=== PATIENT | female | born 1945 | race Caucasian/White ===

== ENCOUNTER 2017-05-18 03:08 | Inpatient (IN) ==
[2017-05-18] MEDS ORDERED: *HR* Morphine 2 MG/ML SYRINGE IVP PRN (09:02)
[2017-05-18] MEDS ORDERED: Naloxone 0.4 MG/ML INJ IVP PRN (09:02)
--- NOTE | 2017-05-18 09:13 | Internal Med History&Physical ---
Date of Encounter: 05/18/17 Time of Encounter: 09:08 Assessment and Plan (1) NSTEMI (non-ST elevated myocardial infarction) Current visit: No Status: Acute 72/female He has multiple comorbid conditions. Was evaluated at [facility] for worsening shortness of breath. Noted that patient denies chest pain at [facility] are now in this hospital. Patient was transferred to this hospital as she has elevated troponin: 0.89. I examined the patient and patient denied any chest pain but was complaining of difficulty breathing. Patient has a tracheostomy in place. The tracheostomy is functioning well. Patient is a previous history of for cardiac catheterization 20 years back and it was not a good experience for her. Patient is of opinion that cardiac catheterization is bad for health. Patient has a previous history of a coronary artery bypass graft. During my examination of the patient I received a message from RN that lab informed critical value of troponin more than 20. We did a stat EKG. EKG did not show any ST elevation. I personally discussed this case with Dr. Escamilla was interventional cardiology. Dr. Escamilla will take over care. (2) Diabetes mellitus Current visit: Yes Status: Acute Patient is known to have diabetes mellitus. Patient is presently on insulin pump. Patient does not remember endocrinology name. We will get our personal development educator and we will help her with the insulin pump management. I have discussed this with the patient's RN and she will arrange for the same. 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 Qualifiers: COPD type: unspecified COPD Qualified Code(s): J44.9 - Chronic obstructive pulmonary disease, unspecified (4) Tracheostomy in place Current visit: Yes Status: Acute Patient has a tracheostomy in place. Patient is unable to tell why she has a tracheostomy in place I do not think at this point patient needs an pulmonology/ ENT for tracheostomy care. I might call respiratory therapy Mariann to evaluate her tracheostomy. (5) DVT prophylaxis Current visit: Yes Status: Acute Internal Medicine - H&P: HPI Chief complaint: Difficulty in breating. Admitted From: Intrahospital Transfer Plans for Post Hospital Care: Home History of present illness: PCP: Dr. Tera Mcintosh. Brief past medical history: Known to have her diabetes on insulin pump, hypertension, hyperlipidemia, coronary artery disease, previous coronary artery bypass graft, COPD, known to have a tracheostomy, mild obesity. History of present medical illness: This patient is a transfer patient from [facility]. He was presented to the [facility] for difficulty in breathing. Patient did not call PCP in spite of that patient [facility] and was presented to the [place] emergency room. Patient claims that her difficulty in breathing got worse when her was suctioning her tracheostomy every and she informed her that she is not feeling good in terms of her shortness of breath and that is the reason they decided to call squad and go to the [facility] for further evaluation. Patient was evaluated in the [facility]. Noted that patient's troponin was 0.89 and that is the reason patient was sent to this hospital for further evaluation. Patient denies chest pain in the [facility] as well as patient denies chest pain during my examination. Reason for admission: Non-ST elevation myocardial infarction for further management. Family history: Noncontributory Past Med Surg Social Fam HX - Past Medical History Medical history: coronary artery disease, dementia, diabetes, hyperlipidemia, hypertension Psychiatric history: anxiety - Past Surgical History Surgical History: angioplasty/stent, cholecystectomy, coronary bypass (CABG), hysterectomy, orthopedic, other, other - Social History Smoking Status: Former smoker Smokeless Tobacco Status: No Alcohol use: rarely Drug use: none - Family History Mother Hx Family Cardiac Disorders: Yes ([place]) Internal Medicine - H&P: Meds Aspirin 81 mg PO DAILY 03/22/16 [History] Atorvastatin [Lipitor] 40 mg PO HS 03/22/16 [History] Clopidogrel [Plavix] 75 mg PO DAILY 03/22/16 [History] Insulin LISPRO [Humalog] 0 unit SQ DAILY 03/22/16 [History] Isosorbide MONOnitrate (24 HR) [Imdur] 60 mg PO BID 03/22/16 [History] Metoprolol [Lopressor] 100 mg PO BID 03/22/16 [History] rOPINIRole [Requip] 2 mg PO HS 03/22/16 [History] HydrOXYzine 10 mg PO Q6H PRN 12/16/16 [History] Gabapentin [Neurontin] 100 mg PO TID 05/18/17 [History] 3 Allergy/AdvReac Type Severity Reaction Status Date / Time cephalexin [From Keflex] Allergy Rash Verified 08/09/16 12:19 latex Allergy Rash Verified 08/09/16 12:19 morphine Allergy Confusion Verified 08/09/16 12:19 ibuprofen AdvReac Confusion Verified 08/09/16 12:19 metal Allergy Rash Uncoded 03/22/16 15:13 All Systems PM: A 10-system review of systems was performed and is negative for pertinent findings except as documented above in the HPI. - Constitutional Constitutional: no chills, no fever(s), no night sweats - EENT Eyes: no change in vision, no discharge, no pain, no photophobia Ears: no ear discharge, no ear pain, no tinnitus Nose, mouth and throat: no dysphagia, no nasal discharge, no neck pain, no sore throat - Cardiovascular Cardiovascular ROS IM: diaphoresis, dyspnea, palpitations, no chest pain, no lightheadedness, no syncope - Respiratory Respiratory: cough, dyspnea, wheezing, no excessive phlegm production - Gastrointestinal Gastrointestinal: no abdominal pain, no diarrhea, no hematemesis, no hematochezia, no melena, no nausea, no vomiting - Genitourinary Genitourinary: no change in urinary stream, no dysuria, no flank pain, no hematuria - Musculoskeletal Musculoskeletal ROS IM: no numbness, no tingling - Integumentary Integumentary IM: no rash, no unusual bruising - Neurological Neurological ROS: no confusion, no convulsions, no focal weakness, no numbness, no tingling, no tremor(s) - Hematologic/Lymphatic Hematologic/Lymphatic: no easy bruising - Constitutional Vitals: Temp Pulse Resp BP Pulse Ox 98.1 F 63 12 168/48 97 05/18/17 07:15 05/18/17 07:15 05/18/17 07:15 05/18/17 07:15 05/18/17 07:15 General appearance: Present: A&O X 3, pleasant, no acute distress, answers questions appropriately - Head Head exam: Present: atraumatic, normocephalic - Eye Eye exam: Present: PERRL, conjuntiva pink, sclera anicteric Pupils: Present: PERRL - Neck Neck exam general surgery: Present: supple, trachea midline. Absent: lymphadenopathy Additional comments: Patient has a well-placed tracheostomy. Tracheostomy is apparently functioning well. - Respiratory Respiratory exam: Present: CTAB. Absent: accessory muscle use, rales, rhonchi, wheezes - Cardiovascular Cardiovascular exam: Present: RRR, +S1, +S2. Absent: diastolic murmur, gallop, rubs, systolic murmur - GI/Abdominal GI/Abdominal exam: Present: normal bowel sounds, soft, no peritoneal signs. Absent: distended, tenderness Additional comments: Patient is a insulin pump. - Extremities Exam Extremities exam: Present: warm, radial pulses palpable and symmetrical. Absent : calf tenderness, cyanotic, pedal edema - Neurological Exam Neurological exam: Present: CN II-XII intact, oriented X3, no focal deficits. Absent: pronater drift, facial droop, speech deficit - Skin Skin exam: Present: dry, intact Internal Med - H&P Results - Labs Labs: Cardiac Enzymes 05/18/17 Range/Units 07:25 Troponin I 20.48 H* (0-0.03) ng/mL
[2017-05-18] MEDS ORDERED: Aspirin 325 MG TABLET PO SCH (09:15)
[2017-05-18 09:27] LABS: Basophils % 0.4 %; Eosinophils # 0.2 K/mcL (0.0-0.6); Hematocrit 36.3 % (35.3-44.9); Hemoglobin 11.9 g/dL (11.5-15.4); Immature Granulocytes % 0.3 % (0-4); Lymphocytes # 2.2 K/mcL (0.6-4.6); Lymphocytes % 21.3 %; Mean Corpuscular HGB Conc 32.8 g/dL (31.6-35.5); Mean Corpuscular Hemoglobin 30.8 pg (28.0-33.3); Mean Platelet Volume 12.3 fL (9.4-12.4); Monocytes # 0.8 K/mcL (0.0-1.3); Monocytes % 7.8 %; Neutrophils # 7.1 K/mcL (1.6-8.9); Platelet Count 157 K/mcL (140-400); Red Blood Count 3.86 M/mcL (3.82-4.97); Segmented Neutrophils % 68.2 %
[2017-05-18 09:28] LABS: Chol/HDL Ratio 2.8 (0-4.9); Cholesterol 123 mg/dL (< 200); HDL Cholesterol 44 mg/dL (40-59); LDL Cholesterol,Calculated 60 mg/dL (0-99); Triglycerides 97 mg/dL (< 150)
[2017-05-18 09:40] LABS: Alanine Aminotransferase 18 Units/L (0-55); Albumin 3.2 g/dL (3.5-5.0); Albumin/Globulin Ratio 0.8 (1.1-2.2); Alkaline Phosphatase 85 Units/L (38-126); Aspartate Amino Transferase 65 Units/L (5-34); BUN/Creatinine Ratio 20 (6-26); Bilirubin,Total 0.9 mg/dL (0.2-1.2); Blood Urea Nitrogen 16 mg/dL (7-20); Carbon Dioxide 30 mEq/L (19-29); Chloride 105 mEq/L (98-109); Globulin 4.1 g/dL (2.4-3.5); Glucose 114 mg/dL (70-99); Osmolality,Calculated 302 (280-300); Potassium 3.6 mEq/L (3.5-4.5); Sodium 145 mEq/L (136-145); Total Protein 7.3 g/dL (6.0-8.3); eGFR For African Americans > 60 (> 60); eGFR For Non-African Americans > 60 (> 60)
--- NOTE | 2017-05-18 10:15 | Cardiology Consult Note ---
Date of Encounter: 05/18/17 Time of Encounter: 10:12 Assessment and Plan (1) NSTEMI (non-ST elevated myocardial infarction) Current Visit: Yes Status: Acute Troponin 0.89, 20.48, 21.74. EKG with ischemic changes. Pt with known CAD hx--[facility] 07/2011: Three-vessel CAD, chronic occlusion of RCA and SVG to RPDA. Progression of disease in the mid RCA and RCA marginal branch 2 small for PCI. Stable LAD disease and proximal circumflex stent. Successful PCI to high-grade OM 3, which supplies collateral to an occluded RCA. Echo 09/02/16: LVEF 60-65%, mild concentric LVH, moderate LVDD. Recommend [facility] today. R/B/A discussed at length. Pt initially declined, but is now considering. She is hesitant due to dissection during [facility] in 1997 that warranted emergent CABG. She is waiting for her to get there, then will make a final decision. Continue heparin gtt, ASA, Statin, Plavix, BB. Echo to evaluate structure and function. Continue to follow. (2) CAD (coronary artery disease) Current Visit: Yes Status: Acute [facility] 07/2011: Three-vessel CAD, chronic occlusion of RCA and SVG to RPDA. Progression of disease in the mid RCA and RCA marginal branch 2 small for PCI. Stable LAD disease and proximal circumflex stent. Successful PCI to high-grade OM 3, which supplies collateral to an occluded RCA. ASA, Plavix, Statin, BB, Imdur. Qualifiers: Coronary Disease-Associated Artery/Lesion type: unspecified vessel or lesion type [place] vs. transplanted heart: [place] heart Associated angina: angina presence unspecified Qualified Code(s): I25.10 - Atherosclerotic heart disease of [place] coronary artery without angina pectoris Discussion w patient/family: The assessment and plan as outlined above was discussed with the patient and/or family members who expressed understanding and agreement. All questions were answered. Thank you for involving us in the care of your patient. Please call with any questions. I will discuss all the above with Dr. Talley and Andi and make changes as necessary. History of Present Illness Consult date: 05/18/17 Requesting physician: Darnell Ojeda Consult reason: NSTEMI Chief complaint: dyspnea History of present illness: Ms. Valero is a 72 year old female with PMH of tracheal stenosis s/p tracheostomy , CAD, prior PCI, prior CABG, DM type II, HLD, essential HTN, and MATT. Most recent [facility] in 2011 resulted in PCI to OM3. Pt presented with symptoms of feeling "unwell" yesterday morning then last night developed worsening dyspnea, cough and thick yellow secretions that prompted ED evaluation. Initial troponin 0.89, transferred to [facility] where troponin increased to 20.48, 21.74. Pt denies chest pain. EKG with ischemic changes. Previous records reviewed ([place]): [facility] 08/2008: EF 50%. Inferobasal hypokinesis. Left main normal. LAD proximal 40% stenosis, diffuse 30% stenosis. D1 90% stenosis (small vessel). Ramus ostial 90 % stenosis (small vessel). Circumflex mid 35% stenosis, proximal 95% stenosis ( stent placed). OM1 90% stenosis. RCA proximal 100% stenosis. Collaterals to RPDA territory. Carotid duplex 05/2011: Tortuous vessels bilaterally. No significant stenosis bilaterally. Pharmacological nuclear stress test 06/2011: Scarring of basal inferior segment , mild leatha-infarct ischemia. Reversible ischemia involving the anterior and posterior lateral and anteroapical segments. [facility] 07/2011: Three-vessel CAD, chronic occlusion of RCA and SVG to RPDA. Progression of disease in the mid RCA and RCA marginal branch 2 small for PCI. Stable LAD disease and proximal circumflex stent. Successful PCI to high-grade OM 3, which supplies collateral to an occluded RCA. Echo 09/02/16: LVEF 60-65%, mild concentric LVH, moderate LVDD. Past Med Surg Social Fam HX - Past Medical History Medical history: coronary artery disease, dementia, diabetes, hyperlipidemia, hypertension Psychiatric history: anxiety - Past Surgical History Surgical History: angioplasty/stent, cholecystectomy, coronary bypass (CABG), hysterectomy, orthopedic, other, other - Social History Smoking Status: Former smoker Smokeless Tobacco Status: No Alcohol use: rarely Drug use: none - Family History Mother Hx Family Cardiac Disorders: Yes ([place]) Medications and Allergies Aspirin 81 mg PO DAILY 03/22/16 [History] Atorvastatin [Lipitor] 40 mg PO HS 03/22/16 [History] Clopidogrel [Plavix] 75 mg PO DAILY 03/22/16 [History] Insulin LISPRO [Humalog] 0 unit SQ DAILY 03/22/16 [History] Isosorbide MONOnitrate (24 HR) [Imdur] 60 mg PO BID 03/22/16 [History] Metoprolol [Lopressor] 100 mg PO BID 03/22/16 [History] rOPINIRole [Requip] 2 mg PO HS 03/22/16 [History] HydrOXYzine 10 mg PO Q6H PRN 12/16/16 [History] Gabapentin [Neurontin] 100 mg PO TID 05/18/17 [History] 3 Allergy/AdvReac Type Severity Reaction Status Date / Time cephalexin [From Keflex] Allergy Rash Verified 08/09/16 12:19 latex Allergy Rash Verified 08/09/16 12:19 morphine Allergy Confusion Verified 08/09/16 12:19 ibuprofen AdvReac Confusion Verified 08/09/16 12:19 metal Allergy Rash Uncoded 03/22/16 15:13 All Systems Review: A 10-system review of systems was performed and is negative for pertinent findings except as documented above in the HPI. - Constitutional Constitutional: fatigue - Cardiovascular Cardiovascular: as per HPI, dyspnea at rest, dyspnea on exertion - Respiratory Respiratory: cough, dyspnea Physical Examination Vital Signs, Last 4 Hours Temp Pulse Resp BP Pulse Ox 05/18/17 07:15 98.1 F 63 12 168/48 97 Vital Signs Temp Pulse Resp BP Pulse Ox 05/18/17 07:15 98.1 F 63 12 168/48 97 05/18/17 05:15 98.2 F 65 16 153/54 97 Intake and Output 05/17/17 05/18/17 05/18/17 23:59 07:59 15:59 Intake Total 0 / 0 Output Total 0 / 0 Balance 0 / 0 Intake: Oral 0 / 0 Output: Urine 0 / 0 Other: Weight 90.6 kg Blood Glucose* 202 Patient Weight 05/18/17 23:59 Weight 90.6 kg General: Conversant, No Apparent Distress HEENT: Atraumatic, Normocephaly, Mucus Membranes Moist Neck: No JVD, Normal carotid pulses Cardiac: Reg Rate and Rhythm, Normal S1 and S2, No Murmur Lungs: Other (trach) Neuro: Alert and responsive, No focal deficits noted Abdomen: Soft, Non-Tender Skin: No rashes noted on visualized skin Musculoskeletal: No Chest Wall Tenderness Extremities: No Clubbing, No Cyanosis, No Edema, Normal Pulses Results 05/18/17 08:40 05/18/17 08:40 Lab Results 05/18/17 05/18/17 05/18/17 07:25 07:25 08:40 WBC Hgb Hct Plt Count APTT 30.4 Sodium 145 Potassium 3.6 Chloride 105 Carbon Dioxide 30 H BUN 16 Creatinine 0.79 Glucose 114 H Calcium 9.0 Total Bilirubin 0.9 AST 65 H ALT 18 Alkaline Phosphatase 85 Troponin I 20.48 H* 05/18/17 05/18/17 08:40 08:40 WBC 10.3 Hgb 11.9 Hct 36.3 Plt Count 157 APTT Sodium Potassium Chloride Carbon Dioxide BUN Creatinine Glucose Calcium Total Bilirubin AST ALT Alkaline Phosphatase Troponin I 21.74 H* Short CBC 05/18/17 Range/Units 08:40 WBC 10.3 (4.3-11.1) K/mcL Hgb 11.9 (11.5-15.4) g/dL Hct 36.3 (35.3-44.9) % Plt Count 157 (140-400) K/mcL Neutrophils # 7.1 (1.6-8.9) K/mcL BMP 05/18/17 Range/Units 08:40 Sodium 145 (136-145) mEq/L Potassium 3.6 (3.5-4.5) mEq/L Chloride 105 (98-109) mEq/L Carbon Dioxide 30 H (19-29) mEq/L BUN 16 (7-20) mg/dL Creatinine 0.79 (0.57-1.11) mg/dL Glucose 114 H (70-99) mg/dL Calcium 9.0 (8.6-10.8) mg/dL Cardiac Enzymes 05/18/17 05/18/17 Range/Units 08:40 07:25 Troponin I 21.74 H* 20.48 H* (0-0.03) ng/mL Liver Function 05/18/17 Range/Units 08:40 Total Bilirubin 0.9 (0.2-1.2) mg/dL AST 65 H (5-34) Units/L ALT 18 (0-55) Units/L Alkaline Phosphatase 85 (38-126) Units/L Albumin 3.2 L (3.5-5.0) g/dL Active Medications Aspirin (Aspirin) 81 mg PO DAILY [facility] Stop: 11/17/17 09:16 Atorvastatin Calcium (Lipitor) 40 mg PO HS [facility] Stop: 11/17/17 09:16 Clopidogrel Bisulfate (Plavix) 75 mg PO DAILY [facility] Stop: 11/18/17 09:01 Gabapentin (Neurontin) 100 mg PO TID [facility] Stop: 11/17/17 15:01 Isosorbide Mononitrate (Imdur) 60 mg PO BID [facility] Stop: 11/17/17 21:01 Metoprolol Tartrate (Lopressor) 100 mg PO BID [facility] Stop: 11/17/17 21:01 Morphine Sulfate (Morphine Sulfate) 2 mg IVP Q4HR PRN PRN Reason: Severe Pain (7-10) Stop: 11/17/17 09:03 Naloxone HCl (Narcan) 0.4 mg IVP Q2MIN PRN PRN Reason: Opioid Reversal Stop: 11/17/17 09:03 Ropinirole HCl (Requip) 2 mg PO HS [facility] Stop: 11/17/17 21:01 - Imaging and Cardiology Echo: report reviewed Cardiac cath: report reviewed - EKG Interpretation EKG results cardiology: personally reviewed (SR, ischemic changes) Consult Discharge Plan - Plan Referrals: Tera Mcintosh MD [Primary Care Provider] - 05/25/17 11:30 am
[2017-05-18] MEDS ORDERED: *HR* Heparin 10,000 UNIT/10 ML VIAL ONE (15:07)
[2017-05-18] MEDS ORDERED: Heparin 1,000 UNITS/500 mL NS 500 ML ONE (15:07)
[2017-05-18] MEDS ORDERED: 0.9 % Sodium Chloride 1,000 ML ONE ×2 (15:07→15:28)
[2017-05-18] MEDS ORDERED: Nitroglycerin 1,000 MCG/10 ML VIAL IV ONE (15:18)
[2017-05-18] MEDS: Gabapentin 100 MG CAPSULE PO SCH ×2 (15:20→21:26)
[2017-05-18] MEDS ORDERED: *HR* Heparin 5,000 UNIT/ML VIAL IVP PRN ×4 (15:28→15:42)
[2017-05-18] MEDS ORDERED: *HR* Heparin 5,000 UNIT/ML VIAL IVP ONE (15:28)
[2017-05-18] MEDS ORDERED: *HR* Midazolam HCl 2 MG/2 ML VIAL ONE (15:30)
[2017-05-18] MEDS ORDERED: Heparin 25,000 UNIT/500 ML D5W 25,000 UNIT/500 ML MLS IVC SCH ×2 (15:30→15:45)
[2017-05-18] MEDS ORDERED: *HR* Dextrose 50 % in Water (Syg) 50 ML SYRINGE ONE (15:42)
--- NOTE | 2017-05-18 17:57 | Invasive Diagnostic Lab Proc ---
Name: Sera Valero Date of Study: 05/18/2017 Date: 1945 Ht: 64.2in Medical Record#: [id number] Age: 72 Wt: 198.42lb Gender: Female BSA: 1.95 Order #: [id number] BMI: 33.87 Physicians Procedure Physician: Matthew Escamilla DO Referring MD: Referring MD: Staff Name Position Time In Mabel Rodriguez RN Franchise Sales Director 04:33 PM Wally Jenkins RN Monitor 04:33 PM Marjorie Palma RT (R) Scrub 04:33 PM Indications Indication Non-Stemi Procedures Performed Procedure L HRT ART/GRFT ANGIO Pre-Procedure Checklist Informed consent is complete signed and on chart. H&P is on chart. ID band is on and ID verified with patient. Patient NPO for procedure The procedure was described for the patient and questions were answered. Blood Pressure: 170/50 ECG is on chart. Rhythm: NSR Plan of Care Patient will tolerate the procedure without complications. Adequate level of comfort will be maintained. Hemodynamics will remain stable Patient will recover from procedure without complications. Respiratory function will be maintained. Cardiac rhythm will remain stable. Patient temperature will be maintained. Patient and/or family have verbalized understanding of the procedure. Patient Education Chief Complaint/Reason for Test: Cardiac Cath Developmental Category: Geriatric (65+ years) Developmentally Appropriate for Age: Yes Learning Barriers: None Education Needs: Procedure Education Method: Verbal Information Taught: Cardiac Cath Educational Evaluation: Able to repeat information Intravenous Access Time IV Size Location DC'd Fluid/Drip Rate Units RN PICC Line Lt Arm 0.9NaCl 25 ml/hr Shyann Carrington RN Allergies latex metal PCN (penicillin) cephalexin morphine ibuprofen Vital Signs Time BP (mmHg) HR (bpm) O2 Sat. RR (bpm) LOC 170 / 50 65 98 % 16 5 = Fully awake and oriented or at pre-proc level 04:34 PM / % 5 = Fully awake and oriented or at pre-proc level 04:34 PM / % 5 = Fully awake and oriented or at pre-proc level 04:42 PM 134 / 107 86 100 % 16 04:47 PM 181 / 62 58 99 % 04:51 PM 181 / 66 58 99 % 36 04:56 PM 188 / 69 59 99 % 05:01 PM 176 / 65 56 99 % 11 05:06 PM 177 / 62 57 98 % 18 05:11 PM 162 / 56 58 98 % 15 05:16 PM 173 / 63 60 98 % 23 05:21 PM 175 / 60 65 97 % 38 05:26 PM 179 / 41 67 100 % 24 05:31 PM 182 / 64 60 100 % 15 05:36 PM 184 / 68 64 99 % 11 05:41 PM 174 / 130 60 100 % 18 Procedural Medications Time Medication Dose Units Method Given By 03:39 PM Versed 1 mg Intravenous Shyann Carrington RN 03:39 PM Oxygen 4 L/min trach mask Shyann Carrington RN 01:00 AM 03:47 PM D50 0.5 amp Intravenous Shyann Carrington RN 04:39 PM Oxygen 6 L/min nasal cannula Mabel Rodriguez RN 04:46 PM Versed 1 mg Intravenous Mabel Rodriguez RN 04:55 PM Lidocaine 2% 10 ml Subcutaneous Matthew Escamilla DO ASA Classification: CLASS II- Mild systemic disease (i.e. well-controlled diabetes, hypertension, asthma, cigarette smoking) Bhargav Score Preprocedure Postprocedure Activity 2- Moves 4 extremities sustained head lift Activity 2- Moves 4 extremities sustained head lift Circulation 2- SBP +/= 20 points of pre-anesthetic level Circulation 2- SBP +/= 20 points of pre-anesthetic level Consciousness 2- Awake and alert oriented x 3 Consciousness 2- Awake and alert oriented x 3 O2 Saturation 2- Able to maintain O2 satruation of 92% on room air O2 Saturation 2- Able to maintain O2 satruation of 92% on room air Respiratory 2- Able to deep breathe and cough well Respiratory 2- Able to deep breathe and cough well Total Score 10 Total Score 10 Contrast Agent: Isovue Diagnostic Contrast: 75 ml Total Contrast: 75 ml Fluoro Dose: 446 mGy Procedure Log Time Note Enter By 03:39 PM Time: 15:39 Versed 1 mg Intravenous Given by Shyann Carrington RN 03:40 PM Time: 15:39 Oxygen on at 4 L/min per trach mask by Shyann Carrington RN 03:40 PM Accu Check 85 [email or web address] 03:47 PM Time: 15:47 D50 0.5 amp Intravenous Given by Shyann Carrington RN [email or web address] 04:19 PM CathStat 04:33 PM Pt arrived to ammunition assembly laborer 2 at 16:32 tsites 04:33 PM Mabel Rdoriguez RN Position: Franchise Sales Director Time in: 16:33 tsites 04:33 PM Wally Jenkins RN Position: Monitor Time in: 16:33 tsites 04:34 PM Marjorie Palma RT (R) Position: Scrub Time in: 16:33 tsites 04:34 PM Patient charges- Angio tray pack, Navilyst 3mm J, Pulse Oximetry and ACIST tubing and transducer tsites 04:34 PM Case Delayed no, inpt tsites 04:34 PM Hair removed from procedure site in procedure lab using clippers. Bilateral groin prepped with Chloraprep by Marjorie Palma RT (R), safety strap applied then patient was draped. Skin intact. tsites 04:34 PM Physican paged/called 16:34. tsites 04:34 PM Physican responded and notified patient is ready 16:34 tsites 04:34 PM Physician arrived 16:34 tsites 04:34 PM Meet and greet completed tsites 04:34 PM Sign in performed according to hospital policy. tsites 04:34 PM Procedure start 16:34 tsites 04:34 PM Time: 16:34 Patient comfortable and pain free: Yes tsites 04:34 PM Time: 16:34LOC: 5 = Fully awake and oriented or at pre-proc level tsites 04:40 PM Time: 16:39 Oxygen on at 6 L/min per nasal cannula by Mabel Rodriguez RN tsites 04:40 PM Nitro paste removed. tsites 04:40 PM Pts own insulin pump removed prior to starting. tsites 04:40 PM Vitals capture started with the following parameters, Patient=Adult, Interval=5 min, Initial Xyfbhcka=772 mmHg, Deflation Rate=5 mmHg, Cuff placed on Left Arm 04:42 PM HR=86 bpm, CSFQ=744/107 mmhg, ApL7=672.0 %, Resp=16 B/min, Comment=nsr 04:46 PM Time: 16:46 Versed 1 mg Intravenous Given by Mabel Rodriguez RN tsites 04:46 PM Clinical Presentation: Non-STEMI tsites 04:47 PM HR=58 bpm, YNKL=022/62 mmhg, SpO2=99.0 %, Comment=sb 04:50 PM Time: 16:34LOC: 5 = Fully awake and oriented or at pre-proc level tsites 04:50 PM Time: 16:34 Patient comfortable and pain free: Yes tsites 04:51 PM HR=58 bpm, XPXE=065/66 mmhg, SpO2=99.0 %, Resp=36 B/min, Comment=sb 04:52 PM Recorded ECG: HR=58 Condition=Condition 1 04:54 PM Time out performed according to hospital policy tsites 04:54 PM Pressure channel 2 zeroed. 04:55 PM Time: 16:55 10 ml Lidocaine 2% to left groin Subcutaneous Given by Matthew Escamilla, tsites 04:56 PM HR=59 bpm, JDGM=109/69 mmhg, SpO2=99.0 %, Comment=sb 05:01 PM HR=56 bpm, QWTE=929/65 mmhg, SpO2=99.0 %, Resp=11 B/min, Comment=sb 05:01 PM Unsuccessful access attempt # 1 into the left Femoral artery. Manual pressure applied to achieve hemostasis.. [facility] 05:04 PM Micro-Introducer Kit utilized for sheath placement [facility] 05:05 PM Access obtained by percutaneous puncture. 6Fr 10cm Terumo Jasper sheath placed in left Femoral artery. [id number] [facility] 05:05 PM 6Fr FR 4 catheter inserted over the wire [facility] 05:05 PM Catheter selectively placed in left ventricle [facility] 05:06 PM Recorded Pressure: LV, HR=59, Condition=Condition 1 (Left Ventricle) LV 170/4/17 05:06 PM Recorded Pressure: LV, Ao, HR=58, Condition=Condition 1 (Left Ventricle) LV 176/5/17, (Aorta) Ao 179/43/86 05:06 PM HR=57 bpm, AZWG=975/62 mmhg, SpO2=98.0 %, Resp=18 B/min, Comment=sb 05:06 PM Hand injected 10 ml into LV [facility] 05:07 PM Repositioned to RCA [facility] 05:07 PM RCA [facility]. [facility] 05[facility] PM Recorded Pressure: Ao, HR=55, Condition=Condition 1 (Aorta) Ao 151/51/82 05:11 PM HR=58 bpm, NRMU=434/56 mmhg, SpO2=98.0 %, Resp=15 B/min, Comment=sb 05:12 PM Catheter removed [email or web address] 05:12 PM 6Fr FL 4 catheter inserted over the wire DNC [email or web address] 05:13 PM Recorded Pressure: Ao, HR=61, Condition=Condition 1 (Aorta) Ao 153/35/73 05:13 PM LCA angiography performed in multiple views. [email or web address] 05:14 PM Recorded Pressure: Ao, HR=60, Condition=Condition 1 (Aorta) Ao 172/38/84 05:15 PM Coronary Dominance: right [email or web address] 05:16 PM HR=60 bpm, NYYE=334/63 mmhg, SpO2=98.0 %, Resp=23 B/min, Comment=sb 05:17 PM Catheter removed [email or web address] 05:17 PM Wire removed [email or web address] 05:18 PM Hand injected 5 ml contrast to Left groin [email or web address] 05:21 PM HR=65 bpm, DPNI=656/60 mmhg, SpO2=97.0 %, Resp=38 B/min, Comment=sb 05:22 PM Procedure completed at 17:20 [email or web address] 05:23 PM Sign out completed: Radiation Dose 446 mGy Fluoro Time: 4.3 Isovue 370 - 200ml contrast 75 ml given by Matthew Escamilla DO. Complications: NoneCardiac Rehab Consult needed: NoConfirmed administered medications: Yes [email or web address] 05:23 PM Isovue 370 - 200ml,1 Bottle(s) used. [email or web address] 05:23 PM Post ECG Sinus Bradycardia [email or web address] 05:23 PM Post Blood Pressure 175/60 [email or web address] 05:24 PM 17:24 Post Pulses Bilateral DP & PT 1+ [email or web address] 05:24 PM Information taught Cardiac Cath [email or web address] 05:24 PM Education needs Procedure, Plan of Care, and Responsibilities of Patient in Care [email or web address] 05:24 PM Learning barriers :None [email or web address] 05:25 PM Education Methods Verbal [email or web address] 05:25 PM Education evaluation Able to repeat information [email or web address] 05:26 PM HR=67 bpm, QJJE=346/41 mmhg, RbY2=132.0 %, Resp=24 B/min, Comment=nsr 05:27 PM Family placed in consult room. [email or web address] 05:27 PM Plavix, Effient or Brilinta given No [email or web address] 05:27 PM Delay to floor No [email or web address] 05:27 PM Complications: None [email or web address] 05:27 PM Fluoro Time: 4.3 [email or web address] 05:27 PM Isovue 370 - 200ml contrast 75 ml given by Matthew Escamilla DO. [email or web address] 05:28 PM Radiation Dose 446 mGy [email or web address] 05:28 PM Lesion found in Mid LAD. Pre Stenosis: 40 Pre MEME Flow: [email or web address] 05:28 PM Lesion found in 3rd Marginal. Pre Stenosis: 90 Pre MEME Flow: [email or web address] 05:28 PM Lesion found in Proximal RCA. Pre Stenosis: 100 Pre MEME Flow: [email or web address] 05:28 PM Mid/Distal Left Anterior Descending Coronary Artery and diagonal branches with 40% stenosis. If graft is supplying this area, 0 % stenosis [email or web address] 05:29 PM Circumflex, Obtuse Marginal, Left Posterior Descending, and Left Posterolateral Coronary Arteries with 90 % stenosis. If graft is supplying this area, 0 % stenosis [email or web address] 05:29 PM Right Coronary, Right Posterior Descending Arteries with Right Posterolateral and Acute Marginal branches with 100 % stenosis. If graft is supplying this area, 0 % stenosis jcallihan 05:31 PM HR=60 bpm, GAKM=083/64 mmhg, NnC8=678.0 %, Resp=15 B/min, Comment=nsr 05:33 PM Arterial sheath pulled using manual compression and V+ Pad for 15 minutes by Marjorie Palma RT (R) [email or web address] 05:35 PM Site status No bleeding/hematoma - Lt Groin as reported by Marjorie Palma RT (R) at 17:35 [email or web address] 05:36 PM Report given to Olga LA Pt taken to E Room # 34. 17:35 [email or web address] 05:36 PM HR=64 bpm, DZQW=281/68 mmhg, SpO2=99.0 %, Resp=11 B/min, Comment=nsr 05:41 PM HR=60 bpm, VWLH=095/130 mmhg, IbY9=839.0 %, Resp=18 B/min, Comment=nsr 05:49 PM ASA Class CLASS II- Mild systemic disease (i.e. well-controlled diabetes, hypertension, asthma, cigarette smoking) [email or web address] 05:50 PM Patient out of room: 17:50 [email or web address] Complications Complication None None Hemodynamics Pressures Site Systolic/A Wave Diastolic/V Wave Mean LV 170 4 17 LV 176 5 17 AO 179 43 86 AO 151 51 82 AO 153 35 73 AO 172 38 84 Post Procedure Information Blood Pressure: 175/60 mmHg Rhythm: Sinus Bradycardia Post procedural instructions were given Closure Device Time Device Success/Fail 05/18/2017 5:31:00 PM Manual Compression Successful Site Checks Time Location Status Staff Sheath In? Note 05:35 PM Lt Groin No bleeding/hematoma Marjorie Palma RT (R) Pulses Time Site Pre-Procedure Post-Procedure Note Bilateral DP & PT 1+ 5:24:00 PM Bilateral DP & PT 1+ Updated by Wally Jenkins RN on 05/18/2017 5:51:18 PM electronically signed on 05/18/2017 5:52:14 PM with status of Final
[2017-05-18] MEDS: 0.9 % Sodium Chloride 1,000 ML IVC SCH (18:28)
[2017-05-18] MEDS: rOPINIRole 1 MG TABLET PO SCH (19:22)
[2017-05-18] MEDS: Metoprolol 100 MG TABLET PO SCH (21:26)
[2017-05-18] MEDS: Isosorbide MONOnitrate (24 HR) 60 MG TAB.ER.24H PO SCH (21:26)
[2017-05-19] MEDS: 0.9 % Sodium Chloride 1,000 ML IVC SCH (02:11)
[2017-05-19 05:31] LABS: Basophils % 0.3 %; Eosinophils # 0.5 K/mcL (0.0-0.6); Eosinophils % 5.9 %; Hematocrit 31.8 % (35.3-44.9); Immature Granulocytes % 0.3 % (0-4); Lymphocytes % 24.8 %; Mean Corpuscular HGB Conc 32.1 g/dL (31.6-35.5); Mean Corpuscular Hemoglobin 30.9 pg (28.0-33.3); Mean Corpuscular Volume 96.4 fL (83.0-100.0); Mean Platelet Volume 12.5 fL (9.4-12.4); Monocytes # 0.8 K/mcL (0.0-1.3); Monocytes % 9.9 %; Neutrophils # 4.7 K/mcL (1.6-8.9); Platelet Count 134 K/mcL (140-400); Red Cell Distribution Width 13.1 % (11.5-14.5); Segmented Neutrophils % 58.8 %
[2017-05-19 05:33] LABS: INR 1.1; Prothrombin Time 12.4 Seconds (9.4-12.1)
[2017-05-19 05:36] LABS: Hemoglobin 10.2 g/dL (11.5-15.4)
[2017-05-19 05:57] LABS: Alanine Aminotransferase 14 Units/L (0-55); Albumin 2.6 g/dL (3.5-5.0); Albumin/Globulin Ratio 0.8 (1.1-2.2); Alkaline Phosphatase 69 Units/L (38-126); Aspartate Amino Transferase 35 Units/L (5-34); BUN/Creatinine Ratio 19 (6-26); Bilirubin,Total 0.7 mg/dL (0.2-1.2); Blood Urea Nitrogen 15 mg/dL (7-20); Calcium 8.3 mg/dL (8.6-10.8); Carbon Dioxide 32 mEq/L (19-29); Chloride 106 mEq/L (98-109); Globulin 3.2 g/dL (2.4-3.5); Glucose 116 mg/dL (70-99); Magnesium 1.7 mg/dL (1.6-2.6); Osmolality,Calculated 300 (280-300); Phosphorous 3.9 mg/dL (2.3-4.7); Potassium 3.7 mEq/L (3.5-4.5); Sodium 144 mEq/L (136-145); eGFR For African Americans > 60 (> 60); eGFR For Non-African Americans > 60 (> 60)
[2017-05-19 06:00] LABS: Total Protein 5.8 g/dL (6.0-8.3)
[2017-05-19] MEDS: Isosorbide MONOnitrate (24 HR) 60 MG TAB.ER.24H PO SCH ×2 (09:25→20:10)
[2017-05-19] MEDS: Metoprolol 100 MG TABLET PO SCH (09:26)
[2017-05-19] MEDS: Gabapentin 100 MG CAPSULE PO SCH ×3 (09:26→20:09)
[2017-05-19] MEDS: Aspirin 81 MG TAB.CHEW PO SCH (10:08)
--- NOTE | 2017-05-19 10:59 | Cardiology Progress Note ---
Date of Encounter: 05/19/17 Time of Encounter: 10:56 Assessment and Plan (1) NSTEMI (non-ST elevated myocardial infarction) Current Visit: Yes Status: Inactive Troponin 0.89, 20.48, 21.74. EKG with ischemic changes. Pt with known CAD hx of CABG and PCI. LHC yesterday revealed severe 3 vessel CAD--medical management, no intervention warranted. 40% mLAD, 90% 3rd marginal very small vessel, 100% pRCA. Echo pending. Continue ASA, Statin, Plavix, BB, Imdur. Right femoral access site healing well. No bleeding, hematoma or ecchymosis noted. Cardiology signing off. Reconsult PRN. Will coordinate outpt follow-up. (2) CAD (coronary artery disease) Current Visit: Yes Status: Acute ASA, Plavix, Statin, BB, Imdur. Qualifiers: Coronary Disease-Associated Artery/Lesion type: unspecified vessel or lesion type [place] vs. transplanted heart: [place] heart Associated angina: angina presence unspecified Qualified Code(s): I25.10 - Atherosclerotic heart disease of [place] coronary artery without angina pectoris Discussion w patient/family: The assessment and plan as outlined above was discussed with the patient and/or family members who expressed understanding and agreement. All questions were answered. Thank you for involving us in the care of your patient. Please call with any questions. I will discuss all the above with Dr. Talley and make changes as necessary. Subjective Principal diagnosis: NSTEMI Interval history: S/P LHC yesterday that revealed severe 3 vessel CAD. Medical management recommended, no intervention. Pt denies chest pain this AM. Reports dyspnea is improved. Echo pending. Objective Vital Signs Temp Pulse Resp BP Pulse Ox 05/19/17 06:54 97.6 F 54 16 168/59 100 05/19/17 04:00 98.3 F 60 18 157/46 100 05/18/17 22:46 97.7 F 65 17 168/32 99 05/18/17 21:00 97 05/18/17 20:00 98.1 F 84 21 193/50 97 05/18/17 19:03 78 16 155/75 99 05/18/17 18:40 66 16 154/50 99 05/18/17 18:25 60 16 120/91 99 05/18/17 18:23 60 16 120/91 98 05/18/17 18:11 52 16 166/52 99 05/18/17 11:39 98.2 F 65 14 170/50 98 Intake and Output 05/18/17 05/19/17 05/19/17 23:59 07:59 15:59 Intake Total 0 / 0 1165.1 / 1165.1 360 / 360 Output Total 0 / 0 0 / 0 Balance 0 / 0 1165.1 / 1165.1 360 / 360 Intake: IV Fluids 1165.1 / 1165.1 0.9 % Sodium Chloride 1,000 ML 800 / 800 @ 100 mls/hr IVC .Q10H [facility] Rx#: [id number] Heparin 25,000 UNIT/500 ML D5W 365.1 / 365.1 25,000 unit In 500 ml @ 11 UNIT /KG/HR 19.932 mls/hr IVC .Q24H YAS Rx#:[id number] Oral 0 / 0 0 / 0 360 / 360 Output: Urine 0 / 0 0 / 0 Other: Meal Breakfast Percent of Meal Consumed 100% Stool Size Moderate Stool Consistency liquid soft Stool Characteristics Normal for Patient Stool Color Brown # Voids 1 Blood Glucose* 209 115 General: Conversant, No Apparent Distress HEENT: Atraumatic, Normocephaly, Mucus Membranes Moist Neck: No JVD, Normal carotid pulses Cardiac: Reg Rate and Rhythm, Normal S1 and S2, No Murmur Lungs: Other (coarse, trach) Neuro: Alert and responsive, No focal deficits noted Abdomen: Soft, Non-Tender Skin: Other (left femoral access site healing well. No bleeding, hematoma, or ecchymosis noted.) Musculoskeletal: No Chest Wall Tenderness Extremities: No Clubbing, No Cyanosis, No Edema, Normal Pulses Results 05/19/17 04:48 05/19/17 04:48 Lab Results 05/18/17 05/19/17 05/19/17 14:20 02:03 04:48 WBC 7.9 Hgb 10.2 L D Hct 31.8 L Plt Count 134 L INR APTT 45.3 H 59.9 H Sodium Potassium Chloride Carbon Dioxide BUN Creatinine Glucose Calcium Magnesium Total Bilirubin AST ALT Alkaline Phosphatase B-Natriuretic Peptide 05/19/17 05/19/17 05/19/17 04:48 04:48 04:48 WBC Hgb Hct Plt Count INR 1.1 APTT Sodium 144 Potassium 3.7 Chloride 106 Carbon Dioxide 32 H BUN 15 Creatinine 0.78 Glucose 116 H Calcium 8.3 L Magnesium 1.7 Total Bilirubin 0.7 AST 35 H ALT 14 Alkaline Phosphatase 69 B-Natriuretic Peptide 1311 H 05/19/17 09:28 WBC Hgb Hct Plt Count INR APTT 58.2 H Sodium Potassium Chloride Carbon Dioxide BUN Creatinine Glucose Calcium Magnesium Total Bilirubin AST ALT Alkaline Phosphatase B-Natriuretic Peptide Short CBC 05/19/17 Range/Units 04:48 WBC 7.9 (4.3-11.1) K/mcL Hgb 10.2 L D (11.5-15.4) g/dL Hct 31.8 L (35.3-44.9) % Plt Count 134 L (140-400) K/mcL Neutrophils # 4.7 (1.6-8.9) K/mcL BMP 05/19/17 Range/Units 04:48 Sodium 144 (136-145) mEq/L Potassium 3.7 (3.5-4.5) mEq/L Chloride 106 (98-109) mEq/L Carbon Dioxide 32 H (19-29) mEq/L BUN 15 (7-20) mg/dL Creatinine 0.78 (0.57-1.11) mg/dL Glucose 116 H (70-99) mg/dL Calcium 8.3 L (8.6-10.8) mg/dL Liver Function 05/19/17 Range/Units 04:48 Total Bilirubin 0.7 (0.2-1.2) mg/dL AST 35 H (5-34) Units/L ALT 14 (0-55) Units/L Alkaline Phosphatase 69 (38-126) Units/L Albumin 2.6 L (3.5-5.0) g/dL Active Medications Aspirin (Aspirin) 81 mg PO DAILY [facility] Stop: 11/17/17 09:16 Last Admin: 05/19/17 10:08 Dose: 81 mg Atorvastatin Calcium (Lipitor) 40 mg PO HS [facility] Stop: 11/17/17 09:16 Last Admin: 05/18/17 21:26 Dose: 40 mg Clopidogrel Bisulfate (Plavix) 75 mg PO DAILY [facility] Stop: 11/18/17 09:01 Last Admin: 05/19/17 09:26 Dose: 75 mg Gabapentin (Neurontin) 100 mg PO TID [facility] Stop: 11/17/17 15:01 Last Admin: 05/19/17 09:26 Dose: 100 mg Heparin Sodium (Porcine) (Heparin) 5,000 unit SQ Q12HCO [facility] Stop: 11/18/17 18:01 Sodium Chloride (0.9 % Sodium Chloride) 1,000 mls @ 100 mls/hr IVC .Q10H [facility] Stop: 11/17/17 16:31 Last Admin: 05/19/17 02:11 Dose: 100 mls/hr Isosorbide Mononitrate (Imdur) 60 mg PO BID [facility] Stop: 11/17/17 21:01 Last Admin: 05/19/17 09:25 Dose: 60 mg Metoprolol Tartrate (Lopressor) 100 mg PO BID [facility] Stop: 11/17/17 21:01 Last Admin: 05/19/17 09:26 Dose: 100 mg Morphine Sulfate (Morphine Sulfate) 2 mg IVP Q4HR PRN PRN Reason: Severe Pain (7-10) Stop: 11/17/17 09:03 Naloxone HCl (Narcan) 0.4 mg IVP Q2MIN PRN PRN Reason: Opioid Reversal Stop: 11/17/17 09:03 Ropinirole HCl (Requip) 2 mg PO HS [facility] Stop: 11/17/17 21:01 Last Admin: 05/18/17 19:22 Dose: 2 mg - Imaging and Cardiology Echo: pending Cardiac cath: report reviewed - EKG Interpretation EKG results cardiology: other (12 hr tele AVG HR 56, SR) Consult Discharge Plan - Plan Additional Instructions: RISK FACTORS: STOP SMOKING: If you smoke, STOP. Smoking or tobacco use significantly increases your risk of heart disease because nicotine causes the arteries to narrow or constrict. It also causes fats to stick to the artery. Your chances of having a heart attack are greatly increased if you continue to smoke. For more information, call the education line for smoking cessation 6-174-KVSZUAY EAT A LOW FAT/CHOLESTEROL/SODIUM DIET: This diet may help reduce your chances of having a heart attack. LIFTING: Avoid lifting anything more than 10 pounds for 5-7 days Prior to straining, laughing, sneezing and/or coughing, apply manual pressure directly over insertion site. ACTIVITY: You may walk or climb stairs as tolerated You can resume sexual activity as tolerated In general, you are encouraged to engage in a minimum of 30 minutes or more of moderate intensity physical activity, such as brisk walking, daily or at least 3 -4 times weekly BATHING Do not submerge the site into water (bath tub, hot tub, swimming pool) for 1 week. This can be a source for infection into the blood stream. You may shower after 24 hours SITE CARE: After 24 hours, you may remove the dressing and leave the site open to air. Keep the site clean and dry. Clean gently and pat dry. You can expect bruising and tenderness that gradually resolve within a week or two. Return to work as instructed per your physician Resume driving as instructed per physician Keep all scheduled follow up appointments Resume medications as instructed IMPORTANT: If prescribed a Platelet Aggregation Inhibitor such as, Plavix, Brilinta or Effient: Duration of therapy is minimum one year These medications are often used in combination with Aspirin in prevention of future heart attacks Never discontinue unless consult with your Respite Provider STROKE (CVA) Risk factors for a stroke are: Age, cigarette smoking, diabetes, excessive alcohol consumption, family history, high blood pressure, overweight, physical inactivity, prior stroke, heart attack, diagnosis of carotid artery stenosis or other artery disease. Warning signs: Sudden numbness or weakness of the face, arm or leg; especially on one side of the body, sudden confusion, trouble speaking or understanding, sudden trouble seeing in one or both eyes, sudden trouble walking, dizziness, loss of balance or coordination, sudden severe headache with no cause. Call 911 or go to the Emergency Room. CONGESTIVE HEART FAILURE: If you have been diagnosed with Congestive Heart Failure (CHF) and your symptoms return, make an appointment with your physician Weigh yourself daily. Notify your physician if you have a weight gain of two or more pounds in one day or five or more pounds in one week. If you experience any difficulty breathing, please call 911 BLEEDING: Although the risk of bleeding is minimal, it can happen. If you have any bleeding from the site, apply firm pressure above the puncture site for 10-15 minutes. If the bleeding does not stop, continue manual pressure and call 911 Contact your physician if: You develop a fever greater than 101 degrees Fahrenheit Your site becomes reddened or has any drainage You have an increase in pain or burning at the site or if a large knot forms at the site. If you experience chest pain, shortness of breath, dizziness, or extreme tiredness, stop the activity and rest. Please notify your physicians office if you experience any of these symptoms and they are not relieved by rest please call 911! Referrals: Tera Mcintosh MD [Primary Care Provider] - 05/25/17 11:30 am
[2017-05-19] MEDS ORDERED: Dextrose Gel 15 GM PO PRN ×2 (11:37)
[2017-05-19] MEDS ORDERED: D5% in Water 1,000 ML IVC PRN (11:37)
[2017-05-19] MEDS ORDERED: *HR* Dextrose 50 % in Water (Syg) 50 ML SYRINGE IVP PRN (11:37)
[2017-05-19] MEDS ORDERED: Furosemide 40 MG/4 ML VIAL IVP ONE (14:42)
--- NOTE | 2017-05-19 15:16 | Discharge Summary ---
<Tenzin Rogers - Last Filed: 05/19/17 15:51> Date of Encounter: 05/19/17 Time of Encounter: 15:13 - Discharge Diagnosis (1) NSTEMI (non-ST elevated myocardial infarction) Priority: Primary Status: Acute (2) Tracheitis Priority: Secondary Status: Acute (3) CAD (coronary artery disease) Priority: Secondary Status: Acute Qualifiers: Coronary Disease-Associated Artery/Lesion type: unspecified vessel or lesion type [place] vs. transplanted heart: [place] heart Associated angina: angina presence unspecified Qualified Code(s): I25.10 - Atherosclerotic heart disease of [place] coronary artery without angina pectoris (4) Diabetes mellitus Priority: Secondary Status: Acute Qualifiers: Diabetes mellitus type: other specified (including NGUYEN) Diabetes mellitus complication status: with unspecified complications Diabetes mellitus chcf insulin use: with chcf use Qualified Code(s): E13.8 - Other specified diabetes mellitus with unspecified complications; Z79.4 - FDC ( current) use of insulin; Z79.4 - engineering test specialist (current) use of insulin; Z79.4 - engineering test specialist (current) use of insulin; Z79.4 - engineering test specialist (current) use of insulin (5) COPD (chronic obstructive pulmonary disease) Priority: Secondary Status: Acute Qualifiers: COPD type: unspecified COPD Qualified Code(s): J44.9 - Chronic obstructive pulmonary disease, unspecified (6) Tracheostomy in place Priority: Secondary Status: Acute (7) DVT prophylaxis Priority: Secondary Status: Acute - Discharge Medications Prescriptions: Doxycycline 100 mg PO BID #20 capsule Furosemide [Lasix] 40 mg PO DAILY #30 tablet Home Medications: Aspirin 81 mg PO DAILY 03/22/16 [History] Atorvastatin [Lipitor] 40 mg PO HS 03/22/16 [History] Clopidogrel [Plavix] 75 mg PO DAILY 03/22/16 [History] Insulin LISPRO [Humalog] 0 unit SQ DAILY 03/22/16 [History] Isosorbide MONOnitrate (24 HR) [Imdur] 60 mg PO BID 03/22/16 [History] Metoprolol [Lopressor] 100 mg PO BID 03/22/16 [History] rOPINIRole [Requip] 2 mg PO HS 03/22/16 [History] HydrOXYzine 10 mg PO Q6H PRN 12/16/16 [History] Gabapentin [Neurontin] 100 mg PO TID 05/18/17 [History] Doxycycline 100 mg PO BID #20 capsule 05/19/17 [Rx] Furosemide [Lasix] 40 mg PO DAILY #30 tablet 05/19/17 [Rx] Allergies/Adverse Reactions: 3 Allergy/AdvReac Type Severity Reaction Status Date / Time cephalexin [From Keflex] Allergy Rash Verified 08/09/16 12:19 latex Allergy Rash Verified 08/09/16 12:19 morphine Allergy Confusion Verified 08/09/16 12:19 ibuprofen AdvReac Confusion Verified 08/09/16 12:19 metal Allergy Rash Uncoded 03/22/16 15:13 Procedures/tests Complete & Pending: Procedures Performed prior 72 hours Category Date Time Status CT chest wo con [CT] Stat Cat Scan 05/19/17 11:36 Draft CL Cardiac Catheterization [CL] Routine Application Support Analyst 05/18/17 12:17 Completed EKG [ECG 12 lead ECG] [ECG] Stat Y 05/18/17 07:07 Completed EV echocardiogram Routine Y 05/18/17 12:18 Completed Date of admission: 05/18/17 10:48 Primary care physician: Tera Mcintosh MD Consults: 05/18/17 09:06 Consult to Cardiology [CONS] Stat Comment: Consulting Provider: Cardiology Dannemora Reason for Consult: NSTEMI: trop >20,spoken to Dr Escamilla in person at cardiology reading room. Call Completed: Yes 05/19/17 08:03 Consult to Cardiac Rehabilitation-Phase1 [CONS] Routine Comment: Reason for Consult: NSTEMI Call Completed: No 05/19/17 14:21 Consult to Pulmonology [CONS] Routine Consulting Provider: Pulm Crit Care & Sleep Katie Reason for Consult: Hypoxia and chronic respiratory failure requiring increasing amount of home O2, and increased mucus production collectin in her tracheostomy tube. Bilateral pleural effusions, atelectasis, and ground-galss opacity on chest CT Call Completed: Yes Discharging clinician: Tenzin Rogers Anticipated date of discharge: 05/19/17 - Patient Status Disposition: Home, Self-Care Condition: Fair Functional capacity at discharge: independent ambulation Overall status at discharge: patient is progressing back to baseline - Discharge Instructions Instructions: Furosemide (By mouth), Doxycycline (By mouth), Myocardial Infarction (DC), Diabetes Mellitus Type 2 in Adults (DC) Follow Up With: Huy Talley MD [Partnered Physician] - (office will call patient at home with appointment date and time) Tera Mcintosh MD [Primary Care Provider] - 05/25/17 11:30 am Becca Hoffmann MD [Partnered Physician] - (office will call patient at home with appointment date and time) Additional Instructions: Take your medications as prescribed Complete Doxycycline twice daily for 10 days Take Lasix 40mg daily Use incentive spirometry at home daily Use ventilator at night Follow-up with your primary care physician Follow-up with Cardiology Follow-up with Pulmonology in 6-8 weeks Return to the hospital if your symptoms return or worsen RISK FACTORS: STOP SMOKING: If you smoke, STOP. Smoking or tobacco use significantly increases your risk of heart disease because nicotine causes the arteries to narrow or constrict. It also causes fats to stick to the artery. Your chances of having a heart attack are greatly increased if you continue to smoke. For more information, call the education line for smoking cessation 2-384-CMVJIIJ EAT A LOW FAT/CHOLESTEROL/SODIUM DIET: This diet may help reduce your chances of having a heart attack. LIFTING: Avoid lifting anything more than 10 pounds for 5-7 days Prior to straining, laughing, sneezing and/or coughing, apply manual pressure directly over insertion site. ACTIVITY: You may walk or climb stairs as tolerated You can resume sexual activity as tolerated In general, you are encouraged to engage in a minimum of 30 minutes or more of moderate intensity physical activity, such as brisk walking, daily or at least 3 -4 times weekly BATHING Do not submerge the site into water (bath tub, hot tub, swimming pool) for 1 week. This can be a source for infection into the blood stream. You may shower after 24 hours SITE CARE: After 24 hours, you may remove the dressing and leave the site open to air. Keep the site clean and dry. Clean gently and pat dry. You can expect bruising and tenderness that gradually resolve within a week or two. Return to work as instructed per your physician Resume driving as instructed per physician Keep all scheduled follow up appointments Resume medications as instructed IMPORTANT: If prescribed a Platelet Aggregation Inhibitor such as, Plavix, Brilinta or Effient: Duration of therapy is minimum one year These medications are often used in combination with Aspirin in prevention of future heart attacks Never discontinue unless consult with your Slide Fasteners Inspector STROKE (CVA) Risk factors for a stroke are: Age, cigarette smoking, diabetes, excessive alcohol consumption, family history, high blood pressure, overweight, physical inactivity, prior stroke, heart attack, diagnosis of carotid artery stenosis or other artery disease. Warning signs: Sudden numbness or weakness of the face, arm or leg; especially on one side of the body, sudden confusion, trouble speaking or understanding, sudden trouble seeing in one or both eyes, sudden trouble walking, dizziness, loss of balance or coordination, sudden severe headache with no cause. Call 911 or go to the Emergency Room. CONGESTIVE HEART FAILURE: If you have been diagnosed with Congestive Heart Failure (CHF) and your symptoms return, make an appointment with your physician Weigh yourself daily. Notify your physician if you have a weight gain of two or more pounds in one day or five or more pounds in one week. If you experience any difficulty breathing, please call 911 BLEEDING: Although the risk of bleeding is minimal, it can happen. If you have any bleeding from the site, apply firm pressure above the puncture site for 10-15 minutes. If the bleeding does not stop, continue manual pressure and call 911 Contact your physician if: You develop a fever greater than 101 degrees Fahrenheit Your site becomes reddened or has any drainage You have an increase in pain or burning at the site or if a large knot forms at the site. If you experience chest pain, shortness of breath, dizziness, or extreme tiredness, stop the activity and rest. Please notify your physicians office if you experience any of these symptoms and they are not relieved by rest please call 911! - Diet and Activity Activity: increase activity as tolerated Diet: diabetic diet, low fat, low cholesterol, low salt diet Interval History: Pt sitting up in bed upon my exam. Reports continued dyspnea. Reports cough and mucus production collecting in her tracheostomy tube for the past couple months. She denies fevers, chills, syncope, chest, pain, orthopnea, N/V/D/C, dysuria, or leg pain. Hospital course: Ms. Valero is a 72 year old female with PMH of CAD with CABG, COPD, HTN, HLD, DM on insulin pump, and tracheostomy (4 years) presented from [facility] with a NSTEMI. Troponin was 0.89. Her primary complaint was dyspnea without chest pain. Cardiology was consulted. Echo shows LVEF 50-55%, normal LV chamber size and function. Mild concentric left ventricular hypertrophy. Mild segmental left ventricular systolic dysfunction. Moderate left ventricular diastolic dysfunction. Normal right ventricular structure and function. Mild pulmonic regurgitation. No evidence of pulmonary hypertension. Cardiac cath shows graphs in place with severe three vessel disease with 40% blockage in LAD, 90% in CIRC , and 100% in RCA recommending medical management. The patient will continue ASA , plavix, statin, BB, Imdur, and add Lasix 40mg daily. She also is complaining of mucus production and collection in her tracheostomy. CT Chest shows small bilateral pleural effusions with mild passive atelectasis within the bilateral lower lobes, mild scattered ground-glass opacity throughout both lungs and new nonspecific 5 mm ground-glass nodule within the right upper lobe with recommended follow-up in the future. Pulmonology was consulted and suggests adding Doxycycline 100mg BID for tracheitis/bronchitis. She is also recommended to use an incentive spirometry at home and continue using nighttime ventilation. She is hemodynamically stable and will discharged home with follow- up with her PCP, Cardiology, and Pulmonology. - Time Spent with Patient Total time spent providing and/or coordinating discharge services: Greater than 30 minutes - Constitutional Vitals: Temp Pulse Resp BP Pulse Ox 98.5 F 72 18 175/65 98 05/19/17 11:00 05/19/17 11:00 05/19/17 11:00 05/19/17 11:00 05/19/17 11:00 General appearance: Present: A&O X 3, pleasant, no acute distress, answers questions appropriately - Head Head exam: Present: atraumatic, normocephalic - Eye Eye exam: Present: conjuntiva pink, sclera anicteric - Neck Neck exam general surgery: Present: supple, trachea midline. Absent: lymphadenopathy - Respiratory Respiratory exam: Present: decreased breath sounds. Absent: accessory muscle use, rales, rhonchi, wheezes - Cardiovascular Cardiovascular exam: Present: RRR, +S1, +S2. Absent: diastolic murmur, systolic murmur - GI/Abdominal GI/Abdominal exam: Present: normal bowel sounds, soft, no peritoneal signs. Absent: distended, tenderness - Extremities Exam Extremities exam: Present: warm, radial pulses palpable and symmetrical. Absent : calf tenderness, cyanotic, pedal edema - Neurological Exam Neurological exam: Present: CN II-XII intact, oriented X3, no focal deficits. Absent: facial droop, speech deficit - Skin Skin exam: Present: dry, intact <Cy Garcia - Last Filed: 05/19/17 16:36> Date of Encounter: 05/19/17 Procedures/tests Complete & Pending: Procedures Performed prior 72 hours Category Date Time Status CT chest wo con [CT] Stat Cat Scan 05/19/17 11:36 Draft CL Cardiac Catheterization [CL] Routine Application Support Analyst 05/18/17 12:17 Completed EKG [ECG 12 lead ECG] [ECG] Stat Y 05/18/17 07:07 Completed EV echocardiogram Routine Y 05/18/17 12:18 Completed Date of admission: 05/18/17 10:48 Primary care physician: Tera Mcintosh MD Consults: 05/18/17 09:06 Consult to Cardiology [CONS] Stat Comment: Consulting Provider: Cardiology Dannemora Reason for Consult: NSTEMI: trop >20,spoken to Dr Escamilla in person at cardiology reading room. Call Completed: Yes 05/19/17 08:03 Consult to Cardiac Rehabilitation-Phase1 [CONS] Routine Comment: Reason for Consult: NSTEMI Call Completed: No 05/19/17 14:21 Consult to Pulmonology [CONS] Routine Consulting Provider: Pulm Crit Care & Sleep Dannemora Reason for Consult: Hypoxia and chronic respiratory failure requiring increasing amount of home O2, and increased mucus production collectin in her tracheostomy tube. Bilateral pleural effusions, atelectasis, and ground-galss opacity on chest CT Call Completed: Yes Hospital course: Ms. Valero is a 72 year old female - Time Spent with Patient Total time spent providing and/or coordinating discharge services: - Constitutional Vitals: Temp Pulse Resp BP Pulse Ox 98.4 F 53 18 168/59 100 05/19/17 15:37 05/19/17 15:37 05/19/17 11:00 05/19/17 15:37 05/19/17 15:37 - Attending Attestation I have seen and examined pt independently, I have discussed with Resident physician Dr Llanes regarding the management plan. Agree with the documentation. Pt feels mild SOB, no chest pain. LHC shows unstentable CAD, cardio recommend aggressive medical management. Pulmonology consult appreciated, will start doxycyclin po. BNP elevated. Echo shows diastolic and systolic CHF, will give lasix 40mg iv once and followed by lasix po 40mg daily. Pt will f/u with PCP in one week to reevaluate fluid status.
--- NOTE | 2017-05-19 15:25 | Pulmonology Consult Note ---
Date of Encounter: 05/19/17 Time of Encounter: 14:00 Assessment and Plan (1) Tracheitis Current Visit: Yes Status: Acute Patient for the past 2-3 weeks is having increased secretions which is thick yellow secretions will treat with 10 days of Doxycycline 100 mg BID will follow at outpatient pulmonary 6-8 weeks. (2) COPD (chronic obstructive pulmonary disease) Current Visit: Yes Status: Acute Symptoms are stable she uses RAVEN prn to continue with current home management she doesnt look like she in exacerbation will not give steroids . Qualifiers: COPD type: unspecified COPD Qualified Code(s): J44.9 - Chronic obstructive pulmonary disease, unspecified (3) Chronic respiratory failure with hypoxia Current Visit: Yes Status: Acute Patient increased O2 requirements is secondary due to acute on chronic diastolic heart failure with imaging showing ground glass opacities recommended home diuretic regimen , patient has bilateral atelectasis will send her home on incentive spirometry. (4) Lung nodule seen on imaging study Current Visit: Yes Status: Acute Patient has RUL 5 mm ground glass nodule will need outpatient imaging 3-6 months. History of Present Illness Consult date: 05/19/17 Requesting physician: Tenzin Rogers Reason for consult: dyspnea, cough, other (increased sputum from tracheostomy ) Chief complaint: Shortness of breadth History of present illness: 72 year old female with past medical history significant for HTN, CAD with NSTEMI during this admission came to the hospital with increased shortness of breadth , patient has chronic tracheostomy most likely due to chronic hypercapnic respiratory failure secondary to COPD patient says she is on a home ventilator patient denies any chest pain , shortness of breadth is at baseline patient is saying for the past week she is having increased secretions which is yellow to green , denies any fever or chills in this admission she was found to have NSTEMI left heart cath was done no stent was put in medical management . ECHO showed HFPEF ,pulmonary was consulted was evaluated for increased secretions from tracheostomy. Past Med Surg Social Fam HX - Past Medical History Medical history: coronary artery disease, dementia, diabetes, hyperlipidemia, hypertension Psychiatric history: anxiety - Past Surgical History Surgical History: angioplasty/stent, cholecystectomy, coronary bypass (CABG), hysterectomy, orthopedic, other, other - Social History Smoking Status: Former smoker Smokeless Tobacco Status: No Alcohol use: rarely Drug use: none - Family History Mother Hx Family Cardiac Disorders: Yes (ND) Medications and Allergies Aspirin 81 mg PO DAILY 03/22/16 [History] Atorvastatin [Lipitor] 40 mg PO HS 03/22/16 [History] Clopidogrel [Plavix] 75 mg PO DAILY 03/22/16 [History] Insulin LISPRO [Humalog] 0 unit SQ DAILY 03/22/16 [History] Isosorbide MONOnitrate (24 HR) [Imdur] 60 mg PO BID 03/22/16 [History] Metoprolol [Lopressor] 100 mg PO BID 03/22/16 [History] rOPINIRole [Requip] 2 mg PO HS 03/22/16 [History] HydrOXYzine 10 mg PO Q6H PRN 12/16/16 [History] Gabapentin [Neurontin] 100 mg PO TID 05/18/17 [History] Doxycycline 100 mg PO BID #20 capsule 05/19/17 [Rx] 3 Allergy/AdvReac Type Severity Reaction Status Date / Time cephalexin [From Keflex] Allergy Rash Verified 08/09/16 12:19 latex Allergy Rash Verified 08/09/16 12:19 morphine Allergy Confusion Verified 08/09/16 12:19 ibuprofen AdvReac Confusion Verified 08/09/16 12:19 metal Allergy Rash Uncoded 03/22/16 15:13 All Systems: A 10-system review of systems was performed and is negative for pertinent findings except as documented above in the HPI. Physical Examination Auscultation: bilateral: wheezes (mild scattered wheezes.) Results - Laboratory Findings CBC and BMP: 05/19/17 04:48 05/19/17 04:48 PT/INR, D-dimer PT 12.4 Seconds (9.4-12.1) H 05/19/17 04:48 Abnormal lab findings: Abnormal lab results RBC 3.30 M/mcL (3.82-4.97) L 05/19/17 04:48 Hgb 10.2 g/dL (11.5-15.4) L D 05/19/17 04:48 Hct 31.8 % (35.3-44.9) L 05/19/17 04:48 Plt Count 134 K/mcL (140-400) L 05/19/17 04:48 MPV 12.5 fL (9.4-12.4) H 05/19/17 04:48 PT 12.4 Seconds (9.4-12.1) H 05/19/17 04:48 APTT 58.2 Seconds (26.0-36.0) H 05/19/17 09:28 Carbon Dioxide 32 mEq/L (19-29) H 05/19/17 04:48 Glucose 116 mg/dL (70-99) H 05/19/17 04:48 Calcium 8.3 mg/dL (8.6-10.8) L 05/19/17 04:48 AST 35 Units/L (5-34) H 05/19/17 04:48 Troponin I 21.74 ng/mL (0-0.03) H* 05/18/17 08:40 B-Natriuretic Peptide 1311 pg/mL (0-100) H 05/19/17 04:48 Serum Total Protein 5.8 g/dL (6.0-8.3) L D 05/19/17 04:48 Albumin 2.6 g/dL (3.5-5.0) L 05/19/17 04:48 Albumin/Globulin Ratio 0.8 (1.1-2.2) L 05/19/17 04:48 - Clinical Findings Intake & Output: Intake & Output 05/18/17 05/19/17 05/19/17 23:59 07:59 15:59 Intake Total 0 / 0 1165.1 / 1165.1 360 / 360 Output Total 0 / 0 0 / 0 Balance 0 / 0 1165.1 / 1165.1 360 / 360 Consult Discharge Plan - Plan Additional Instructions: RISK FACTORS: STOP SMOKING: If you smoke, STOP. Smoking or tobacco use significantly increases your risk of heart disease because nicotine causes the arteries to narrow or constrict. It also causes fats to stick to the artery. Your chances of having a heart attack are greatly increased if you continue to smoke. For more information, call the education line for smoking cessation 7-418-ODNJXRQ EAT A LOW FAT/CHOLESTEROL/SODIUM DIET: This diet may help reduce your chances of having a heart attack. LIFTING: Avoid lifting anything more than 10 pounds for 5-7 days Prior to straining, laughing, sneezing and/or coughing, apply manual pressure directly over insertion site. ACTIVITY: You may walk or climb stairs as tolerated You can resume sexual activity as tolerated In general, you are encouraged to engage in a minimum of 30 minutes or more of moderate intensity physical activity, such as brisk walking, daily or at least 3 -4 times weekly BATHING Do not submerge the site into water (bath tub, hot tub, swimming pool) for 1 week. This can be a source for infection into the blood stream. You may shower after 24 hours SITE CARE: After 24 hours, you may remove the dressing and leave the site open to air. Keep the site clean and dry. Clean gently and pat dry. You can expect bruising and tenderness that gradually resolve within a week or two. Return to work as instructed per your physician Resume driving as instructed per physician Keep all scheduled follow up appointments Resume medications as instructed IMPORTANT: If prescribed a Platelet Aggregation Inhibitor such as, Plavix, Brilinta or Effient: Duration of therapy is minimum one year These medications are often used in combination with Aspirin in prevention of future heart attacks Never discontinue unless consult with your Food Sanitarian STROKE (CVA) Risk factors for a stroke are: Age, cigarette smoking, diabetes, excessive alcohol consumption, family history, high blood pressure, overweight, physical inactivity, prior stroke, heart attack, diagnosis of carotid artery stenosis or other artery disease. Warning signs: Sudden numbness or weakness of the face, arm or leg; especially on one side of the body, sudden confusion, trouble speaking or understanding, sudden trouble seeing in one or both eyes, sudden trouble walking, dizziness, loss of balance or coordination, sudden severe headache with no cause. Call 911 or go to the Emergency Room. CONGESTIVE HEART FAILURE: If you have been diagnosed with Congestive Heart Failure (CHF) and your symptoms return, make an appointment with your physician Weigh yourself daily. Notify your physician if you have a weight gain of two or more pounds in one day or five or more pounds in one week. If you experience any difficulty breathing, please call 911 BLEEDING: Although the risk of bleeding is minimal, it can happen. If you have any bleeding from the site, apply firm pressure above the puncture site for 10-15 minutes. If the bleeding does not stop, continue manual pressure and call 911 Contact your physician if: You develop a fever greater than 101 degrees Fahrenheit Your site becomes reddened or has any drainage You have an increase in pain or burning at the site or if a large knot forms at the site. If you experience chest pain, shortness of breath, dizziness, or extreme tiredness, stop the activity and rest. Please notify your physicians office if you experience any of these symptoms and they are not relieved by rest please call 911! Referrals: Tera Mcintosh MD [Primary Care Provider] - 05/25/17 11:30 am Prescriptions: Doxycycline 100 mg PO BID #20 capsule
[2017-05-19] MEDS ORDERED: FLUARIX QUAD 2017-18 36MOS UP/PF 0.5 ML SYRINGE IM ONE (16:25)
--- NOTE | 2017-05-19 16:27 | Electrocardiograph Report ---
[address] [place] [address] Test Date: 2017-05-18 Pat Name: Sera Valero Department: 111 Room: 2N4 Gender: F External Relations Director: ITA : 1945 Requested By: Stephen Rich Order Number: [id number] Reading MD: Huy Talley MD Measurements Intervals [place] Rate: 67 P: 61 WI: 157 QRS: 28 QRSD: 109 T: 177 QT: 426 QTc: 442 Interpretive Statements SINUS RHYTHM LATERAL ISCHEMIA Poor R wave progression Electronically Signed On 05-19-2017 16:26:28 EST by Huy Talley MD
[2017-05-19] MEDS: rOPINIRole 1 MG TABLET PO SCH (20:09)
[2017-05-19] MEDS: *HR* Heparin 5,000 UNIT/ML VIAL SQ SCH (20:10)
[2017-05-20] MEDS: *HR* Heparin 5,000 UNIT/ML VIAL SQ SCH (05:54)
[2017-05-20] MEDS: Gabapentin 100 MG CAPSULE PO SCH (07:59)
[2017-05-20] MEDS: Aspirin 81 MG TAB.CHEW PO SCH (08:00)
[2017-05-20] MEDS: Isosorbide MONOnitrate (24 HR) 60 MG TAB.ER.24H PO SCH (08:00)
[2017-05-20] MEDS ORDERED: Doxycycline 100 MG CAPSULE PO SCH (09:00)
[2017-05-20] MEDS ORDERED: Furosemide 40 MG TABLET PO SCH (09:00)
[2017-05-20 10:40] VITALS: BP 141/39
--- NOTE | 2017-05-20 13:06 | Event Note ---
Date of Encounter: 05/20/17 Time of Encounter: 13:10 - Cardiology Event Note Asked by primary service to reevaluate due to bradycardia. Lopressor dose has been decreased already to 50 mg by mouth twice a day. Average heart rate past 12 hours 53, currently sinus bradycardia in the 50s. Lowest heart rate 44 during nocturnal hours area and patient asymptomatic. Reports has been on BB for at least 20 years. Catheter report reviewed and patient with severe CAD being medically managed. Recommend continue medical therapy. Patient agreeable to monitor heart rate in outpatient setting follow-up in clinic. No further recommendations. Discharge pending per primary service.
--- NOTE | 2017-05-20 13:48 | Event Note ---
<Tenzin Rogers - Last Filed: 05/20/17 13:46> Date of Encounter: 05/20/17 Time of Encounter: 13:46 Pt was discharged yesterday, but stayed overnight for concerns about low HR and elevated BP. She was asymptomatic with the low HR. Lopressor was decreased to 50mg BID and Lisinopril 10mg daily was added for her BP. Cardiology also saw the patient this morning and reassured the patient that her HR was ok. She will follow-up with Cardiology as an out-patient. She is hemodynamically stable and can be discharged home. <Cy Garcia - Last Filed: 05/20/17 16:11> Date of Encounter: 05/20/17 I have seen and examined the patient independently. I have discussed with resident physician Dr. Rogers regarding the management plan. Agree with the documentation.
== END 2017-05-20 16:09 | disposition home or self-care (01) | DRG 281 ==
LOC: 2NENU
PROVIDERS: ADMIT Internal Medicine; ATTEND Internal Medicine

== ENCOUNTER 2017-08-06 12:53 | Inpatient (IN) ==
[2017-08-06] MEDS: *HR* LORazepam 2 MG/ML VIAL IVP PRN ×2 (16:33→20:28)
[2017-08-06] MEDS ORDERED: Ondansetron 4 MG/2 ML VIAL IVP PRN (16:41)
[2017-08-06] MEDS ORDERED: *HR* Heparin 5,000 UNIT/ML VIAL IVP PRN ×2 (16:41)
[2017-08-06] MEDS ORDERED: Naloxone 0.4 MG/ML INJ IVP PRN (16:41)
[2017-08-06] MEDS ORDERED: *HR* OxyCODONE Immed Rel 5 MG TABLET PO PRN (16:41)
--- NOTE | 2017-08-06 16:49 | Internal Med History&Physical ---
Date of Encounter: 08/06/17 Time of Encounter: 16:45 Assessment and Plan (1) Acute respiratory failure with hypoxia and hypercapnia Current visit: Yes Status: Acute Acute hypoxic hypercapnic respiratory failure secondary to acute diastolic CHF exacerbation with bilateral pleural effusions in combination with acute COPD exacerbation probably due to acute tracheitis *Lasix IV, strict I's and O's and daily weight Ordered a CT angio of the chest, may discontinue heparin drip if negative and if troponins are adynamic Solu-Medrol, Levaquin, sputum culture Omeprazole for GI prophylaxis and heparin drip for DVT prophylaxis. The patient will be admitted as inpatient, expected to stay more than 2 midnights. Full code. 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 transplanted heart: [place] heart Associated angina: angina presence unspecified Qualified Code(s): I25.10 - Atherosclerotic heart disease of [place] coronary artery without angina pectoris (6) Tracheitis Current visit: No Status: Acute (7) Congestive heart failure Current visit: No Status: Acute Qualifiers: Congestive heart failure type: diastolic Congestive heart failure chronicity: acute on chronic Qualified Code(s): I50.33 - Acute on chronic diastolic (congestive) heart failure (8) Respiratory acidosis Current visit: No Status: Acute Internal Medicine - H&P: HPI Chief complaint: Shortness of breath Admitted From: Emergency Dept History of present illness: Ms. Valero is a 72 year old female with a past medical history of chronic respiratory failure and tracheostomy, discharged from this hospital in May where she was treated for non-STEMI and underwent a cardiac catheterization showing three-vessel disease, no stents were placed and medical management was advised with Plavix, also history of diabetes type 2 insulin-dependent, neuropathy, COPD oxygen dependent on 3-6 L continuously, came to [facility] complaining of severe difficulty breathing and bringing up yellowish phlegm in large amounts from her tracheostomy. Initial pH on the ABG was 7.16 PCO2 was 89 PCO2 was 61. Troponin was 0.06 but she is denying any chest pain, BNP is 813 , d-dimer was 1725, no CT angiogram chest has been performed but the patient was started on heparin. Chest x-ray shows acute CHF changes with bilateral pleural effusions and bilateral lower atelectases. Blood cell count is 13.9. The patient desaturated down to the 80s even on 6 L. Heart rate was 117 and blood pressure 190/78. She is a still insists respiratory distress but the ABG has improved with a pH of 7.39 PCO2 of 51 and a PO2 of 72. Complains of a severe headache Past Med Surg Social Fam HX - Past Medical History Medical history: CHF (Diastolic), coronary artery disease (Three-vessel CAD), diabetes (Insulin-dependent), hyperlipidemia, hypertension, other (Chronic respiratory failure using a tracheostomy, COPD using 3-6 L continuously, restless leg syndrome, neuropathy, dementia, tracheitis) Psychiatric history: anxiety - Past Surgical History Surgical History: angioplasty/stent, cholecystectomy, coronary bypass (CABG), hysterectomy, orthopedic, other, other (Echocardiogram from May 2017 shows an ejection fraction of 50-55% with moderate diastolic dysfunction) - Social History Smoking Status: Former smoker Smokeless Tobacco Status: No Alcohol use: rarely Drug use: none - Family History Mother Hx Family Cardiac Disorders: Yes ([place]) - Additional Family History Additional family history: Mother with myocardial infarction Internal Medicine - H&P: Meds Atorvastatin [Lipitor] 40 mg PO HS 03/22/16 [History] Clopidogrel [Plavix] 75 mg PO DAILY 03/22/16 [History] Isosorbide MONOnitrate (24 HR) [Imdur] 60 mg PO BID 03/22/16 [History] Metoprolol [Lopressor] 100 mg PO HS 03/22/16 [History] Guaifenesin [Mucinex] 600 mg PO BID PRN #60 tab.er.[id number] 05/20/17 [Rx] Lisinopril [Zestril] 10 mg PO DAILY #30 tablet 05/20/17 [Rx] Gabapentin [Neurontin] 100 mg PO TID 08/06/17 [History] HydrOXYzine 10 mg PO HS 08/06/17 [History] Metoprolol Tartrate [Lopressor] 50 mg PO DAILY 08/06/17 [History] Subcutaneous Insulin Pump [T:Slim] 1 each MC DAILY 08/06/17 [History] rOPINIRole [Requip] 3 mg PO HS 08/06/17 [History] 3 Allergy/AdvReac Type Severity Reaction Status Date / Time cephalexin [From Keflex] Allergy Rash Verified 08/09/16 12:19 latex Allergy Rash Verified 08/09/16 12:19 morphine Allergy Confusion Verified 08/09/16 12:19 ibuprofen AdvReac Confusion Verified 08/09/16 12:19 metal Allergy Rash Uncoded 03/22/16 15:13 All Systems PM: A 10-system review of systems was performed and is negative for pertinent findings except as documented above in the HPI. Review of systems: No chest pain, no abdominal pain, no dysuria. Other systems out of the 10 reviewed were negative - Constitutional Vitals: Temp Pulse Resp BP Pulse Ox 97.8 F 138 24 204/127 92 08/06/17 16:19 08/06/17 16:19 08/06/17 16:19 08/06/17 16:19 08/06/17 16:19 General appearance: Present: A&O X 3 - Head Head exam: Present: atraumatic, normocephalic - Eye Eye exam: Present: PERRL, conjuntiva pink, sclera anicteric Pupils: Present: PERRL - Neck Neck exam general surgery: Present: supple, trachea midline. Absent: lymphadenopathy Additional comments: Tracheostomy in place - Respiratory Respiratory exam: Present: CTAB, rales, wheezes (Diffuse crackles or wheezing). Absent: accessory muscle use, rhonchi - Cardiovascular Cardiovascular exam: Present: RRR, +S1, +S2. Absent: diastolic murmur, gallop, rubs, systolic murmur - GI/Abdominal GI/Abdominal exam: Present: normal bowel sounds, soft, no peritoneal signs. Absent: distended, tenderness - Extremities Exam Extremities exam: Present: pedal edema (+1 pitting edema in both lower extremities), warm, radial pulses palpable and symmetrical. Absent: calf tenderness, cyanotic - Neurological Exam Neurological exam: Present: CN II-XII intact, oriented X3, no focal deficits. Absent: pronater drift, facial droop, speech deficit - Skin Skin exam: Present: dry, intact
[2017-08-06] MEDS ORDERED: D5% in Water 1,000 ML IVC PRN (16:55)
[2017-08-06] MEDS ORDERED: Dextrose Gel 15 GM/37.5 ML TUBE PO PRN ×2 (16:55)
[2017-08-06] MEDS ORDERED: *HR* Dextrose 50 % in Water (Syg) 50 ML SYRINGE IVP PRN (16:55)
[2017-08-06 17:10] LABS: Hematocrit 37.7 % (35.3-44.9); Hemoglobin 11.8 g/dL (11.5-15.4); Mean Corpuscular HGB Conc 31.3 g/dL (31.6-35.5); Mean Corpuscular Hemoglobin 30.2 pg (28.0-33.3); Mean Corpuscular Volume 96.4 fL (83.0-100.0); Mean Platelet Volume 11.4 fL (9.4-12.4); Platelet Count 199 K/mcL (140-400); Red Blood Count 3.91 M/mcL (3.82-4.97); Red Cell Distribution Width 13.2 % (11.5-14.5)
[2017-08-06] MEDS: Furosemide 20 MG/2 ML VIAL IVP SCH (17:11)
[2017-08-06 17:15] LABS: INR 1.2; Prothrombin Time 13.1 Seconds (9.4-12.1)
[2017-08-06 17:18] LABS: Activated Partial Thrombo Time 95.9 Seconds (26.0-36.0)
[2017-08-06] MEDS: Heparin 25,000 UNIT/500 ML D5W 25,000 UNIT/500 ML BAG IVC SCH (17:21)
[2017-08-06] MEDS: Metoprolol 100 MG TABLET PO SCH (20:28)
[2017-08-06] MEDS: Isosorbide MONOnitrate (24 HR) 60 MG TAB.ER.24H PO SCH (20:28)
[2017-08-06] MEDS: Gabapentin 100 MG CAPSULE PO SCH (20:29)
[2017-08-06] MEDS: Insulin LISPRO 300 UNITS/3 ML VIAL SQ SCH (20:35)
[2017-08-06] MEDS: Ipratropium/Albuterol Neb 3 ML IH SCH ×2 (21:56→22:38)
[2017-08-06] MEDS: Aspirin Enteric Coated 325 MG Tablet PO SCH (22:55)
[2017-08-07] MEDS: Nitroglycerin 1 INCH/GM PACKET TP SCH ×3 (00:03→11:53)
[2017-08-07] MEDS: Ipratropium/Albuterol Neb 3 ML IH SCH ×4 (04:01→22:32)
[2017-08-07 04:39] LABS: Hematocrit 34.6 % (35.3-44.9); Hemoglobin 10.8 g/dL (11.5-15.4); Mean Corpuscular HGB Conc 31.2 g/dL (31.6-35.5); Mean Corpuscular Hemoglobin 29.9 pg (28.0-33.3); Mean Corpuscular Volume 95.8 fL (83.0-100.0); Mean Platelet Volume 11.8 fL (9.4-12.4); Platelet Count 169 K/mcL (140-400); Red Blood Count 3.61 M/mcL (3.82-4.97); Red Cell Distribution Width 12.9 % (11.5-14.5)
--- NOTE | 2017-08-07 07:38 | Internal Med Progress Note ---
Date of Encounter: 08/07/17 Time of Encounter: 07:38 - Subjective Interval history: Ms. Valero is a 72 year old female admitted overnight with acute on chronic respiratory failure secondary to an exacerbation of her known DHF. She has a h/ o chronic respiratory failure and tracheostomy following a CABG approximately 20 yrs ago. She has severe tripple vessel CAD ad had a NSTEMI in May but was not a candidate for intervention due her multiple comorbid conditions. Medical mgt was persued at that time. Overnight her troponins increased from 0.06 to over 21.75 and his having an acute MA. Cardiology has already seen the patient. She takes Plavix and Aspirin and a Hwparin drip was started this am. aher other comorbid conditions incluse diabetes type 2 insulin-dependent, neuropathy, COPD oxygen dependent on 3-6 L continuously. She was having severe difficulty breathing and bringing up yellowish phlegm in large amounts from her tracheostomy . Initial pH on the ABG was 7.16 PCO2 was 89 PCO2 was 61. Her D- dimer is [address] angiogram chest was ordered overnight and still pending. She was started on heparin. Chest x-ray shows acute CHF changes with bilateral pleural effusions and bilateral lower atelectases. Her repeat ABG has improved with a pH of 7.39 PCO2 of 51 and a PO2 of 72. Assessment and Plan Acute on chronic respiratory failure with hypoxia and hypercapnia Current visit: Yes Status: Acute Acute hypoxic hypercapnic respiratory failure secondary to acute diastolic CHF exacerbation associated with acute MA Lasix IV, strict I's and O's CT angio of the chest is pending Solu-Medrol can likely be d/c as this does not represent a COPD exacerbation. Acute MA: Awaiting recommendations from cardiology. Appreciate consult. Likely medical mgt only as this was the plan in May when she had [facility] showing tripple vessel dz and treated with med mgt only. Pleural effusion lasix as noted above Diabetes mellitus Current visit: No Status: Acute insulin sliding scale Tracheitis Continue Levaquin - Constitutional Vitals: Temp Pulse Resp BP Pulse Ox 97.7 F 67 17 135/59 94 08/07/17 03:20 08/07/17 03:20 08/07/17 04:01 08/07/17 04:01 08/07/17 04:01 General appearance: Present: cooperative, mild distress, A&O X 3, answers questions appropriately - Head Head exam: Present: atraumatic, normocephalic - Eye Eye exam: Present: EOMI, PERRL, conjuntiva pink, sclera anicteric Pupils: Present: PERRL - Neck Neck exam general surgery: Present: supple, trachea midline. Absent: lymphadenopathy - Respiratory Respiratory exam: Present: rales, rhonchi. Absent: accessory muscle use, stridor, wheezes - Cardiovascular Cardiovascular exam: Present: RRR, +S1, +S2. Absent: diastolic murmur, gallop, rubs, systolic murmur - GI/Abdominal GI/Abdominal exam: Present: normal bowel sounds, soft, no peritoneal signs. Absent: distended, tenderness - Extremities Exam Extremities exam: Present: pedal edema, warm, radial pulses palpable and symmetrical. Absent: calf tenderness, cyanotic, normal inspection, mottling - Neurological Exam Neurological exam: Present: CN II-XII intact, oriented X3, no focal deficits. Absent: pronater drift, facial droop, speech deficit - Skin Skin exam: Present: diaphoretic, intact, warm Internal Medicine: Result - Labs CBC & Chem 7: 08/07/17 04:18 08/07/17 04:18 Labs: Short CBC 08/06/17 08/07/17 Range/Units 16:57 04:18 WBC 11.0 14.7 H (4.3-11.1) K/mcL Hgb 11.8 10.8 L (11.5-15.4) g/dL Hct 37.7 34.6 L (35.3-44.9) % Plt Count 199 169 (140-400) K/mcL Cardiac Enzymes 08/06/17 08/06/17 08/07/17 Range/Units 16:57 21:54 04:18 Troponin I 4.04 H* 12.45 H* 21.75 H* (< 0.04) ng/mL - ABG Interpretation ABG results: PT/INR, D-dimer PT 13.1 Seconds (9.4-12.1) H 08/06/17 16:57 Consult Discharge Plan - Plan Referrals: Tera Mcintosh MD [Primary Care Provider] -
[2017-08-07] MEDS: Insulin LISPRO 300 UNITS/3 ML VIAL SQ SCH ×5 (07:59→22:25)
[2017-08-07] MEDS: Aspirin Enteric Coated 325 MG Tablet PO SCH (08:14)
[2017-08-07] MEDS: Furosemide 20 MG/2 ML VIAL IVP SCH ×3 (08:14→17:12)
[2017-08-07] MEDS: Isosorbide MONOnitrate (24 HR) 60 MG TAB.ER.24H PO SCH ×2 (08:14→21:35)
[2017-08-07] MEDS: Gabapentin 100 MG CAPSULE PO SCH ×3 (08:14→21:35)
--- NOTE | 2017-08-07 09:18 | Cardiology Consult Note ---
Date of Encounter: 08/07/17 Time of Encounter: 09:15 Assessment and Plan (1) NSTEMI (non-ST elevated myocardial infarction) Current Visit: No Status: Acute Troponins 0.06, 4.04, 12.45, 21.75. EKG reviewed-- more pronounced/deeper T wave inversions in anterolateral leads. Pt is on heparin gtt. Denies chest pain. Of note, pt had NSTEMI with peak troponin of 21.74 05/18/17. She underwent LHC at that time showing severe 3 vessel CAD, no intervention and medical management was recommended. Echo 05/2017 EF was preserved. Recheck echo. Ddimer 1725. Obtain chest CTA to rule out PE. Continue heparin gtt, ASA, Plavix, Statin, BB, ACEi. Await echo and CTA results for further recommendations. Pending results, may need to discuss repeat ischemic eval/LHC. Pt currently unable to lay flat. Will discuss all the above with Dr. Ray as well. (2) CAD (coronary artery disease) Current Visit: No Status: Acute Prior CABG and PCI. As above, LHC 05/2017 severe 3 vessel disease without intervention, medical management was recommended. ASA, Plavix, Statin, BB, ACEi. Qualifiers: Coronary Disease-Associated Artery/Lesion type: unspecified vessel or lesion type [place] vs. transplanted heart: [place] heart Associated angina: angina presence unspecified Qualified Code(s): I25.10 - Atherosclerotic heart disease of [place] coronary artery without angina pectoris Discussion w patient/family: The assessment and plan as outlined above was discussed with the patient and/or family members who expressed understanding and agreement. All questions were answered. Thank you for involving us in the care of your patient. Please call with any questions. I will discuss all the above with Dr. Ray and make changes as necessary. History of Present Illness Consult date: 08/07/17 Requesting physician: Wilmer Freeman Consult reason: NSTEMI Chief complaint: dyspnea History of present illness: Ms. Valero is a 72 year old female with PMH of tracheal stenosis s/p tracheostomy , CAD, prior PCI, prior CABG, DM type II, HLD, essential HTN, and MATT. Of note, Pt had NSTEMI with peak troponin of 21.74 05/18/17. She underwent LHC at that time showing severe 3 vessel CAD, no intervention and medical management was recommended. Pt presented to [facility] complaining of severe difficulty breathing and bringing up yellowish phlegm in large amounts from her tracheostomy. Symptoms started 2 days ago, reports orthopnea and increase in LE edema. She denies chest pain. Initial pH on ABG was 7.16 PCO2 was 89 PCO2 was 61. BNP 813 , d-dimer was 1725. CTA has not been done. CXR shows acute CHF changes with bilateral pleural effusions and bilateral lower atelectases. Troponins this admission 0.06, 4.04, 12.45, 21.75. Cardiology consulted for further recommendations. Prior CV testing: [facility] 08/2008: EF 50%. Inferobasal hypokinesis. Left main normal. LAD proximal 40% stenosis, diffuse 30% stenosis. D1 90% stenosis (small vessel). Ramus ostial 90 % stenosis (small vessel). Circumflex mid 35% stenosis, proximal 95% stenosis ( stent placed). OM1 90% stenosis. RCA proximal 100% stenosis. Collaterals to RPDA territory. Carotid duplex 05/2011: Tortuous vessels bilaterally. No significant stenosis bilaterally. Pharmacological nuclear stress test 06/2011: Scarring of basal inferior segment , mild leatha-infarct ischemia. Reversible ischemia involving the anterior and posterior lateral and anteroapical segments. [facility] 07/2011: Three-vessel CAD, chronic occlusion of RCA and SVG to RPDA. Progression of disease in the mid RCA and RCA marginal branch 2 small for PCI. Stable LAD disease and proximal circumflex stent. Successful PCI to high-grade OM 3, which supplies collateral to an occluded RCA. Echo 09/02/16: LVEF 60-65%, mild concentric LVH, moderate LVDD. Echo 05/19/17: LVEF 50-55%, mild cLVH, moderate diastolic dysfunction, mild DC. C 05/18/17: Severe 3 vessel CAD. No intervention, medical management. 40% mLAD , 90% 3rd marginal (very small vessel), 100% pRCA lesion, SVG-RPDA occluded. Past Med Surg Social Fam HX - Past Medical History Medical history: CHF (Diastolic), coronary artery disease (Three-vessel CAD), diabetes (Insulin-dependent), hyperlipidemia, hypertension, other (Chronic respiratory failure using a tracheostomy, COPD using 3-6 L continuously, restless leg syndrome, neuropathy, dementia, tracheitis) Psychiatric history: anxiety - Past Surgical History Surgical History: angioplasty/stent, cholecystectomy, coronary bypass (CABG), hysterectomy, orthopedic, other, other (Echocardiogram from May 2017 shows an ejection fraction of 50-55% with moderate diastolic dysfunction) - Social History Smoking Status: Former smoker Smokeless Tobacco Status: No Alcohol use: rarely Drug use: none - Family History Mother Hx Family Cardiac Disorders: Yes ([place]) Medications and Allergies Atorvastatin [Lipitor] 40 mg PO HS 03/22/16 [History] Clopidogrel [Plavix] 75 mg PO DAILY 03/22/16 [History] Isosorbide MONOnitrate (24 HR) [Imdur] 60 mg PO BID 03/22/16 [History] Metoprolol [Lopressor] 100 mg PO HS 03/22/16 [History] Guaifenesin [Mucinex] 600 mg PO BID PRN #60 tab.er.12h 05/20/17 [Rx] Lisinopril [Zestril] 10 mg PO DAILY #30 tablet 05/20/17 [Rx] Gabapentin [Neurontin] 100 mg PO TID 08/06/17 [History] HydrOXYzine 10 mg PO HS 08/06/17 [History] Metoprolol Tartrate [Lopressor] 50 mg PO DAILY 08/06/17 [History] Subcutaneous Insulin Pump [T:Slim] 1 each MC DAILY 08/06/17 [History] rOPINIRole [Requip] 3 mg PO HS 08/06/17 [History] 3 Allergy/AdvReac Type Severity Reaction Status Date / Time cephalexin [From Keflex] Allergy Rash Verified 08/09/16 12:19 latex Allergy Rash Verified 08/09/16 12:19 morphine Allergy Confusion Verified 08/09/16 12:19 ibuprofen AdvReac Confusion Verified 08/09/16 12:19 metal Allergy Rash Uncoded 03/22/16 15:13 All Systems Review: A 10-system review of systems was performed and is negative for pertinent findings except as documented above in the HPI. - Cardiovascular Cardiovascular: as per HPI, dyspnea at rest, dyspnea on exertion, leg edema, orthopnea - Respiratory Respiratory: cough, dyspnea, wheezing Physical Examination Vital Signs, Last 4 Hours Temp Pulse Resp BP Pulse Ox 08/07/17 08:14 97.5 F L 73 20 151/60 97 Vital Signs Temp Pulse Resp BP Pulse Ox 08/07/17 08:14 97.5 F L 73 20 151/60 97 08/07/17 04:01 17 135/59 94 08/07/17 03:20 97.7 F 67 20 135/59 94 08/06/17 22:58 97.5 F L 75 22 153/72 93 08/06/17 22:20 142/71 08/06/17 21:56 22 93 08/06/17 20:14 98 F 109 26 197/82 95 08/06/17 16:19 97.8 F 138 24 204/127 92 08/06/17 15:44 94 08/06/17 15:16 93 08/06/17 15:11 97.8 F 93 173/79 97 Intake and Output 08/06/17 08/07/17 08/07/17 23:59 07:59 15:59 Intake Total 125 / 125 243 / 243 Output Total 925 / 925 Balance -800 / -800 243 / 243 Intake: IV Fluids 125 / 125 243 / 243 Heparin 25,000 UNIT/500 ML D5W 125 / 125 243 / 243 25,000 unit In 500 ml @ 14 UNIT /KG/HR 25.368 mls/hr IVC . [id number] [facility] Rx#:[id number] Output: Catheter 925 / 925 Other: Meal Dinner Percent of Meal Consumed 30% Weight 90.2 kg Blood Glucose* 291 196 Patient Weight 08/07/17 23:59 Weight 90.2 kg General: Conversant HEENT: Atraumatic, Normocephaly, Mucus Membranes Moist Neck: Normal carotid pulses Cardiac: Reg Rate and Rhythm, Normal S1 and S2, No Murmur Lungs: Other (rhonchi, wheezes) Neuro: Alert and responsive, No focal deficits noted Abdomen: Soft, Non-Tender Skin: No rashes noted on visualized skin Musculoskeletal: No Chest Wall Tenderness Extremities: No Clubbing, No Cyanosis, No Edema, Normal Pulses Results 08/07/17 04:18 08/07/17 04:18 Lab Results 08/06/17 08/06/17 08/06/17 16:25 16:57 16:57 WBC 11.0 RBC 3.91 Hgb 11.8 Hct 37.7 MCV 96.4 MCH 30.2 MCHC 31.3 L RDW 13.2 Plt Count 199 MPV 11.4 PT INR APTT POC Glucose 266 H Troponin I 4.04 H* 08/06/17 08/06/17 08/06/17 16:57 20:19 21:54 WBC RBC Hgb Hct MCV MCH MCHC RDW Plt Count MPV PT 13.1 H INR 1.2 APTT 95.9 H D POC Glucose 291 H Troponin I 12.45 H* 08/06/17 08/07/17 08/07/17 21:54 04:18 04:18 WBC 14.7 H RBC 3.61 L Hgb 10.8 L Hct 34.6 L MCV 95.8 MCH 29.9 MCHC 31.2 L RDW 12.9 Plt Count 169 MPV 11.8 PT INR APTT 106.4 H POC Glucose Troponin I 21.75 H* 08/07/17 08/07/17 04:18 07:49 WBC RBC Hgb Hct MCV MCH MCHC RDW Plt Count MPV PT INR APTT 56.2 H POC Glucose 196 H Troponin I Short CBC 08/07/17 08/06/17 Range/Units 04:18 16:57 WBC 14.7 H 11.0 (4.3-11.1) K/mcL Hgb 10.8 L 11.8 (11.5-15.4) g/dL Hct 34.6 L 37.7 (35.3-44.9) % Plt Count 169 199 (140-400) K/mcL Cardiac Enzymes 08/07/17 08/06/17 08/06/17 Range/Units 04:18 21:54 16:57 Troponin I 21.75 H* 12.45 H* 4.04 H* (< 0.04) ng/mL Active Medications Albuterol/Ipratropium (Duoneb) 3 ml IH [id number] [facility] PRN Reason: Protocol Stop: 02/05/18 16:46 Last Admin: 08/07/17 04:01 Dose: 3 ml Aspirin (Aspirin Ec) 325 mg PO DAILY [facility] Stop: 02/05/18 20:46 Last Admin: 08/07/17 08:14 Dose: 325 mg Atorvastatin Calcium (Lipitor) 40 mg PO HS [facility] Stop: 02/05/18 21:01 Last Admin: 08/06/17 20:29 Dose: 40 mg Clopidogrel Bisulfate (Plavix) 75 mg PO DAILY [facility] Stop: 02/06/18 09:01 Last Admin: 08/07/17 08:14 Dose: 75 mg Dextrose/Water (Dextrose 50% (Syg)) 25 ml IVP AD PRN PRN Reason: Hypoglycemia Stop: 02/05/18 16:56 Furosemide (Lasix) 20 mg IVP TIDDIURETIC [facility] Stop: 02/05/18 16:46 Last Admin: 08/07/17 08:14 Dose: 20 mg Gabapentin (Neurontin) 100 mg PO TID [facility] Stop: 02/05/18 21:01 Last Admin: 08/07/17 08:14 Dose: 100 mg Glucagon (Glucagen) 1 mg IM ONCE PRN PRN Reason: Hypoglycemia Stop: 02/05/18 16:56 Glucose (Gluctose) 15 gm PO ONCE PRN PRN Reason: Hypoglycemia Stop: 02/05/18 16:56 Glucose (Gluctose) 30 gm PO ONCE PRN PRN Reason: Hypoglycemia Stop: 02/05/18 16:56 Heparin Sodium (Porcine) (Heparin) 6,300 unit 70 unit/kg (6300 unit) IVP Q6HR PRN PRN Reason: SEE COMMENTS Stop: 02/05/18 16:42 Heparin Sodium (Porcine) (Heparin) 3,200 unit 35 unit/kg (3200 unit) IVP Q6H PRN PRN Reason: SEE COMMENTS Stop: 02/05/18 16:42 Last Admin: 08/07/17 05:02 Dose: 3,200 unit Hydroxyzine HCl (Hydroxyzine) 10 mg PO HS [facility] Stop: 02/05/18 21:01 Last Admin: 08/06/17 20:28 Dose: 10 mg Levofloxacin/Dextrose (Levaquin Premix 750mg/150 Ml) 750 mg in 150 mls @ 100 mls/hr IVPB Q48H [facility] PRN Reason: Protocol Stop: 02/07/18 11:01 Heparin Sodium/Dextrose (Heparin 25,000 Unit/500 Ml D5w) 25,000 unit in 500 mls @ 25.368 mls/hr IVC .[id number] [facility]; 14 UNIT/KG/HR PRN Reason: Protocol Stop: 02/05/18 16:46 Last Titration: 08/07/17 04:57 Dose: 14 unit/kg/hr, 25.368 mls/hr Dextrose (Dextrose 5%) 1,000 mls @ 100 mls/hr IVC .Q10H PRN PRN Reason: HYPOGLYCEMIA Stop: 02/05/18 16:56 Insulin Human Lispro (Humalog) 0 units SQ TIDAC [facility] PRN Reason: Protocol Stop: 02/06/18 07:31 Last Admin: 08/07/17 07:59 Dose: Not Given Insulin Human Lispro (Humalog) 0 units SQ HS [facility] PRN Reason: Protocol Stop: 02/05/18 21:01 Last Admin: 08/06/17 20:35 Dose: Not Given Isosorbide Mononitrate (Imdur) 60 mg PO BID [facility] Stop: 02/05/18 21:01 Last Admin: 08/07/17 08:14 Dose: 60 mg Lisinopril (Zestril) 10 mg PO DAILY [facility] PRN Reason: Protocol Stop: 02/05/18 16:46 Last Admin: 08/07/17 08:14 Dose: 10 mg Lorazepam (Ativan) 0.5 mg IVP Q4HR PRN PRN Reason: Anxiety Stop: 02/05/18 20:01 Last Admin: 08/06/17 20:28 Dose: 0.5 mg Methylprednisolone (Solu-Medrol) 40 mg IVP Q8HR [facility] Stop: 02/06/18 16:41 Metoprolol Tartrate (Lopressor) 100 mg PO [facility] Stop: 02/05/18 21:01 Last Admin: 08/06/17 20:28 Dose: 100 mg Metoprolol Tartrate (Lopressor) 50 mg PO DAILY [facility] Stop: 02/06/18 09:01 Last Admin: 08/07/17 08:14 Dose: 50 mg Naloxone HCl (Narcan) 0.4 mg IVP Q2MIN PRN PRN Reason: Opioid Reversal Stop: 02/05/18 16:42 Nitroglycerin (Nitroglycerin) 0.5 inch TP Q6HNTG [facility] Stop: 02/05/18 23:01 Last Admin: 08/07/17 06:28 Dose: 0.5 inch Omeprazole (Prilosec) 40 mg PO DAILY@0630 [facility] PRN Reason: Protocol Stop: 02/06/18 06:31 Last Admin: 08/07/17 06:28 Dose: 40 mg Ondansetron HCl (Zofran) 4 mg IVP Q8HR PRN PRN Reason: Nausea And Vomiting Stop: 02/05/18 16:42 Oxycodone HCl (Roxicodone) 5 mg PO Q6HR PRN PRN Reason: Moderate Pain (4-6) Stop: 02/05/18 16:42 Ropinirole HCl (Requip) 3 mg PO HS [facility] Stop: 02/05/18 21:01 Last Admin: 08/06/17 20:29 Dose: 3 mg - Imaging and Cardiology Echo: report reviewed Cardiac cath: report reviewed - EKG Interpretation EKG results cardiology: personally reviewed (SR, anterolateral and inferior ischemia), other (12 hr tele AVG HR 74, SR.) Consult Discharge Plan - Plan Referrals: Obed Sterling MD [Partnered Physician] - 08/10/17 2:30 pm Roselia Andrews CNP [Advanced Practice Nurse] - 08/14/17 9:00 am Tera Mcintosh MD [Primary Care Provider] -
[2017-08-07 09:37] LABS: BUN/Creatinine Ratio 27 (6-26); Blood Urea Nitrogen 28 mg/dL (8-23); Carbon Dioxide 16 mEq/L (23-29); Chloride 105 mEq/L (98-107); Glucose 211 mg/dL (70-105); Osmolality,Calculated 300 (280-300); Potassium 4.7 mEq/L (3.5-5.1); Sodium 139 mEq/L (136-145); eGFR For African Americans > 60 (> 60); eGFR For Non-African Americans 52 (> 60)
[2017-08-07] MEDS: Heparin 25,000 UNIT/500 ML D5W 25,000 UNIT/500 ML BAG IVC SCH (15:22)
[2017-08-07] MEDS: MethylPREDNISolone 40 MG/ML VIAL IVP SCH (17:12)
[2017-08-07] MEDS: Metoprolol 100 MG TABLET PO SCH (21:35)
[2017-08-07] MEDS: *HR* LORazepam 2 MG/ML VIAL IVP PRN (22:22)
[2017-08-08] MEDS: MethylPREDNISolone 40 MG/ML VIAL IVP SCH ×2 (00:34→08:07)
[2017-08-08 01:16] LABS: Activated Partial Thrombo Time 143.7 Seconds (26.0-36.0)
[2017-08-08 01:24] LABS: Heparin anti-factor XA UFH 0.83 IU/mL (0.30-0.70)
[2017-08-08 04:05] LABS: Basophils % 0.1 %; Hematocrit 31.6 % (35.3-44.9); Hemoglobin 10.1 g/dL (11.5-15.4); Immature Granulocytes % 0.6 % (0-4); Lymphocytes # 0.7 K/mcL (0.6-4.6); Lymphocytes % 4.9 %; Mean Corpuscular Hemoglobin 30.4 pg (28.0-33.3); Mean Corpuscular Volume 95.2 fL (83.0-100.0); Mean Platelet Volume 11.7 fL (9.4-12.4); Monocytes # 0.4 K/mcL (0.0-1.3); Monocytes % 2.5 %; Platelet Count 190 K/mcL (140-400); Red Blood Count 3.32 M/mcL (3.82-4.97); Red Cell Distribution Width 13.2 % (11.5-14.5); Segmented Neutrophils % 91.9 %
[2017-08-08 04:33] LABS: Calcium 8.7 mg/dL (8.6-10.3); Potassium 4.4 mEq/L (3.5-5.1)
[2017-08-08] MEDS: Ipratropium/Albuterol Neb 3 ML IH SCH ×4 (05:14→21:41)
[2017-08-08] MEDS: Nitroglycerin 1 INCH/GM PACKET TP SCH (06:24)
[2017-08-08] MEDS: Isosorbide MONOnitrate (24 HR) 60 MG TAB.ER.24H PO SCH ×2 (08:07→20:59)
[2017-08-08] MEDS: Furosemide 20 MG/2 ML VIAL IVP SCH ×2 (08:07→12:00)
[2017-08-08] MEDS: Gabapentin 100 MG CAPSULE PO SCH ×2 (08:07→20:59)
[2017-08-08] MEDS: Aspirin Enteric Coated 325 MG Tablet PO SCH (08:07)
[2017-08-08] MEDS: Insulin LISPRO 300 UNITS/3 ML VIAL SQ SCH ×4 (08:09→21:25)
[2017-08-08] MEDS ORDERED: Levofloxacin 750 MG/150 ML 750 MG/150 ML BAG IVPB SCH (11:00)
--- NOTE | 2017-08-08 12:25 | Cardiology Progress Note ---
Date of Encounter: 08/08/17 Time of Encounter: 12:18 Assessment and Plan (1) NSTEMI (non-ST elevated myocardial infarction) Current Visit: No Status: Acute Troponins 0.06, 4.04, 12.45, 21.75. EKG reviewed-- continues to worsen with more pronounced/deeper T wave inversions in anterolateral leads. Pt is on heparin gtt. Denies chest pain. Of note, pt had NSTEMI with peak troponin of 21.74 05/18/17. She underwent LHC at that time showing severe 3 vessel CAD, no intervention and medical management was recommended. Echo 05/2017 EF was preserved. Repeat echo during this stay LVEF mildly reduced 45-50%. Low normal to mild global LV systolic dysfunction. There are no new regional variations when compared to prior echo, 05/19/2017. Severe diastolic dysfunction with restrictive physiology. Normal right ventricular structure and function. Mild MR and TR. Mild pulmonary hypertension. Continue heparin gtt, ASA, Plavix, Statin, BB, ACEi. Recommend repeat ischemic evaluation with LHC given her significant troponin elevation and EKG changes. R/B/A discussed. Pt is considering, but only wants Dr. Escamilla as interventionalist. Dr. Escamilla is in [employer] laborer tomorrow. NPO after midnight tonight for possible LHC tomorrow pending renal function and pt's decision. (2) CAD (coronary artery disease) Current Visit: No Status: Acute Prior CABG and PCI. As above, LHC 05/2017 severe 3 vessel disease without intervention, medical management was recommended. ASA, Plavix, Statin, BB, ACEi. Hold ACEi given mild increase in creatinine, currently being diuresed, and potential LHC. Qualifiers: Coronary Disease-Associated Artery/Lesion type: unspecified vessel or lesion type [place] vs. transplanted heart: [place] heart Associated angina: angina presence unspecified Qualified Code(s): I25.10 - Atherosclerotic heart disease of [place] coronary artery without angina pectoris (3) Acute CHF Current Visit: Yes Status: Acute Echo EF 45-50%, mild global systolic dysfunction. Severe diastolic dysfunction with restrictive physiology. Currently on Lasix 20mg IV TID. Cumulative net negative -4612mL during stay. Yesterday negative -2761mL. Respiratory status has improved with diuresis. Creatinine mildly worsened from 1.04 to 1.21 likely due to combination of diuresis and contrast from CTA. Will decrease IV Lasix to 20mg BID. Recommend strict I/Os, Na and fluid restriction, daily weights. Will need maintenance PO Lasix at discharge. Qualifiers: Congestive heart failure type: combined Qualified Code(s): I50.41 - Acute combined systolic (congestive) and diastolic (congestive) heart failure (4) Long QT interval Current Visit: Yes Status: Acute QT/QTc interval continues to increase. EKG 08/06 showed QT/QTc of 456/483ms. EKG today 08/08/17 QT/QTc 620/606ms. Pt is on Levaquin. Discussed with hospitalist, will switch to a different antibiotic that is not QT prolonging. Will stop PRN Zofran. Will also consult with pharmacist to go through her other medications that may be QT prolonging. Continue to monitor. Discussion w patient/family: The assessment and plan as outlined above was discussed with the patient and/or family members who expressed understanding and agreement. All questions were answered. Thank you for involving us in the care of your patient. Please call with any questions. I will discuss all the above with Dr. Ray and make changes as necessary. Subjective Principal diagnosis: NSTEMI Interval history: Pt reports dyspnea has improved. Denies chest pain. Echo resulted. EF previously 50-55%, now LVEF 45-50%. Low normal to mild global LV systolic dysfunction. There are no new regional variations when compared to prior echo, 05/19/2017. Severe diastolic dysfunction with restrictive physiology. Normal right ventricular structure and function. Mild mitral regurgitation. Mild tricuspid regurgitation. Mild pulmonary hypertension. Mild pulmonic regurgitation. EKG repeated with worsening ST changes. Objective Vital Signs, Last 4 Hours Temp Pulse Resp BP Pulse Ox 08/08/17 11:40 97.9 F 59 18 155/65 97 08/08/17 11:08 16 98 Vital Signs Temp Pulse Resp BP Pulse Ox 08/08/17 11:40 97.9 F 59 18 155/65 97 08/08/17 11:08 16 98 08/08/17 07:50 97.1 F L 73 16 157/59 97 08/08/17 05:16 18 100 08/08/17 04:00 97.7 F 63 18 148/72 100 08/08/17 00:36 98.0 F 55 16 151/58 96 08/07/17 19:12 98.3 F 70 19 133/54 98 08/07/17 16:19 98.2 F 79 18 143/65 99 08/07/17 16:14 18 99 Intake and Output 08/07/17 08/08/17 08/08/17 23:59 07:59 15:59 Intake Total 304 / 304 199 / 199 Output Total 900 / 900 550 / 550 700 / 700 Balance -596 / -596 -351 / -351 -700 / -700 Intake: IV Fluids 199 / 199 Heparin 25,000 UNIT/500 ML D5W 64 199 / 199 25,000 unit In 500 ml @ 14 UNIT /KG/HR 25.368 mls/hr IVC . [id number] [facility] Rx#:[id number] Oral 240 / 240 Output: Catheter 900 / 900 550 / 550 700 / 700 Urethral ([place]) 550 / 550 Other: Meal Dinner Percent of Meal Consumed 100% Weight 87.6 kg Blood Glucose* 306 264 234 Patient Weight 08/08/17 23:59 Weight 87.6 kg General: Conversant, No Apparent Distress HEENT: Atraumatic, Normocephaly, Mucus Membranes Moist Neck: Normal carotid pulses Cardiac: Reg Rate and Rhythm, Normal S1 and S2, No Murmur Lungs: Other (diminished) Neuro: Alert and responsive, No focal deficits noted Abdomen: Soft, Non-Tender Skin: No rashes noted on visualized skin Musculoskeletal: No Chest Wall Tenderness Extremities: No Clubbing, No Cyanosis, No Edema, Normal Pulses Results 08/08/17 03:55 08/08/17 03:55 Lab Results 08/07/17 08/08/17 08/08/17 17:15 00:30 03:55 WBC 14.2 H Hgb 10.1 L Hct 31.6 L Plt Count 190 APTT 99.4 H 143.7 H* Sodium Potassium Chloride Carbon Dioxide BUN Creatinine Glucose Calcium 08/08/17 08/08/17 03:55 08:20 WBC Hgb Hct Plt Count APTT 79.2 H Sodium 139 Potassium 4.4 Chloride 102 Carbon Dioxide 32 H BUN 37 H Creatinine 1.21 H Glucose 265 H Calcium 8.7 Impressions Echocardiogram 08/07/17 10:56 Impressions: LVEF 45-50%. Low normal to mild global LV systolic dysfunction. There are no new regional variations when compared to prior echo, 05/19/2017. Severe diastolic dysfunction with restrictive physiology. Normal right ventricular structure and function. Mild mitral regurgitation. Mild tricuspid regurgitation. Mild pulmonary hypertension. Mild pulmonic regurgitation. Left Ventricular Wall Motion: Rest Echo Findings The mid inferior, basal anterior septal and basal inferior lateral mar were hypokinetic. 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 The mid anterior septal and mid inferior lateral mar were not visualized. All other wall segments showed normal motion. Findings: Study Quality * Technically adequate exam. ECG Findings * Normal sinus rhythm. Left Ventricle * Normal LV size. * Asymmetric basal septal hypertrophy. * Probably mild increased LV wall thickness - measurements not well obtained. * Severe diastolic dysfunction with restrictive physiology. * LVEF 45-50%. Right Ventricle * Normal right ventricular structure and function. Left Atrium * Severely dilated left atrium. Right Atrium * Normal right atrial size. Mitral Valve * No mitral stenosis. * Mild mitral annular calcification * Mild mitral regurgitation. * Mildly calcified mitral valve leaflets. Aortic Valve * Trileaflet aortic valve. * Mildly thickened aortic valve leaflets. * No aortic stenosis. * Trace aortic regurgitation. Tricuspid Valve * Tricuspid valve not well visualized. * Mild tricuspid regurgitation. * Estimated RA pressure is 3 mmHg. * Estimated RVSP is 39 mmHg. * Mild pulmonary hypertension. Pulmonic Valve * Pulmonic valve is not well visualized. * No pulmonic stenosis. * Mild pulmonic regurgitation. Pulmonary Artery * Pulmonary artery not well visualized. Aorta * Normally sized aortic root. * Ascending aorta not well visualized. Interatrial Septum * No evidence of PFO by color Doppler. Pericardium * There is no pericardial effusion present. IVC * Normal IVC dimensions and inspiratory collapse. Active Medications Albuterol/Ipratropium (Duoneb) 3 ml IH [id number] [facility] PRN Reason: Protocol Stop: 02/05/18 16:46 Last Admin: 08/08/17 11:06 Dose: 3 ml Aspirin (Aspirin Ec) 325 mg PO DAILY [facility] Stop: 02/05/18 20:46 Last Admin: 08/08/17 08:07 Dose: 325 mg Atorvastatin Calcium (Lipitor) 40 mg PO HS [facility] Stop: 02/05/18 21:01 Last Admin: 08/07/17 21:35 Dose: 40 mg Clopidogrel Bisulfate (Plavix) 75 mg PO DAILY [facility] Stop: 02/06/18 09:01 Last Admin: 08/08/17 08:07 Dose: 75 mg Dextrose/Water (Dextrose 50% (Syg)) 25 ml IVP AD PRN PRN Reason: Hypoglycemia Stop: 02/05/18 16:56 Furosemide (Lasix) 20 mg IVP TIDDIURETIC YAS Stop: 02/05/18 16:46 Last Admin: 08/08/17 12:00 Dose: 20 mg Gabapentin (Neurontin) 100 mg PO TID YAS Stop: 02/05/18 21:01 Last Admin: 08/08/17 08:07 Dose: 100 mg Glucagon (Glucagen) 1 mg IM ONCE PRN PRN Reason: Hypoglycemia Stop: 02/05/18 16:56 Glucose (Gluctose) 15 gm PO ONCE PRN PRN Reason: Hypoglycemia Stop: 02/05/18 16:56 Glucose (Gluctose) 30 gm PO ONCE PRN PRN Reason: Hypoglycemia Stop: 02/05/18 16:56 Heparin Sodium (Porcine) (Heparin) 6,300 unit 70 unit/kg (6300 unit) IVP Q6HR PRN PRN Reason: SEE COMMENTS Stop: 02/05/18 16:42 Heparin Sodium (Porcine) (Heparin) 3,200 unit 35 unit/kg (3200 unit) IVP Q6H PRN PRN Reason: SEE COMMENTS Stop: 02/05/18 16:42 Last Admin: 08/07/17 05:02 Dose: 3,200 unit Hydroxyzine HCl (Hydroxyzine) 10 mg PO HS YAS Stop: 02/05/18 21:01 Last Admin: 08/07/17 21:35 Dose: 10 mg Levofloxacin/Dextrose (Levaquin Premix 750mg/150 Ml) 750 mg in 150 mls @ 100 mls/hr IVPB Q48H YAS PRN Reason: Protocol Stop: 02/07/18 11:01 Last Admin: 08/08/17 11:59 Dose: 100 mls/hr Heparin Sodium/Dextrose (Heparin 25,000 Unit/500 Ml D5w) 25,000 unit in 500 mls @ 25.368 mls/hr IVC .[id number] YAS; 14 UNIT/KG/HR PRN Reason: Protocol Stop: 02/05/18 16:46 Last Titration: 08/08/17 02:40 Dose: 9 unit/kg/hr, 16.308 mls/hr Dextrose (Dextrose 5%) 1,000 mls @ 100 mls/hr IVC .Q10H PRN PRN Reason: HYPOGLYCEMIA Stop: 02/05/18 16:56 Insulin Human Lispro (Humalog) 0 units SQ TIDAC [facility] PRN Reason: Protocol Stop: 02/06/18 07:31 Last Admin: 08/08/17 12:00 Dose: Not Given Insulin Human Lispro (Humalog) 0 units SQ HS [facility] PRN Reason: Protocol Stop: 02/05/18 21:01 Last Admin: 08/07/17 22:25 Dose: Not Given Isosorbide Mononitrate (Imdur) 60 mg PO BID [facility] Stop: 02/05/18 21:01 Last Admin: 08/08/17 08:07 Dose: 60 mg Lisinopril (Zestril) 10 mg PO DAILY [facility] PRN Reason: Protocol Stop: 02/05/18 16:46 Last Admin: 08/08/17 08:06 Dose: 10 mg Lorazepam (Ativan) 0.5 mg IVP Q4HR PRN PRN Reason: Anxiety Stop: 02/05/18 20:01 Last Admin: 08/07/17 22:22 Dose: 0.5 mg Methylprednisolone (Solu-Medrol) 40 mg IVP Q8HR [facility] Stop: 02/06/18 16:41 Last Admin: 08/08/17 08:07 Dose: 40 mg Metoprolol Tartrate (Lopressor) 100 mg PO HS [facility] Stop: 02/05/18 21:01 Last Admin: 08/07/17 21:35 Dose: 100 mg Metoprolol Tartrate (Lopressor) 50 mg PO DAILY [facility] Stop: 02/06/18 09:01 Last Admin: 08/08/17 08:06 Dose: 50 mg Naloxone HCl (Narcan) 0.4 mg IVP Q2MIN PRN PRN Reason: Opioid Reversal Stop: 02/05/18 16:42 Nitroglycerin (Nitroglycerin) 0.5 inch TP Q6HNTG [facility] Stop: 02/05/18 23:01 Last Admin: 08/08/17 06:24 Dose: 0.5 inch Omeprazole (Prilosec) 40 mg PO DAILY@0630 [facility] PRN Reason: Protocol Stop: 02/06/18 06:31 Last Admin: 08/08/17 06:15 Dose: Not Given Ondansetron HCl (Zofran) 4 mg IVP Q8HR PRN PRN Reason: Nausea And Vomiting Stop: 02/05/18 16:42 Oxycodone HCl (Roxicodone) 5 mg PO Q6HR PRN PRN Reason: Moderate Pain (4-6) Stop: 02/05/18 16:42 Ropinirole HCl (Requip) 3 mg PO HS YAS Stop: 02/05/18 21:01 Last Admin: 08/07/17 21:35 Dose: 3 mg - Imaging and Cardiology Echo: report reviewed - EKG Interpretation EKG results cardiology: other (12 hr tele AVG HR 66, SR, no significant pauses or arrhythmias) Consult Discharge Plan - Plan Referrals: Obed Sterling MD [Partnered Physician] - 08/10/17 2:30 pm Roselia Andrews CNP [Advanced Practice Nurse] - 08/14/17 9:00 am
--- NOTE | 2017-08-08 14:34 | Internal Med Progress Note ---
Date of Encounter: 08/08/17 Time of Encounter: 14:33 - Assessment and plan (1) NSTEMI (non-ST elevated myocardial infarction) Current Visit: No Status: Acute Assessment and plan: Management per cardiology. Possible left heart catheter notes. Continue with heparin drip. Continue with cardiac meds per cardiology. I see the patient is on aspirin and Plavix statin as well as a beta bess. She is also on Imdur. 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 Cardiology is following. She is being diuresed. We will decrease Lasix to 20 mg twice a day from 3 times a day given the elevation in kidney function. Monitor I's and O' s. Continue beta bess. Qualifiers: Congestive heart failure type: combined Qualified Code(s): I50.41 - Acute combined systolic (congestive) and diastolic (congestive) heart failure (3) Long QT interval Current Visit: Yes Status: Acute Assessment and plan: We will switch Levaquin to Doxy. Repeat EKG in a day or 2. (4) COPD (chronic obstructive pulmonary disease) Current Visit: No Status: Acute Assessment and plan: I do not believe the patient is in a COPD exacerbation. We will stop IV steroids. Continue with nebulizers and inhalers. Qualifiers: COPD type: unspecified COPD Qualified Code(s): J44.9 - Chronic obstructive pulmonary disease, unspecified (5) Diabetes mellitus Current Visit: No Status: Acute Assessment and plan: 2 insulin pump. We will use 10 units of Levemir as basal insulin. We will continue with insulin sliding scale. Continue with Accu-Cheks. 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 Patient is also on Levaquin which is switched to Doxy (7) Tracheostomy in place Current Visit: No Status: Acute Assessment and plan: Stable. This is chronic. (8) DVT prophylaxis Current Visit: No Status: Acute Assessment and plan: Patient is on a heparin drip - Subjective Interval history: Patient was seen and examined. The patient was admitted with NSTEMI and is being treated for pneumonia as well as COPD exacerbation. Been afebrile. Had elevated D dimers admission CTA ruled out a PE. Patient has a chronic trach. - Constitutional Vitals: Temp Pulse Resp BP Pulse Ox 97.9 F 59 18 155/65 97 08/08/17 11:40 08/08/17 11:40 08/08/17 11:40 08/08/17 11:40 08/08/17 11:40 General appearance: Present: cooperative, mild distress, A&O X 3, answers questions appropriately Exam: GEN: NAD CVS: RRR. S1, S2, No m/r/g RESP: Crackles at the bases. Diminished. ABD: Soft, NT, ND, +BS EXT: No edema. 2+ DP. No rashes NEURO: Nonfocal Internal Medicine: Result - Labs CBC & Chem 7: 08/08/17 03:55 08/08/17 03:55 Labs: Short CBC 08/08/17 Range/Units 03:55 WBC 14.2 H (4.3-11.1) K/mcL Hgb 10.1 L (11.5-15.4) g/dL Hct 31.6 L (35.3-44.9) % Plt Count 190 (140-400) K/mcL Neutrophils # 13.0 H (1.6-8.9) K/mcL BMP 08/08/17 03:55 Sodium 139 Potassium 4.4 Chloride 102 Carbon Dioxide 32 H BUN 37 H Creatinine 1.21 H Glucose 265 H Calcium 8.7 - ABG Interpretation ABG results: PT/INR, D-dimer PT 13.1 Seconds (9.4-12.1) H 08/06/17 16:57 - Impressions Impressions Echocardiogram 08/07/17 10:56 Impressions: LVEF 45-50%. Low normal to mild global LV systolic dysfunction. There are no new regional variations when compared to prior echo, 05/19/2017. Severe diastolic dysfunction with restrictive physiology. Normal right ventricular structure and function. Mild mitral regurgitation. Mild tricuspid regurgitation. Mild pulmonary hypertension. Mild pulmonic regurgitation. Left Ventricular Wall Motion: Rest Echo Findings The mid inferior, basal anterior septal and basal inferior lateral mar were hypokinetic. 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 The mid anterior septal and mid inferior lateral mar were not visualized. All other wall segments showed normal motion. Findings: Study Quality * Technically adequate exam. ECG Findings * Normal sinus rhythm. Left Ventricle * Normal LV size. * Asymmetric basal septal hypertrophy. * Probably mild increased LV wall thickness - measurements not well obtained. * Severe diastolic dysfunction with restrictive physiology. * LVEF 45-50%. Right Ventricle * Normal right ventricular structure and function. Left Atrium * Severely dilated left atrium. Right Atrium * Normal right atrial size. Mitral Valve * No mitral stenosis. * Mild mitral annular calcification * Mild mitral regurgitation. * Mildly calcified mitral valve leaflets. Aortic Valve * Trileaflet aortic valve. * Mildly thickened aortic valve leaflets. * No aortic stenosis. * Trace aortic regurgitation. Tricuspid Valve * Tricuspid valve not well visualized. * Mild tricuspid regurgitation. * Estimated RA pressure is 3 mmHg. * Estimated RVSP is 39 mmHg. * Mild pulmonary hypertension. Pulmonic Valve * Pulmonic valve is not well visualized. * No pulmonic stenosis. * Mild pulmonic regurgitation. Pulmonary Artery * Pulmonary artery not well visualized. Aorta * Normally sized aortic root. * Ascending aorta not well visualized. Interatrial Septum * No evidence of PFO by color Doppler. Pericardium * There is no pericardial effusion present. IVC * Normal IVC dimensions and inspiratory collapse. Consult Discharge Plan - Plan Referrals: Obed Sterling MD [Partnered Physician] - 08/10/17 2:30 pm Roselia Andrews CNP [Advanced Practice Nurse] - 08/14/17 9:00 am
[2017-08-08] MEDS ORDERED: Insulin DETEMIR 100 UNIT/ML X5UNITS SQ ONE (14:39)
[2017-08-08] MEDS: *HR* LORazepam 2 MG/ML VIAL IVP PRN ×2 (16:44→20:59)
--- NOTE | 2017-08-08 19:51 | Electrocardiograph Report ---
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
[2017-08-08] MEDS: Doxycycline 100 MG CAPSULE PO SCH (20:59)
[2017-08-08] MEDS: Metoprolol 100 MG TABLET PO SCH (20:59)
[2017-08-09] MEDS: Ipratropium/Albuterol Neb 3 ML IH SCH ×4 (03:14→21:37)
[2017-08-09 07:12] LABS: Basophils % 0.1 %; Eosinophils % 0.1 %; Hematocrit 35.1 % (35.3-44.9); Hemoglobin 10.8 g/dL (11.5-15.4); Immature Granulocytes % 1.1 % (0-4); Lymphocytes # 1.9 K/mcL (0.6-4.6); Mean Corpuscular HGB Conc 30.8 g/dL (31.6-35.5); Mean Corpuscular Hemoglobin 29.7 pg (28.0-33.3); Mean Corpuscular Volume 96.4 fL (83.0-100.0); Monocytes # 1.4 K/mcL (0.0-1.3); Neutrophils # 13.5 K/mcL (1.6-8.9); Platelet Count 207 K/mcL (140-400); Red Blood Count 3.64 M/mcL (3.82-4.97); Red Cell Distribution Width 13.2 % (11.5-14.5); Segmented Neutrophils % 79.7 %
[2017-08-09 08:17] LABS: Calcium 8.9 mg/dL (8.6-10.3); Potassium 3.6 mEq/L (3.5-5.1)
[2017-08-09] MEDS: Aspirin Enteric Coated 325 MG Tablet PO SCH (08:46)
[2017-08-09] MEDS: Doxycycline 100 MG CAPSULE PO SCH ×2 (08:47→22:19)
[2017-08-09] MEDS: Gabapentin 100 MG CAPSULE PO SCH ×2 (08:47→22:20)
[2017-08-09] MEDS: Isosorbide MONOnitrate (24 HR) 60 MG TAB.ER.24H PO SCH ×2 (08:47→22:19)
[2017-08-09] MEDS: Insulin LISPRO 300 UNITS/3 ML VIAL SQ SCH ×6 (08:48→23:51)
[2017-08-09] MEDS: *HR* LORazepam 2 MG/ML VIAL IVP PRN ×2 (08:48→22:20)
[2017-08-09] MEDS: Furosemide 20 MG/2 ML VIAL IVP SCH ×2 (08:48→17:51)
--- NOTE | 2017-08-09 09:37 | Cardiology Progress Note ---
Date of Encounter: 08/09/17 Time of Encounter: 09:35 Assessment and Plan (1) NSTEMI (non-ST elevated myocardial infarction) Current Visit: No Status: Acute Troponins 0.06, 4.04, 12.45, 21.75. EKG with more pronounced/deeper T wave inversions in anterolateral leads. Pt is on heparin gtt. Denies chest pain. Of note, pt had NSTEMI with peak troponin of 21.74 05/18/17. She underwent LHC at that time showing severe 3 vessel CAD, no intervention and medical management was recommended. Echo 05/2017 EF was preserved. Repeat echo during this stay LVEF mildly reduced 45-50%. Low normal to mild global LV systolic dysfunction. There are no new regional variations when compared to prior echo, 05/19/2017. Severe diastolic dysfunction with restrictive physiology. Normal right ventricular structure and function. Mild MR and TR. Mild pulmonary hypertension. Continue heparin gtt, ASA, Plavix, Statin, BB, ACEi. Recommend repeat ischemic evaluation with LHC given her significant troponin elevation and EKG changes. R/B/A discussed. Pt is considering, but only wants Dr. Escamilla as interventionalist. Plan was for possible LHC today, but pt prefers to discuss with family and will make a final decision later today. Possible LHC tomorrow pending her decision. (2) CAD (coronary artery disease) Current Visit: No Status: Acute Prior CABG and PCI. As above, LHC 05/2017 severe 3 vessel disease without intervention, medical management was recommended. ASA, Plavix, Statin, BB, ACEi. Holding ACEi given diuresis with Lasix and potential LHC. Qualifiers: Coronary Disease-Associated Artery/Lesion type: unspecified vessel or lesion type [place] vs. transplanted heart: ruby heart Associated angina: angina presence unspecified Qualified Code(s): I25.10 - Atherosclerotic heart disease of ruby coronary artery without angina pectoris (3) Acute CHF Current Visit: Yes Status: Acute Echo EF 45-50%, mild global systolic dysfunction. Severe diastolic dysfunction with restrictive physiology. Currently on Lasix 20mg IV BID. Cumulative net negative -4832mL during stay. Respiratory status has improved with diuresis. Creatinine has improved with decrease in Lasix. Recommend strict I/Os, Na and fluid restriction, daily weights. Will need maintenance PO Lasix at discharge. Qualifiers: Congestive heart failure type: combined Qualified Code(s): I50.41 - Acute combined systolic (congestive) and diastolic (congestive) heart failure (4) Long QT interval Current Visit: Yes Status: Acute QT/QTc interval increased. EKG 08/06 showed QT/QTc of 456/483ms. EKG 08/08/17 QT/ QTc 620/606ms. Pt was on Levaquin. Discussed with hospitalist, switched to a different antibiotic that is not QT prolonging. Discussed with pharmacy, stopped PRN Zofran and Hydroxyzine. Continue to monitor. Repeat EKG ordered. Discussion w patient/family: The assessment and plan as outlined above was discussed with the patient and/or family members who expressed understanding and agreement. All questions were answered. Thank you for involving us in the care of your patient. Please call with any questions. I will discuss all the above with Dr. Rya and make changes as necessary. Subjective Principal diagnosis: NSTEMI Interval history: Pt reports dyspnea has improved. Denies chest pain. Renal function has normalized. Discussed LHC today. Pt would like to discuss with family later today, make a final decision and possibly have LHC tomorrow. Objective Vital Signs, Last 4 Hours Temp Pulse Resp BP Pulse Ox 08/09/17 07:18 97.9 F 61 18 161/60 99 Vital Signs Temp Pulse Resp BP Pulse Ox 08/09/17 07:18 97.9 F 61 18 161/60 99 08/09/17 03:35 97.8 F 68 20 161/72 99 08/09/17 03:14 18 144/50 100 08/08/17 23:34 97.9 F 79 18 144/50 99 08/08/17 21:43 18 100 08/08/17 20:31 98.1 F 73 16 164/52 100 08/08/17 17:14 149/48 08/08/17 16:25 16 100 08/08/17 16:20 98.3 F 71 17 145/33 100 08/08/17 11:40 97.9 F 59 18 155/65 97 08/08/17 11:08 16 98 Intake and Output 08/08/17 08/09/17 08/09/17 23:59 07:59 15:59 Intake Total 0 / 0 130 / 130 Output Total 0 / 0 450 / 450 Balance 0 / 0 -320 / -320 Intake: Oral 0 / 0 130 / 130 Output: Urine 0 / 0 450 / 450 Other: Meal Dinner Percent of Meal Consumed 100% Stool Size Large Stool Consistency soft Stool Characteristics Normal for Patient Stool Color Brown # Bowel Movement Diapers 1 Weight 71.9 kg Blood Glucose* 327 219 Patient Weight 08/09/17 23:59 Weight 71.9 kg General: Conversant, No Apparent Distress HEENT: Atraumatic, Normocephaly, Mucus Membranes Moist Neck: Normal carotid pulses Cardiac: Reg Rate and Rhythm, Normal S1 and S2, No Murmur Lungs: Other (diminished) Neuro: Alert and responsive, No focal deficits noted Abdomen: Soft, Non-Tender Skin: No rashes noted on visualized skin Musculoskeletal: No Chest Wall Tenderness Extremities: No Clubbing, No Cyanosis, No Edema, Normal Pulses Results 08/09/17 06:35 08/09/17 06:35 Lab Results 08/08/17 08/09/17 08/09/17 15:35 06:35 06:35 WBC 16.9 H Hgb 10.8 L Hct 35.1 L Plt Count 207 APTT 70.9 H Sodium 141 Potassium 3.6 Chloride 102 Carbon Dioxide 35 H BUN 34 H Creatinine 1.10 Glucose 224 H Calcium 8.9 08/09/17 06:35 WBC Hgb Hct Plt Count APTT 45.1 H Sodium Potassium Chloride Carbon Dioxide BUN Creatinine Glucose Calcium Short CBC 08/09/17 Range/Units 06:35 WBC 16.9 H (4.3-11.1) K/mcL Hgb 10.8 L (11.5-15.4) g/dL Hct 35.1 L (35.3-44.9) % Plt Count 207 (140-400) K/mcL Neutrophils # 13.5 H (1.6-8.9) K/mcL BMP 08/09/17 Range/Units 06:35 Sodium 141 (136-145) mEq/L Potassium 3.6 (3.5-5.1) mEq/L Chloride 102 (98-107) mEq/L Carbon Dioxide 35 H (23-29) mEq/L BUN 34 H (8-23) mg/dL Creatinine 1.10 (0.60-1.20) mg/dL Glucose 224 H (70-105) mg/dL Calcium 8.9 (8.6-10.3) mg/dL Impressions Echocardiogram 08/07/17 10:56 Impressions: LVEF 45-50%. Low normal to mild global LV systolic dysfunction. There are no new regional variations when compared to prior echo, 05/19/2017. Severe diastolic dysfunction with restrictive physiology. Normal right ventricular structure and function. Mild mitral regurgitation. Mild tricuspid regurgitation. Mild pulmonary hypertension. Mild pulmonic regurgitation. Left Ventricular Wall Motion: Rest Echo Findings The mid inferior, basal anterior septal and basal inferior lateral mar were hypokinetic. 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 The mid anterior septal and mid inferior lateral mar were not visualized. All other wall segments showed normal motion. Findings: Study Quality * Technically adequate exam. ECG Findings * Normal sinus rhythm. Left Ventricle * Normal LV size. * Asymmetric basal septal hypertrophy. * Probably mild increased LV wall thickness - measurements not well obtained. * Severe diastolic dysfunction with restrictive physiology. * LVEF 45-50%. Right Ventricle * Normal right ventricular structure and function. Left Atrium * Severely dilated left atrium. Right Atrium * Normal right atrial size. Mitral Valve * No mitral stenosis. * Mild mitral annular calcification * Mild mitral regurgitation. * Mildly calcified mitral valve leaflets. Aortic Valve * Trileaflet aortic valve. * Mildly thickened aortic valve leaflets. * No aortic stenosis. * Trace aortic regurgitation. Tricuspid Valve * Tricuspid valve not well visualized. * Mild tricuspid regurgitation. * Estimated RA pressure is 3 mmHg. * Estimated RVSP is 39 mmHg. * Mild pulmonary hypertension. Pulmonic Valve * Pulmonic valve is not well visualized. * No pulmonic stenosis. * Mild pulmonic regurgitation. Pulmonary Artery * Pulmonary artery not well visualized. Aorta * Normally sized aortic root. * Ascending aorta not well visualized. Interatrial Septum * No evidence of PFO by color Doppler. Pericardium * There is no pericardial effusion present. IVC * Normal IVC dimensions and inspiratory collapse. Active Medications Albuterol/Ipratropium (Duoneb) 3 ml IH [id number] [facility] PRN Reason: Protocol Stop: 02/05/18 16:46 Last Admin: 08/09/17 03:14 Dose: 3 ml Aspirin (Aspirin Ec) 325 mg PO DAILY YAS Stop: 02/05/18 20:46 Last Admin: 08/09/17 08:46 Dose: 325 mg Atorvastatin Calcium (Lipitor) 40 mg PO HS [facility] Stop: 02/05/18 21:01 Last Admin: 08/08/17 20:59 Dose: 40 mg Clopidogrel Bisulfate (Plavix) 75 mg PO DAILY YAS Stop: 02/06/18 09:01 Last Admin: 08/09/17 08:47 Dose: 75 mg Dextrose/Water (Dextrose 50% (Syg)) 25 ml IVP AD PRN PRN Reason: Hypoglycemia Stop: 02/05/18 16:56 Doxycycline Hyclate (Doxycycline) 100 mg PO BID YAS Stop: 02/07/18 21:01 Last Admin: 08/09/17 08:47 Dose: 100 mg Furosemide (Lasix) 20 mg IVP BIDDIURETIC YAS Stop: 02/08/18 09:01 Last Admin: 08/09/17 08:48 Dose: 20 mg Gabapentin (Neurontin) 100 mg PO BID YAS Stop: 02/05/18 21:01 Last Admin: 08/09/17 08:47 Dose: 100 mg Glucagon (Glucagen) 1 mg IM ONCE PRN PRN Reason: Hypoglycemia Stop: 02/05/18 16:56 Glucose (Gluctose) 15 gm PO ONCE PRN PRN Reason: Hypoglycemia Stop: 02/05/18 16:56 Glucose (Gluctose) 30 gm PO ONCE PRN PRN Reason: Hypoglycemia Stop: 02/05/18 16:56 Heparin Sodium (Porcine) (Heparin) 6,300 unit 70 unit/kg (6300 unit) IVP Q6HR PRN PRN Reason: SEE COMMENTS Stop: 02/05/18 16:42 Heparin Sodium (Porcine) (Heparin) 3,200 unit 35 unit/kg (3200 unit) IVP Q6H PRN PRN Reason: SEE COMMENTS Stop: 02/05/18 16:42 Last Admin: 08/07/17 05:02 Dose: 3,200 unit Heparin Sodium/Dextrose (Heparin 25,000 Unit/500 Ml D5w) 25,000 unit in 500 mls @ 25.368 mls/hr IVC .[id number] YAS; 14 UNIT/KG/HR PRN Reason: Protocol Stop: 02/05/18 16:46 Last Titration: 08/08/17 02:40 Dose: 9 unit/kg/hr, 16.308 mls/hr Dextrose (Dextrose 5%) 1,000 mls @ 100 mls/hr IVC .Q10H PRN PRN Reason: HYPOGLYCEMIA Stop: 02/05/18 16:56 Insulin Human Lispro (Humalog) 0 units SQ TIDAC [facility] PRN Reason: Protocol Stop: 02/06/18 07:31 Last Admin: 08/09/17 08:48 Dose: 4 units Insulin Human Lispro (Humalog) 0 units SQ HS [facility] PRN Reason: Protocol Stop: 02/05/18 21:01 Last Admin: 08/08/17 21:25 Dose: 5 units Isosorbide Mononitrate (Imdur) 60 mg PO BID [facility] Stop: 02/05/18 21:01 Last Admin: 08/09/17 08:47 Dose: 60 mg Lorazepam (Ativan) 0.5 mg IVP Q4HR PRN PRN Reason: Anxiety Stop: 02/05/18 20:01 Last Admin: 08/09/17 08:48 Dose: 0.5 mg Metoprolol Tartrate (Lopressor) 100 mg PO HS [facility] Stop: 02/05/18 21:01 Last Admin: 08/08/17 20:59 Dose: 100 mg Metoprolol Tartrate (Lopressor) 50 mg PO DAILY [facility] Stop: 02/06/18 09:01 Last Admin: 08/09/17 08:46 Dose: 50 mg Naloxone HCl (Narcan) 0.4 mg IVP Q2MIN PRN PRN Reason: Opioid Reversal Stop: 02/05/18 16:42 Omeprazole (Prilosec) 40 mg PO DAILY@0630 [facility] PRN Reason: Protocol Stop: 02/06/18 06:31 Last Admin: 08/09/17 08:47 Dose: 40 mg Oxycodone HCl (Roxicodone) 5 mg PO Q6HR PRN PRN Reason: Moderate Pain (4-6) Stop: 02/05/18 16:42 Ropinirole HCl (Requip) 3 mg PO HS [facility] Stop: 02/05/18 21:01 Last Admin: 08/08/17 20:59 Dose: 3 mg - Imaging and Cardiology Echo: report reviewed - EKG Interpretation EKG results cardiology: other (12 hr tele AVG HR 63, SR, no significant pauses or arrhythmias) Consult Discharge Plan - Plan Referrals: Roselia Andrews CNP [Advanced Practice Nurse] - 08/14/17 9:00 am Jerome Gonzales MD [Partnered Physician] - 09/04/17 8:15 am (please show up 15 mins early. Takw with you to your appointment Photo ID, insurance cards, and all medications)
--- NOTE | 2017-08-09 10:42 | Internal Med Progress Note ---
Date of Encounter: 08/09/17 Time of Encounter: 10:41 - Assessment and plan (1) NSTEMI (non-ST elevated myocardial infarction) Current Visit: No Status: Acute Assessment and plan: Management per cardiology. Possible left heart catheterization today or tomorrow. Patient still wants to think about it. Continue with heparin drip. Continue with cardiac meds per cardiology. I see the patient is on aspirin and Plavix statin as well as a beta bess. She is also on Imdur. 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 Cardiology is following. She is being diuresed. Continue with Lasix 20 mg twice a day. Monitor kidney function. Monitor I's and O's. Continue beta bess. Qualifiers: Congestive heart failure type: combined Qualified Code(s): I50.41 - Acute combined systolic (congestive) and diastolic (congestive) heart failure (3) Long QT interval Current Visit: Yes Status: Acute Assessment and plan: Levaquin switch to Doxy on 08/08/2017.. Repeat EKG. (4) COPD (chronic obstructive pulmonary disease) Current Visit: No Status: Acute Assessment and plan: I do not believe the patient is in a COPD exacerbation. Stopped IV steroids . Continue with nebulizers and inhalers. Qualifiers: COPD type: unspecified COPD Qualified Code(s): J44.9 - Chronic obstructive pulmonary disease, unspecified (5) Diabetes mellitus Current Visit: No Status: Acute Assessment and plan: Stopped insulin pump 08/08/2017. Increase Levemir to 20 units daily . She was given 10 units yesterday. We will add 5 units of lispro with meals. We will continue with insulin sliding scale. Continue with Accu-Cheks. 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 Patient is also on Doxy (7) Tracheostomy in place Current Visit: No Status: Acute Assessment and plan: Stable. This is chronic. (8) DVT prophylaxis Current Visit: No Status: Acute Assessment and plan: Patient is on a heparin drip - Subjective Interval history: Patient was seen and examined. She feels better. No chest pain. Has been afebrile. The patient was admitted with NSTEMI and is being treated for pneumonia as well as COPD exacerbation for which I felt the patient did not need steroids since I did not hear wheezes and I stopped her steroids 2017. Had elevated D dimers admission CTA ruled out a PE. Patient has a chronic trach. - Constitutional Vitals: Temp Pulse Resp BP Pulse Ox 97.9 F 71 18 161/60 100 08/09/17 07:18 08/09/17 09:00 08/09/17 07:18 08/09/17 07:18 08/09/17 09:00 General appearance: Present: cooperative, mild distress, A&O X 3, answers questions appropriately Exam: GEN: NAD CVS: RRR. S1, S2, No m/r/g RESP: Crackles at the bases. Diminished. ABD: Soft, NT, ND, +BS EXT: No edema. 2+ DP. No rashes NEURO: Nonfocal Internal Medicine: Result - Labs CBC & Chem 7: 08/09/17 06:35 08/09/17 06:35 Labs: Short CBC 08/09/17 Range/Units 06:35 WBC 16.9 H (4.3-11.1) K/mcL Hgb 10.8 L (11.5-15.4) g/dL Hct 35.1 L (35.3-44.9) % Plt Count 207 (140-400) K/mcL Neutrophils # 13.5 H (1.6-8.9) K/mcL BMP 08/09/17 06:35 Sodium 141 Potassium 3.6 Chloride 102 Carbon Dioxide 35 H BUN 34 H Creatinine 1.10 Glucose 224 H Calcium 8.9 - ABG Interpretation ABG results: PT/INR, D-dimer PT 13.1 Seconds (9.4-12.1) H 08/06/17 16:57 - Impressions Impressions Echocardiogram 08/07/17 10:56 Impressions: LVEF 45-50%. Low normal to mild global LV systolic dysfunction. There are no new regional variations when compared to prior echo, 05/19/2017. Severe diastolic dysfunction with restrictive physiology. Normal right ventricular structure and function. Mild mitral regurgitation. Mild tricuspid regurgitation. Mild pulmonary hypertension. Mild pulmonic regurgitation. Left Ventricular Wall Motion: Rest Echo Findings The mid inferior, basal anterior septal and basal inferior lateral mar were hypokinetic. 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 The mid anterior septal and mid inferior lateral mar were not visualized. All other wall segments showed normal motion. Findings: Study Quality * Technically adequate exam. ECG Findings * Normal sinus rhythm. Left Ventricle * Normal LV size. * Asymmetric basal septal hypertrophy. * Probably mild increased LV wall thickness - measurements not well obtained. * Severe diastolic dysfunction with restrictive physiology. * LVEF 45-50%. Right Ventricle * Normal right ventricular structure and function. Left Atrium * Severely dilated left atrium. Right Atrium * Normal right atrial size. Mitral Valve * No mitral stenosis. * Mild mitral annular calcification * Mild mitral regurgitation. * Mildly calcified mitral valve leaflets. Aortic Valve * Trileaflet aortic valve. * Mildly thickened aortic valve leaflets. * No aortic stenosis. * Trace aortic regurgitation. Tricuspid Valve * Tricuspid valve not well visualized. * Mild tricuspid regurgitation. * Estimated RA pressure is 3 mmHg. * Estimated RVSP is 39 mmHg. * Mild pulmonary hypertension. Pulmonic Valve * Pulmonic valve is not well visualized. * No pulmonic stenosis. * Mild pulmonic regurgitation. Pulmonary Artery * Pulmonary artery not well visualized. Aorta * Normally sized aortic root. * Ascending aorta not well visualized. Interatrial Septum * No evidence of PFO by color Doppler. Pericardium * There is no pericardial effusion present. IVC * Normal IVC dimensions and inspiratory collapse. Consult Discharge Plan - Plan Referrals: Roselia Andrews CNP [Advanced Practice Nurse] - 08/14/17 9:00 am Jerome Gonzales MD [Partnered Physician] - 09/04/17 8:15 am (please show up 15 mins early. Takw with you to your appointment Photo ID, insurance cards, and all medications)
[2017-08-09] MEDS ORDERED: Insulin DETEMIR 100 UNIT/ML X5UNITS SQ ONE (10:44)
--- NOTE | 2017-08-09 13:38 | Event Note ---
Date of Encounter: 08/09/17 Time of Encounter: 13:37 - Cardiology Event Note Rediscussed LHC with pt. She does wish to proceed with [facility] tomorrow. R/B/A discussed. Pt agreeable.
[2017-08-09] MEDS: *HR* Heparin 5,000 UNIT/ML VIAL SQ SCH ×2 (15:18→22:20)
[2017-08-09] MEDS: Metoprolol 100 MG TABLET PO SCH (22:19)
[2017-08-10] MEDS: Ipratropium/Albuterol Neb 3 ML IH SCH ×4 (03:21→22:41)
[2017-08-10 03:37] LABS: Basophils % 0.3 %; Eosinophils # 0.7 K/mcL (0.0-0.6); Hemoglobin 9.7 g/dL (11.5-15.4); Immature Granulocytes % 0.6 % (0-4); Lymphocytes % 28.2 %; Mean Corpuscular HGB Conc 31.3 g/dL (31.6-35.5); Mean Corpuscular Hemoglobin 30.1 pg (28.0-33.3); Mean Corpuscular Volume 96.3 fL (83.0-100.0); Mean Platelet Volume 11.5 fL (9.4-12.4); Monocytes # 0.8 K/mcL (0.0-1.3); Monocytes % 7.4 %; Neutrophils # 5.9 K/mcL (1.6-8.9); Platelet Count 175 K/mcL (140-400); Red Blood Count 3.22 M/mcL (3.82-4.97); Red Cell Distribution Width 13.3 % (11.5-14.5); Segmented Neutrophils % 56.5 %
[2017-08-10 04:15] LABS: Calcium 8.3 mg/dL (8.6-10.3); Potassium 4.1 mEq/L (3.5-5.1)
[2017-08-10] MEDS: *HR* Heparin 5,000 UNIT/ML VIAL SQ SCH ×3 (05:24→20:21)
[2017-08-10] MEDS ORDERED: Heparin 1,000 UNITS/500 mL 500 ML ONE (08:55)
[2017-08-10] MEDS ORDERED: *HR* Heparin 10,000 UNIT/10 ML VIAL ONE (08:55)
[2017-08-10] MEDS ORDERED: 0.9 % Sodium Chloride 1,000 ML ONE ×2 (08:55→09:24)
[2017-08-10] MEDS ORDERED: Nitroglycerin 1,000 MCG/10 ML VIAL IV ONE (08:55)
[2017-08-10] MEDS: Gabapentin 100 MG CAPSULE PO SCH ×2 (09:06→20:20)
[2017-08-10] MEDS: Doxycycline 100 MG CAPSULE PO SCH (09:06)
[2017-08-10] MEDS: Isosorbide MONOnitrate (24 HR) 60 MG TAB.ER.24H PO SCH ×2 (09:06→20:20)
[2017-08-10] MEDS: Aspirin Enteric Coated 325 MG Tablet PO SCH (09:07)
[2017-08-10] MEDS: *HR* LORazepam 2 MG/ML VIAL IVP PRN ×2 (09:07→20:20)
[2017-08-10] MEDS ORDERED: *HR* Midazolam HCl 2 MG/2 ML VIAL ONE (09:24)
--- NOTE | 2017-08-10 09:33 | Pre-Sedation Evaluation ---
Pre-sedation evaluation - Pre-sedation checklist Date of procedure: 08/10/17 Procedure: [facility] Recent Vitals: Last Vital Signs Temp 97.5 F L 08/10/17 07:11 Pulse 53 08/10/17 07:11 Resp 15 08/10/17 07:11 BP 150/60 08/10/17 07:11 Pulse Ox 98 08/10/17 07:11 H&P (including ROS) documented in medical record: Yes Previous reaction to sedatives/anesthetics: No Dietary Status: NPO after Midnight Airway Assessment: Patient can open mouth completely, TMJ function normal Possible difficult airway: No ASA Classification *see protocol: CLASS III-Severe systemic disease Plan of Care: Pt appropriate candidate for procedure/moderate/conscious sedation , Risks/benefits of procedure/sedation discussed w/ patient/family, If not NPO; Risk of intake outweiged by necessity to perform procedure
[2017-08-10] MEDS ORDERED: *HR* Atropine Sulfate 1 MG/10 ML SYRINGE ONE (09:36)
[2017-08-10] MEDS ORDERED: ISOVUE-370 200 ML INFUS..BTL IV ONE ×2 (09:38→09:59)
[2017-08-10] MEDS ORDERED: *HR* Bivalirudin 250 MG VIAL IVC ONE (09:59)
--- NOTE | 2017-08-10 10:39 | Invasive Diagnostic Lab Proc ---
Name: Sera Valero Date of Study: 08/10/2017 Date: 1945 Ht: 61.8in Medical Record#: [id number] Age: 72 Wt: 158.51lb Gender: Female BSA: 1.73 Order #: [id number] BMI: 29.17 Physicians Procedure Physician: Matthew Escamilla DO Referring MD: Referring MD: Staff Name Position Time In Aditya Velazquezisti RT Monitor 09:30 AM Marjorie Palma RT (R) Scrub 09:30 AM Danielle Mike RN Deputy K 9 09:30 AM Indications Indication Non-Stemi Procedures Performed Procedure L HRT ARTERY/VENTRICLE ANGIO PRQ CARD ANASTASIYA STENT W/ANGIO 1 VSL Pre-Procedure Checklist Informed consent is complete signed and on chart. H&P is on chart. ID band is on and ID verified with patient. Patient NPO for procedure The procedure was described for the patient and questions were answered. Blood Pressure: 163/54 ECG is on chart. Rhythm: NSR Plan of Care Patient will tolerate the procedure without complications. Adequate level of comfort will be maintained. Hemodynamics will remain stable Patient will recover from procedure without complications. Respiratory function will be maintained. Cardiac rhythm will remain stable. Patient temperature will be maintained. Patient and/or family have verbalized understanding of the procedure. Patient Education Chief Complaint/Reason for Test: Cardiac Cath Developmental Category: Geriatric (65+ years) Developmentally Appropriate for Age: Yes Learning Barriers: None Education Needs: Procedure Education Method: Verbal Information Taught: Cardiac Cath Educational Evaluation: Able to repeat information Intravenous Access Time IV Size Location DC'd Fluid/Drip Rate Units RN 16g extended peripheral Left upper extremity 0.9NaCl 25 ml/hr Allergies latex metal PCN (penicillin) cephalexin morphine ibuprofen Vital Signs Time BP (mmHg) HR (bpm) O2 Sat. RR (bpm) LOC 08:04 AM 150 / 60 53 15 % 98 5 = Fully awake and oriented or at pre-proc level 09:32 AM / % 5 = Fully awake and oriented or at pre-proc level 09:32 AM / % 4 = Oriented but drowsy 09:47 AM / % 4 = Oriented but drowsy 10:02 AM / % 4 = Oriented but drowsy 09:27 AM 163 / 54 59 100 % 09:32 AM 163 / 64 60 100 % 17 09:37 AM 161 / 60 57 100 % 21 09:42 AM 152 / 64 57 100 % 22 09:48 AM 155 / 60 55 100 % 20 09:52 AM 149 / 56 53 100 % 30 09:57 AM 155 / 56 53 100 % 18 10:02 AM 146 / 53 54 100 % 11 10:08 AM 150 / 54 56 100 % 26 10:12 AM 155 / 54 53 100 % 20 10:17 AM 118 / 51 53 100 % 20 10:17 AM / % 4 = Oriented but drowsy Procedural Medications Time Medication Dose Units Method Given By 09:32 AM Oxygen 15 L/min 100% non rebreather mask Danielle Mike RN 09:32 AM Versed 1 mg Intravenous Danielle Mike RN 09:36 AM Oxygen 10 L/min 100% non rebreather mask Danielle Mike RN 09:45 AM Lidocaine 2% 10 ml Subcutaneous Matthew Escamilla, 10:03 AM Angiomax 0.75mg/kg bolus: 10.5 ml Intravenous Danielle Mike RN 10:03 AM Angiomax 1.75mg/kg/hr: 24.5 ml Intravenous Danielle Mike RN ASA Classification: CLASS III- Severe systemic disease (i.e. prior AMI, diabetes with vascular complications, morbid obesity) Bhargav Score Preprocedure Postprocedure Activity 2- Moves 4 extremities sustained head lift Activity 2- Moves 4 extremities sustained head lift Circulation 2- SBP +/= 20 points of pre-anesthetic level Circulation 2- SBP +/= 20 points of pre-anesthetic level Consciousness 2- Awake and alert oriented x 3 Consciousness 2- Awake and alert oriented x 3 O2 Saturation 2- Able to maintain O2 satruation of 92% on room air O2 Saturation 2- Able to maintain O2 satruation of 92% on room air Respiratory 2- Able to deep breathe and cough well Respiratory 2- Able to deep breathe and cough well Total Score 10 Total Score 10 Contrast Agent: Isovue Diagnostic Contrast: 140 ml Total Contrast: 140 ml Fluoro Dose: 931 mGy Procedure Log Time Note Enter By 09:26 AM CathStat 09:26 AM Vitals capture started with the following parameters, Patient=Adult, Interval=5 min, Initial Annezkhi=406 mmHg, Deflation Rate=5 mmHg, Cuff placed on Right Arm 09:27 AM HR=59 bpm, NOXO=993/54 mmhg, LwZ1=312 % 09:30 AM Pt arrived to labeling machine operator 2 at :30 09:30 AM Theresa Velazquez Position: Monitor Time in: :30 09:30 AM Marjorie Palma RT (R) Position: Scrub Time in: 09:30 09:30 AM Danielle Mike RN Position: Deputy K 9 Time in: :30 09:30 AM Patient charges- Angio tray pack, Navilyst 3mm J, Pulse Oximetry and ACIST tubing and transducer kk:30 AM IV Supplies used: J loop Angio Cath. kk 09:30 AM Case Delayed No :30 AM Hair removed from procedure site in procedure lab using clippers. Bilateral groin prepped with Chloraprep by Marjorie Palma (R), safety strap applied then patient was draped. Skin intact. :30 AM Physician arrived :30 :30 AM ASA Class CLASS III- Severe systemic disease (i.e. prior AMI, diabetes with vascular complications, morbid obesity) kk:30 Meet and greet completed :30 AM Sign in performed according to hospital policy. :30 AM Procedure start ::32 AM Time: :32 Oxygen on at 15 L/min per 100% non rebreather mask by Danielle Mike RN :32 AM HR=60 bpm, RFJL=220/64 mmhg, GvE1=823 %, Resp=17 B/min : AM Time: :32 Versed 1 mg Intravenous Given by Danielle Mike RN AM Time: :32 Patient comfortable and pain free: Yes AM Time: :32LOC: 5 = Fully awake and oriented or at pre-proc level :32 AM Clinical Presentation: Non-STEMI :36 AM Time: 09:36 Oxygen on at 10 L/min per 100% non rebreather mask by Danielle Mike RN 09:37 AM HR=57 bpm, RPOB=746/60 mmhg, CrM5=529 %, Resp=21 B/min 09:42 AM HR=57 bpm, KQUU=386/64 mmhg, WlL1=946.0 %, Resp=22 B/min, Comment=sb 09:43 AM Pressure channel 1 zeroed. 09:44 AM Time out performed according to hospital policy 09:45 AM Time: 09:45 10 ml Lidocaine 2% to right groin Subcutaneous Given by Matthew Escamilla DO [email or web address] 09:47 AM Time: 09:32 Patient comfortable and pain free: Yes 09:47 AM Time: 09:32LOC: 4 = Oriented but drowsy kkall 09:48 AM HR=55 bpm, KQDU=954/60 mmhg, NgG3=675.0 %, Resp=20 B/min 09:50 AM Access obtained by percutaneous puncture. 5Fr 11cm Terumo Mcgregor sheath placed in right Femoral vein. [id number] 09:51 AM Micro-Introducer Kit utilized for sheath placement kkall 09:52 AM Access obtained by percutaneous puncture. 6Fr 10cm Terumo Mcgregor sheath placed in right Femoral artery. [id number] 09:52 AM HR=53 bpm, JTYM=625/56 mmhg, MpK0=698.0 %, Resp=30 B/min 09:52 AM 6Fr FL 4 catheter inserted over the wire DN 09:52 AM wire removed 09:53 AM LCA angiography performed in multiple views. kk 09:54 AM Recorded Pressure: Ao, HR=56, Condition=Condition 1 (Aorta) Ao 147/37/73 09:57 AM HR=53 bpm, IWTE=960/56 mmhg, JwE4=957.0 %, Resp=18 B/min 09:58 AM Catheter removed 09:59 AM 6Fr FR 4 catheter inserted over the wire DN kkner 10:00 AM wire removed kkner 10:00 AM RCA angiography performed in multiple views. [email or web address] 10:01 AM Recorded Pressure: LV, HR=51, Condition=Condition 1 (Left Ventricle) LV 137/1/11 10:01 AM Catheter selectively placed in left ventricle kkallner 10:01 AM Bolus angiogram of left Ventricle complete: [email or web address] 10:01 AM Recorded Pressure: LV, Ao, HR=63, Condition=Condition 1 (Left Ventricle) LV 112/49/16, (Aorta) Ao 128/35/65 10:02 AM Catheter removed kkallner 10:02 AM HR=54 bpm, PCVL=146/53 mmhg, CqY5=558.0 %, Resp=11 B/min 10:02 AM Time: 09:47LOC: 4 = Oriented but drowsy kkall 10:02 AM Time: 09:47 Patient comfortable and pain free: Yes [email or web address] 10:03 AM Time: 10:03 Angiomax 0.75mg/kg bolus: 10.5 ml Intravenous Given by Danielle Mike RN Story pump [email or web address] 10:03 AM Time: 10:03 Angiomax 1.75mg/kg/hr: 24.5 ml Intravenous Given by Danielle Mike RN Story pump [email or web address] 10:05 AM 6Fr JL4 [place] Bright-Tip guide catheter was used to cannulate the PCI vessel successfully. reused? No kk 10:05 AM Catheter removed kk 10:06 AM JR4 inserted to assist with passing iliac kkallner 10:07 AM 0.035 260cm Navilyst 3mmJ wire [id number] kkallner 10:08 AM HR=56 bpm, TLSW=805/54 mmhg, AyU7=667.0 %, Resp=26 B/min 10:08 AM Jwire removed kkner 10:08 AM 0.035 260cm Glidewire wire [id number] kkallner 10:10 AM glide wire removed kk 10:10 AM Long J reinserted kkner 10:11 AM Catheter removed kk 10:11 AM Guide catheter reinserted kkallner 10:11 AM wire removed kkner 10:12 AM HR=53 bpm, GSVV=173/54 mmhg, HdQ5=069.0 %, Resp=20 B/min 10:12 AM .014 ChoICE PT Extra Support 300cm guide wire across target lesion- successful. reused? No kkallner 10:13 AM Recorded Pressure: Ao, HR=52, Condition=Condition 1 (Aorta) Ao 143/35/68 10:13 AM Coronary Dominance: right [email or web address] 10:14 AM 2.5mm x 16mm Synergy drug-eluting stent across target lesion- successful Lot #[id number] kkallner 10:16 AM Lesion found in Proximal LAD. Pre Stenosis: 80 Pre MEME Flow: 3: Complete and Brisk Flow/Perfusion kkallner 10:16 AM Lesion found in 2nd Marginal. Pre Stenosis: 90 Pre MEME Flow: [email or web address] 10:16 AM Lesion found in Proximal RCA. Pre Stenosis: 100 Pre MEME Flow: kkallner 10:16 AM Left Main Coronary Artery with 0% stenosis kkallner 10:16 AM Proximal Left Anterior Descending Coronary Artery with 80% stenosis. If graft is supplying this territory, 0 % stenosis. kkallner 10:16 AM Mid/Distal Left Anterior Descending Coronary Artery and diagonal branches with 0% stenosis. If graft is supplying this area, 0 % stenosis kkallner 10:16 AM Circumflex, Obtuse Marginal, Left Posterior Descending, and Left Posterolateral Coronary Arteries with 90 % stenosis. If graft is supplying this area, 0 % stenosis kkallner 10:17 AM Right Coronary, Right Posterior Descending Arteries with Right Posterolateral and Acute Marginal branches with 100 % stenosis. If graft is supplying this area, 0 % stenosis kkallner 10:17 AM Ramus with 0% stenosis. If graft is supplying this area, 0 % stenosis kkallner 10:17 AM Stent deployed @ 14 adelso for 20 seconds kkallner 10:17 AM Stent delivery system removed intact. [email or web address] 10:17 AM HR=53 bpm, HOYR=244/51 mmhg, JpW1=550.0 %, Resp=39 B/min 10:17 AM Time: 10:02 Patient comfortable and pain free: Yes kkall 10:17 AM Time: 10:02LOC: 4 = Oriented but drowsy kkallner 10:18 AM Guide wire removed intact. [email or web address] 10:19 AM Bolus angiogram of right Femoral complete: hand injected kkallner 10:20 AM Procedure completed at 10:20 kkallner 10:21 AM What is the NYHA Class? Class 2 [email or web address] 10:21 AM Did you address MEME flow and Dominance? Yes kkallner 10:22 AM Sign out completed: Radiation Dose 930.75 mGy Fluoro Time: 9.2 Isovue 370 - 200ml contrast 140 ml given by Matthew Escamilla DO. Complications: NoneCardiac Rehab Consult needed: YesConfirmed administered medications: Yes kkallner 10:22 AM Isovue 370 - 200ml,1 Bottle(s) used. [email or web address] 10:22 AM Sheath left in place to be pulled on floor/holding area kkallner 10:22 AM Estimated Blood Loss: less than 20cc kkallner 10:22 AM Post ECG Sinus Bradycardia kkallner 10:22 AM Post Blood Pressure 118/51 kkallner 10:24 AM Information taught Cardiac Cath and PCI kkallner 10:24 AM Education needs Procedure, Plan of Care, and Responsibilities of Patient in Care kkallner 10:24 AM Learning barriers :None kkallner 10:24 AM Education Methods Verbal kkallner 10:24 AM Education evaluation Able to repeat information kkallner 10:24 AM Site status slight Oozing around arterial sheath - Rt Groin as reported by Marjorie Palma RT (R) at 10:24 kkallner 10:25 AM Opsite applied kkallner 10:25 AM Plavix, Effient or Brilinta given No kkallner 10:25 AM Delay to floor No kkallner 10:25 AM Family placed in consult room. [email or web address] 10:25 AM Complications: None kkallner 10:25 AM Fluoro Time: 9.2 kkallner 10:25 AM Isovue 370 - 200ml contrast 140 ml given by Matthew Escamilla DO. [email or web address] 10:25 AM Radiation Dose 930.75 mGy kkallner 10:26 AM 10:25 Post Pulses Lt DP & PT 2+ kkallner 10:27 AM 10:26 Post Pulses Rt DP & PT 1+ kkallner 10:27 AM Patient out of room: 10:27 kkallner 10:32 AM Report given to Edwin LA Pt taken to Room #4. 10:32 kkallner 10:33 AM Time: 10:17LOC: 4 = Oriented but drowsy kkallner 10:33 AM Time: 10:17 Patient comfortable and pain free: Yes [email or web address] Complications Complication None None Hemodynamics Pressures Site Systolic/A Wave Diastolic/V Wave Mean AO 147 37 73 LV 137 1 11 LV 112 49 16 AO 128 35 65 AO 143 35 68 Post Procedure Information Blood Pressure: 118/51 mmHg Rhythm: Sinus Bradycardia Post procedural instructions were given Site Checks Time Location Status Staff Sheath In? Note 10:24 AM Rt Groin Oozing Marjorie Palma RT (R) Pulses Time Site Pre-Procedure Post-Procedure Note 10:25:00 AM Lt DP & PT 2+ 10:26:00 AM Rt DP & PT 1+ Updated by Theresa Velazquez RT (R) on 08/10/2017 10:34:00 AM electronically signed on 08/10/2017 10:34:38 AM with status of Final
[2017-08-10] MEDS ORDERED: 0.9 % Sodium Chloride 1,000 ML IVC SCH (10:45)
--- NOTE | 2017-08-10 10:51 | Internal Med Progress Note ---
Date of Encounter: 08/10/17 Time of Encounter: 10:49 - Assessment and plan (1) NSTEMI (non-ST elevated myocardial infarction) Current Visit: No Status: Acute Assessment and plan: Management per cardiology. left heart catheterization today. Heparin drip stopped per cardiology.. Continue with cardiac meds per cardiology. I see the patient is on aspirin and Plavix statin as well as a beta bess. She is also on Imdur. 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 Cardiology is following. She is being diuresed. She is net negative about 5 L for the state. An elevation of kidney function and believe it is best to hold Lasix today. Patient receiving 20 mg of IV Lasix twice a day. Monitor kidney function. Monitor I's and O's. Continue beta bess. Qualifiers: Congestive heart failure type: combined Qualified Code(s): I50.41 - Acute combined systolic (congestive) and diastolic (congestive) heart failure (3) Pneumonia Current Visit: Yes Status: Acute Assessment and plan: Cultures positive for strep allergies. Currently on doxycycline. We will talk to pharmacy about best option. Qualifiers: Pneumonia type: due to unspecified organism Laterality: unspecified laterality Lung location: unspecified part of lung Qualified Code(s): J18.9 - Pneumonia, unspecified organism (4) Long QT interval Current Visit: Yes Status: Acute Assessment and plan: Levaquin switch to Doxy on 08/08/2017. (5) COPD (chronic obstructive pulmonary disease) Current Visit: No Status: Acute Assessment and plan: I do not believe the patient is in a COPD exacerbation. Stopped IV steroids . Continue with nebulizers and inhalers. Qualifiers: COPD type: unspecified COPD Qualified Code(s): J44.9 - Chronic obstructive pulmonary disease, unspecified (6) Diabetes mellitus Current Visit: No Status: Acute Assessment and plan: Stopped insulin pump 08/08/2017. We will give 25 units of Levemir today. She did receive 20 units yesterday. Continue with 5 units of lispro with meals. We will continue with insulin sliding scale. Continue with Accu-Cheks. 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 Patient is also on Doxy (8) Tracheostomy in place Current Visit: No Status: Acute Assessment and plan: Stable. This is chronic. (9) DVT prophylaxis Current Visit: No Status: Acute Assessment and plan: heparin SQ - Subjective Interval history: Patient was seen and examined. She feels better. No chest pain. Has been afebrile. Plans for a left heart catheterization today. The patient was admitted with NSTEMI and is being treated for pneumonia as well as COPD exacerbation for which I felt the patient did not need steroids since I did not hear wheezes and I stopped her steroids 08/08/2017. Had elevated D dimers admission CTA ruled out a PE. Patient has a chronic trach. - Constitutional Vitals: Temp Pulse Resp BP Pulse Ox 97.5 F L 53 15 150/60 98 08/10/17 07:11 08/10/17 07:11 08/10/17 07:11 08/10/17 07:11 08/10/17 07:11 General appearance: Present: cooperative, mild distress, A&O X 3, answers questions appropriately Exam: GEN: NAD CVS: RRR. S1, S2, No m/r/g RESP: Diminished with coarse breath sounds almost throughout. ABD: Soft, NT, ND, +BS EXT: No edema. 2+ DP. No rashes NEURO: Quadriplegic Internal Medicine: Result - Labs CBC & Chem 7: 08/10/17 02:56 08/10/17 02:56 Labs: Short CBC 08/10/17 Range/Units 02:56 WBC 10.5 (4.3-11.1) K/mcL Hgb 9.7 L (11.5-15.4) g/dL Hct 31.0 L (35.3-44.9) % Plt Count 175 (140-400) K/mcL Neutrophils # 5.9 (1.6-8.9) K/mcL BMP 08/10/17 02:56 Sodium 142 Potassium 4.1 Chloride 104 Carbon Dioxide 30 H BUN 41 H Creatinine 1.36 H Glucose 210 H Calcium 8.3 L - ABG Interpretation ABG results: PT/INR, D-dimer PT 13.1 Seconds (9.4-12.1) H 08/06/17 16:57 Consult Discharge Plan - Plan Referrals: Roselia Andrews CNP [Advanced Practice Nurse] - 08/14/17 9:00 am Jerome Gonzales MD [Partnered Physician] - 09/04/17 8:15 am (please show up 15 mins early. Takw with you to your appointment Photo ID, insurance cards, and all medications)
[2017-08-10] MEDS: Furosemide 20 MG/2 ML VIAL IVP SCH (11:39)
[2017-08-10] MEDS: Insulin LISPRO 300 UNITS/3 ML VIAL SQ SCH ×7 (11:39→20:21)
[2017-08-10] MEDS: Insulin DETEMIR 100 UNIT/ML X5UNITS SQ SCH (15:10)
--- NOTE | 2017-08-10 17:09 | Electrocardiograph Report ---
[address] [place] [address] Test Date: 2017-08-09 Pat Name: Sera Valero Department: 110 Room: 2N04 Gender: F Stage Set Designer: : 1945 Requested By: Philippe Heck Order Number: [id number] Reading MD: Doug Peterson Measurements Intervals [place] Rate: 56 P: 53 VT: 148 QRS: 22 QRSD: 122 T: 200 QT: 549 QTc: 541 Interpretive Statements SINUS BRADYCARDIA POSSIBLE INFERIOR MYOCARDIAL INFARCTION, OF INDETERMINATE AGE ST DEVIATION AND MARKED T-WAVE ABNORMALITY, CONSIDER ANTEROLATERAL ISCHEMIA Prolonged QT interval Electronically Signed On 08-10-2017 17:07:42 EST by Doug Peterson
[2017-08-10] MEDS: Metoprolol 100 MG TABLET PO SCH (20:20)
[2017-08-11] MEDS: Ipratropium/Albuterol Neb 3 ML IH SCH ×4 (04:27→22:28)
[2017-08-11] MEDS: *HR* Heparin 5,000 UNIT/ML VIAL SQ SCH ×3 (04:37→22:07)
[2017-08-11 04:53] LABS: Basophils % 0.3 %; Eosinophils % 10.3 %; Hematocrit 28.6 % (35.3-44.9); Hemoglobin 9.1 g/dL (11.5-15.4); Immature Granulocytes % 0.5 % (0-4); Lymphocytes # 1.9 K/mcL (0.6-4.6); Lymphocytes % 19.1 %; Mean Corpuscular HGB Conc 31.8 g/dL (31.6-35.5); Mean Corpuscular Volume 94.4 fL (83.0-100.0); Mean Platelet Volume 11.6 fL (9.4-12.4); Monocytes # 0.9 K/mcL (0.0-1.3); Monocytes % 8.8 %; Platelet Count 174 K/mcL (140-400); Red Blood Count 3.03 M/mcL (3.82-4.97); Red Cell Distribution Width 13.4 % (11.5-14.5)
[2017-08-11 05:01] LABS: BUN/Creatinine Ratio 34 (6-26); Blood Urea Nitrogen 32 mg/dL (8-23); Calcium 8.2 mg/dL (8.6-10.3); Carbon Dioxide 32 mEq/L (23-29); Chloride 108 mEq/L (98-107); Glucose 110 mg/dL (70-105); Magnesium 1.7 mg/dL (1.6-2.6); Osmolality,Calculated 304 (280-300); Sodium 143 mEq/L (136-145); eGFR For African Americans > 60 (> 60); eGFR For Non-African Americans 58 (> 60)
[2017-08-11] MEDS: Insulin LISPRO 300 UNITS/3 ML VIAL SQ SCH ×6 (08:08→22:23)
[2017-08-11] MEDS: Insulin DETEMIR 100 UNIT/ML X5UNITS SQ SCH (08:09)
[2017-08-11] MEDS: Gabapentin 100 MG CAPSULE PO SCH ×2 (08:09→22:06)
[2017-08-11] MEDS: Isosorbide MONOnitrate (24 HR) 60 MG TAB.ER.24H PO SCH ×2 (08:10→22:05)
[2017-08-11] MEDS: Aspirin Enteric Coated 81 MG Tablet PO SCH (08:10)
[2017-08-11] MEDS ORDERED: Ondansetron ODT 4 MG TAB.RAPDIS SL PRN (08:33)
--- NOTE | 2017-08-11 09:42 | Cardiology Progress Note ---
Date of Encounter: 08/11/17 Time of Encounter: 08:50 Assessment and Plan (1) NSTEMI (non-ST elevated myocardial infarction) Current Visit: No Status: Acute Troponins 0.06, 4.04, 12.45, 21.75. EKG with more pronounced/deeper T wave inversions in anterolateral leads. Of note, pt had NSTEMI with peak troponin of 21.74 05/18/17. She underwent [facility] at that time showing severe 3 vessel CAD, no intervention and medical management was recommended. Echo 05/2017 EF was preserved. Repeat echo during this stay LVEF mildly reduced 45-50%. Low normal to mild global LV systolic dysfunction. There are no new regional variations when compared to prior echo, 05/19/2017. Severe diastolic dysfunction with restrictive physiology. Normal right ventricular structure and function. Mild MR and TR. Mild pulmonary hypertension. [facility] 08/09/17: s/p successful PTCA/ANASTASIYA to pLAD (with thrombus), known severe small 3vCAD. EF 45% Continue DAPT uninterrupted for at least 1 year (asa, plavix); continue statin, BB, nitrates. Cardiac rehab. Follow-up with [facility] in 1-2 weeks. (2) CAD (coronary artery disease) Current Visit: No Status: Acute Prior CABG and PCI. As above, [facility] 05/2017 severe 3 vessel disease without intervention, medical management was recommended. [facility] 08/10/17 s/p PCI to pLAD (with thrombus). ASA, Plavix, Statin, BB. Restart ACEi by d/c if able. Qualifiers: Coronary Disease-Associated Artery/Lesion type: unspecified vessel or lesion type [place] vs. transplanted heart: [place] heart Associated angina: angina presence unspecified Qualified Code(s): I25.10 - Atherosclerotic heart disease of [place] coronary artery without angina pectoris (3) Acute CHF Current Visit: Yes Status: Acute Echo EF 45-50%, mild global systolic dysfunction. Severe diastolic dysfunction with restrictive physiology. Currently on Lasix 20mg IV BID. Cumulative net negative -4554mL during stay. Respiratory status has improved with diuresis. Creatinine has improved with decrease in Lasix. Recommend strict I/Os, Na and fluid restriction, daily weights. Will need maintenance PO Lasix at discharge. Qualifiers: Congestive heart failure type: combined Qualified Code(s): I50.41 - Acute combined systolic (congestive) and diastolic (congestive) heart failure (4) Long QT interval Current Visit: Yes Status: Acute QT/QTc interval increased. EKG 08/06 showed QT/QTc of 456/483ms. EKG 08/08/17 QT/ QTc 620/606ms. Pt was on Levaquin. Discussed with hospitalist, switched to a different antibiotic that is not QT prolonging, now on Augmentin. Repeat ECG today. Discussion w patient/family: The assessment and plan as outlined above was discussed with the patient and/or family members who expressed understanding and agreement. All questions were answered. Thank you for involving us in the care of your patient. Please call with any questions. The patient will be discussed and reviewed with Dr. Doug Peterson; changes to be made accordingly. Subjective Principal diagnosis: NSTEMI Interval history: Seen and examined. Patient reports chest discomfort this AM, different than any other CP, non- radiating and has been constant overnight. Of note, bedside RN reports patient has not c/o pain. No issues with cath site. Shortness of breath at baseline. Objective Vital Signs, Last 4 Hours Temp Pulse Resp BP Pulse Ox 08/11/17 07:09 98.1 F 75 15 153/53 97 General: Conversant HEENT: Atraumatic, Normocephaly, Other (trach collar) Cardiac: Reg Rate and Rhythm, Normal S1 and S2 Lungs: Other (Decreased) Neuro: Alert and responsive Abdomen: Soft Skin: No rashes noted on visualized skin Musculoskeletal: No Chest Wall Tenderness Extremities: Other (generalized edema ) Results 08/11/17 04:30 08/11/17 04:30 Lab Results 08/11/17 08/11/17 04:30 04:30 WBC 9.9 Hgb 9.1 L Hct 28.6 L Plt Count 174 Sodium 143 Potassium 4.0 Chloride 108 H Carbon Dioxide 32 H BUN 32 H Creatinine 0.95 Glucose 110 H Calcium 8.2 L Magnesium 1.7 Active Medications Albuterol/Ipratropium (Duoneb) 3 ml IH [id number] [facility] PRN Reason: Protocol Stop: 02/05/18 16:46 Last Admin: 08/11/17 04:27 Dose: 3 ml Amoxicillin/Clavulanate Potassium (Augmentin) 875 mg PO BID [facility] Stop: 08/15/17 09:01 Last Admin: 08/11/17 08:10 Dose: 875 mg Aspirin (Aspirin Ec) 81 mg PO DAILY [facility] Stop: 02/10/18 09:01 Last Admin: 08/11/17 08:10 Dose: 81 mg Atorvastatin Calcium (Lipitor) 40 mg PO HS [facility] Stop: 02/05/18 21:01 Last Admin: 08/10/17 20:20 Dose: 40 mg Clopidogrel Bisulfate (Plavix) 75 mg PO DAILY [facility] Stop: 02/06/18 09:01 Last Admin: 08/11/17 08:10 Dose: 75 mg Dextrose/Water (Dextrose 50% (Syg)) 25 ml IVP AD PRN PRN Reason: Hypoglycemia Stop: 02/05/18 16:56 Furosemide (Lasix) 20 mg IVP BIDDIURETIC [facility] Stop: 02/08/18 09:01 Last Admin: 08/10/17 11:39 Dose: Not Given Gabapentin (Neurontin) 100 mg PO BID [facility] Stop: 02/05/18 21:01 Last Admin: 08/11/17 08:09 Dose: 100 mg Glucagon (Glucagen) 1 mg IM ONCE PRN PRN Reason: Hypoglycemia Stop: 02/05/18 16:56 Glucose (Gluctose) 15 gm PO ONCE PRN PRN Reason: Hypoglycemia Stop: 02/05/18 16:56 Glucose (Gluctose) 30 gm PO ONCE PRN PRN Reason: Hypoglycemia Stop: 02/05/18 16:56 Heparin Sodium (Porcine) (Heparin) 5,000 unit SQ Q8HCO [facility] Stop: 02/08/18 14:01 Last Admin: 08/11/17 04:37 Dose: 5,000 unit Dextrose (Dextrose 5%) 1,000 mls @ 100 mls/hr IVC .Q10H PRN PRN Reason: HYPOGLYCEMIA Stop: 02/05/18 16:56 Sodium Chloride (0.9 % Sodium Chloride) 1,000 mls @ 100 mls/hr IVC .Q10H [facility] Stop: 02/09/18 10:46 Last Infusion: 08/11/17 04:54 Dose: Infused Insulin Detemir (Levemir) 25 unit SQ DAILY [facility] Stop: 02/09/18 11:01 Last Admin: 08/11/17 08:09 Dose: 25 unit Insulin Human Lispro (Humalog) 0 units SQ TIDAC [facility] PRN Reason: Protocol Stop: 02/06/18 07:31 Last Admin: 08/11/17 08:09 Dose: Not Given Insulin Human Lispro (Humalog) 0 units SQ HS [facility] PRN Reason: Protocol Stop: 02/05/18 21:01 Last Admin: 08/10/17 20:21 Dose: Not Given Insulin Human Lispro (Humalog) 5 units SQ TIDWM [facility] Stop: 02/08/18 12:01 Last Admin: 08/11/17 08:08 Dose: 5 units Isosorbide Mononitrate (Imdur) 60 mg PO BID [facility] Stop: 02/05/18 21:01 Last Admin: 08/11/17 08:10 Dose: 60 mg Lorazepam (Ativan) 0.5 mg IVP Q4HR PRN PRN Reason: Anxiety Stop: 02/05/18 20:01 Last Admin: 08/10/17 20:20 Dose: 0.5 mg Metoprolol Tartrate (Lopressor) 100 mg PO [facility] Stop: 02/05/18 21:01 Last Admin: 08/10/17 20:20 Dose: 100 mg Metoprolol Tartrate (Lopressor) 50 mg PO DAILY [facility] Stop: 02/06/18 09:01 Last Admin: 08/11/17 08:10 Dose: 50 mg Naloxone HCl (Narcan) 0.4 mg IVP Q2MIN PRN PRN Reason: Opioid Reversal Stop: 02/05/18 16:42 Ondansetron HCl (Zofran Odt) 4 mg SL Q4HR PRN PRN Reason: Nausea And Vomiting Stop: 02/10/18 08:34 Oxycodone HCl (Roxicodone) 5 mg PO Q6HR PRN PRN Reason: Moderate Pain (4-6) Stop: 02/05/18 16:42 Last Admin: 08/11/17 03:03 Dose: 5 mg Ropinirole HCl (Requip) 3 mg PO [facility] Stop: 02/05/18 21:01 Last Admin: 08/10/17 20:20 Dose: 3 mg - Imaging and Cardiology Echo: report reviewed Cardiac cath: report reviewed Other Results: 12 hour tele: avg HR=62. - EKG Interpretation EKG results cardiology: personally reviewed Consult Discharge Plan - Plan Referrals: Roselia Andrews, VASCULAR PHYSICIAN [Advanced Practice Nurse] - 08/14/17 9:00 am Jerome Gonzales MD [Partnered Physician] - 09/04/17 8:15 am (please show up 15 mins early. Takw with you to your appointment Photo ID, insurance cards, and all medications)
--- NOTE | 2017-08-11 11:10 | Internal Med Progress Note ---
Date of Encounter: 08/11/17 Time of Encounter: 11:10 - Assessment and plan (1) NSTEMI (non-ST elevated myocardial infarction) Current Visit: No Status: Acute Assessment and plan: Management per cardiology. Has post drug-eluting stent to the proximal LAD. Continue with cardiac meds per cardiology. I see the patient is on aspirin and Plavix statin as well as a beta bess. She is also on Imdur. 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 Cardiology is following. Diuresis while this hospitalization. She is net negative about 4.4 L for the stay. Continued on Lasix. Kidney function is improving.. Patient was receiving 20 mg of IV Lasix twice a day. Monitor kidney function. Monitor I's and O's. Continue beta bess. Qualifiers: Qualified Code(s): I50.41 - Acute combined systolic (congestive) and diastolic (congestive) heart failure (3) Pneumonia Current Visit: Yes Status: Acute Assessment and plan: Cultures positive for group A strep. Doxy switched to Augmentin. Qualifiers: Qualified Code(s): J18.9 - Pneumonia, unspecified organism (4) Long QT interval Current Visit: Yes Status: Acute Assessment and plan: Levaquin switch to Doxy on 08/08/2017. (5) COPD (chronic obstructive pulmonary disease) Current Visit: No Status: Acute Assessment and plan: I do not believe the patient is in a COPD exacerbation. Stopped IV steroids . Continue with nebulizers and inhalers. Qualifiers: Qualified Code(s): J44.9 - Chronic obstructive pulmonary disease, unspecified (6) Diabetes mellitus Current Visit: No Status: Acute Assessment and plan: Stopped insulin pump 08/08/2017. Continue with 25 units of Levemir today. Continue with 5 units of lispro with meals. We will continue with insulin sliding scale. Continue with Accu-Cheks. Qualifiers: Qualified Code(s): E13.8 - Other specified diabetes mellitus with unspecified complications; Z79.4 - electro winning operator (current) use of insulin; Z79.4 - electro winning operator (current) use of insulin; Z79.4 - penitentiary (current) use of insulin; Z79.4 - electro winning operator (current) use of insulin (7) Tracheitis Current Visit: No Status: Acute Assessment and plan: Supportive care. Patient is also on Augmentin (8) Tracheostomy in place Current Visit: No Status: Acute Assessment and plan: Stable. This is chronic. (9) DVT prophylaxis Current Visit: No Status: Acute Assessment and plan: heparin SQ - Subjective Interval history: Patient was seen and examined. She had a drug-eluting stent placed to the proximal LAD yesterday. She had some chest pain this morning however EKGs looked unremarkable. She feels lethargic and is somewhat nauseated however she had no vomiting. She feels more comfortable if she stayed another night in the hospital. Has been afebrile. The patient was admitted with NSTEMI and is being treated for pneumonia as well as COPD exacerbation for which I felt the patient did not need steroids since I did not hear wheezes and I stopped her steroids 08/08/2017. Had elevated D dimers admission CTA ruled out a PE. Patient has a chronic trach. - Constitutional Vitals: Temp Pulse Resp BP Pulse Ox 98.1 F 75 15 153/53 97 08/11/17 07:09 08/11/17 07:09 08/11/17 07:09 08/11/17 07:09 08/11/17 07:09 General appearance: Present: cooperative, mild distress, A&O X 3, answers questions appropriately Exam: GEN: NAD CVS: RRR. S1, S2, No m/r/g RESP: Diminished with coarse breath sounds almost throughout. ABD: Soft, NT, ND, +BS EXT: No edema. 2+ DP. No rashes NEURO: Quadriplegic Internal Medicine: Result - Labs CBC & Chem 7: 08/11/17 04:30 08/11/17 04:30 Labs: Short CBC 08/11/17 Range/Units 04:30 WBC 9.9 (4.3-11.1) K/mcL Hgb 9.1 L (11.5-15.4) g/dL Hct 28.6 L (35.3-44.9) % Plt Count 174 (140-400) K/mcL Neutrophils # 6.0 (1.6-8.9) K/mcL BMP 08/11/17 04:30 Sodium 143 Potassium 4.0 Chloride 108 H Carbon Dioxide 32 H BUN 32 H Creatinine 0.95 Glucose 110 H Calcium 8.2 L - ABG Interpretation ABG results: PT/INR, D-dimer PT 13.1 Seconds (9.4-12.1) H 08/06/17 16:57 Consult Discharge Plan - Plan Referrals: Roselia Andrews CNP [Advanced Practice Nurse] - 08/14/17 9:00 am Jerome Gonzales MD [Partnered Physician] - 09/04/17 8:15 am (please show up 15 mins early. Takw with you to your appointment Photo ID, insurance cards, and all medications)
--- NOTE | 2017-08-11 18:11 | Electrocardiograph Report ---
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
[2017-08-11] MEDS: Metoprolol 100 MG TABLET PO SCH (22:05)
[2017-08-11] MEDS: *HR* LORazepam 2 MG/ML VIAL IVP PRN ×2 (22:31→22:38)
[2017-08-12] MEDS: Ipratropium/Albuterol Neb 3 ML IH SCH ×2 (04:30→10:07)
[2017-08-12] MEDS: *HR* Heparin 5,000 UNIT/ML VIAL SQ SCH (05:25)
[2017-08-12 05:44] LABS: Basophils % 0.3 %; Eosinophils % 9.2 %; Hematocrit 27.2 % (35.3-44.9); Hemoglobin 8.8 g/dL (11.5-15.4); Immature Granulocytes % 0.9 % (0-4); Lymphocytes # 1.8 K/mcL (0.6-4.6); Lymphocytes % 17.2 %; Mean Corpuscular HGB Conc 32.4 g/dL (31.6-35.5); Mean Corpuscular Hemoglobin 30.4 pg (28.0-33.3); Mean Corpuscular Volume 94.1 fL (83.0-100.0); Mean Platelet Volume 11.5 fL (9.4-12.4); Monocytes # 0.9 K/mcL (0.0-1.3); Monocytes % 8.4 %; Neutrophils # 6.8 K/mcL (1.6-8.9); Platelet Count 151 K/mcL (140-400); Red Blood Count 2.89 M/mcL (3.82-4.97); Red Cell Distribution Width 13.5 % (11.5-14.5)
[2017-08-12 06:06] LABS: BUN/Creatinine Ratio 32 (6-26); Blood Urea Nitrogen 26 mg/dL (8-23); Calcium 8.4 mg/dL (8.6-10.3); Carbon Dioxide 31 mEq/L (23-29); Chloride 108 mEq/L (98-107); Glucose 155 mg/dL (70-105); Osmolality,Calculated 300 (280-300); Sodium 141 mEq/L (136-145); eGFR For African Americans > 60 (> 60); eGFR For Non-African Americans > 60 (> 60)
[2017-08-12 07:35] VITALS: BP 155/51
--- NOTE | 2017-08-12 09:02 | Discharge Summary ---
Date of Encounter: 08/12/17 Time of Encounter: 09:00 - Discharge Diagnosis (1) NSTEMI (non-ST elevated myocardial infarction) Priority: Primary Status: Acute (2) Acute CHF Priority: Primary Status: Acute Qualifiers: Congestive heart failure type: combined Qualified Code(s): I50.41 - Acute combined systolic (congestive) and diastolic (congestive) heart failure (3) Pneumonia Priority: Primary Status: Acute Qualifiers: Pneumonia type: due to unspecified organism Laterality: unspecified laterality Lung location: unspecified part of lung Qualified Code(s): J18.9 - Pneumonia, unspecified organism (4) Long QT interval Priority: Primary Status: Acute (5) COPD (chronic obstructive pulmonary disease) Priority: Secondary Status: Acute Qualifiers: COPD type: unspecified COPD Qualified Code(s): J44.9 - Chronic obstructive pulmonary disease, unspecified (6) Diabetes mellitus Priority: Secondary Status: Acute Qualifiers: Diabetes mellitus type: other specified (including NGUYEN) Diabetes mellitus complication status: with unspecified complications Diabetes mellitus halfway insulin use: with intermediate card tender use Qualified Code(s): E13.8 - Other specified diabetes mellitus with unspecified complications; Z79.4 - correction ( current) use of insulin; Z79.4 - correction (current) use of insulin; Z79.4 - correction (current) use of insulin; Z79.4 - moth exterminator (current) use of insulin (7) Tracheitis Priority: Primary Status: Acute (8) Tracheostomy in place Priority: Secondary Status: Acute - Discharge Medications Prescriptions: Amoxicillin/Clavulanate [Augmentin] 875 mg PO BID #10 tablet Aspirin Enteric Coated [Aspirin EC] 81 mg PO DAILY #30 tablet.dr Furosemide [Lasix] 20 mg PO DAILY PRN #30 tablet PRN Reason: Edema Home Medications: Atorvastatin [Lipitor] 40 mg PO HS 03/22/16 [History] Clopidogrel [Plavix] 75 mg PO DAILY 03/22/16 [History] Isosorbide MONOnitrate (24 HR) [Imdur] 60 mg PO BID 03/22/16 [History] Metoprolol [Lopressor] 100 mg PO HS 03/22/16 [History] Guaifenesin [Mucinex] 600 mg PO BID PRN #60 tab.er.12h 05/20/17 [Rx] Lisinopril [Zestril] 10 mg PO DAILY #30 tablet 05/20/17 [Rx] Gabapentin [Neurontin] 100 mg PO TID 08/06/17 [History] HydrOXYzine 10 mg PO HS 08/06/17 [History] Metoprolol Tartrate [Lopressor] 50 mg PO DAILY 08/06/17 [History] Subcutaneous Insulin Pump [T:Slim] 1 each MC DAILY 08/06/17 [History] rOPINIRole [Requip] 3 mg PO HS 08/06/17 [History] Amoxicillin/Clavulanate [Augmentin] 875 mg PO BID #10 tablet 08/12/17 [Rx] Aspirin Enteric Coated [Aspirin EC] 81 mg PO DAILY #30 tablet. 08/12/17 [Rx] Furosemide [Lasix] 20 mg PO DAILY PRN #30 tablet 08/12/17 [Rx] Allergies/Adverse Reactions: 3 Allergy/AdvReac Type Severity Reaction Status Date / Time cephalexin [From Keflex] Allergy Rash Verified 08/09/16 12:19 latex Allergy Rash Verified 08/09/16 12:19 morphine Allergy Confusion Verified 08/09/16 12:19 ibuprofen AdvReac Confusion Verified 08/09/16 12:19 metal Allergy Rash Uncoded 03/22/16 15:13 Procedures/tests Complete & Pending: Procedures Performed prior 72 hours Category Date Time Status CL Cardiac Catheterization [CL] Routine Armhole Baster Hand 08/09/17 13:38 Completed ECG 12 lead ECG [ECG] Routine Y 08/11/17 09:31 Completed Date of admission: 08/06/17 14:53 Primary care physician: Tera Mcintosh MD Consults: 08/06/17 20:42 Consult to Cardiology [CONS] Routine Comment: Consulting Provider: Cardiology Katie Reason for Consult: Non-STEMI Call Completed: No 08/08/17 21:34 Consult to Pastoral Services [CONS] Stat Comment: Needs spiritual guidance 08/09/17 10:40 Consult to Occupational Therapy [CONS] Routine Comment: Evaluate, develop and implement POC Reason for Consult: therapy/placement needs Consult to Physical Therapy [CONS] Routine Comment: Evaluate, develop and implement POC Reason for Consult: PT eval 08/10/17 10:33 Consult to Cardiac Rehabilitation-Phase1 [CONS] Routine Comment: Reason for Consult: NSTEMI, PCI Call Completed: No - Patient Status Disposition: Home, Self-Care Condition: Fair Overall status at discharge: patient is progressing back to baseline - Discharge Instructions Instructions: Amoxicillin/Clavulanate Potassium (By mouth), Myocardial Infarction (DC), Heart Failure (DC) Follow Up With: Roselia Andrews CNP [Advanced Practice Nurse] - 08/14/17 9:00 am Jerome Gonzales MD [Partnered Physician] - 09/04/17 8:15 am (please show up 15 mins early. Takw with you to your appointment Photo ID, insurance cards, and all medications) Jeremie Ray DO [Partnered Physician] - (Make a follow up appointment for within 2 weeks.) Additional Instructions: take lasix only when you weigh more than 194 Ibs in the morning - Diet and Activity Activity: increase activity as tolerated, wear oxygen at all times Diet: diabetic diet, low salt diet Hospital course: Ms. Valero is a 72 year old female with a past medical history of chronic respiratory failure and tracheostomy, discharged from this hospital in May where she was treated for non-STEMI and underwent a cardiac catheterization showing three-vessel disease, no stents were placed and medical management was advised with Plavix, also history of diabetes type 2 insulin-dependent, neuropathy, COPD oxygen dependent on 3-6 L continuously, came to [facility] ER complaining of severe difficulty breathing and bringing up yellowish phlegm in large amounts from her tracheostomy. Initial pH on the ABG was 7.16 PCO2 was 89 PCO2 was 61. Troponin was 0.06 but she is denying any chest pain, BNP is 813 , d-dimer was 1725, no CT angiogram chest has been performed but the patient was started on heparin. Later interested in CTA was done and was negative for PE. She was transferred to [facility] and was admitted under the hospitalist service with consult to cardiology given her elevated troponins. She had findings of CHF and was diuresed. She eventually was taken for left heart catheterization and underwent drug-eluting stenting to the proximal LAD. She was also started on IV antibiotics initially for suspected pneumonia and switched to Augmentin given the fact that she grew group A strep. She was maximized cardiac meds and was discharged on 08/12/2017. She will follow up with audiology and her PCP. - Time Spent with Patient Total time spent providing and/or coordinating discharge services: Greater than 30 minutes - Constitutional Vitals: Temp Pulse Resp BP Pulse Ox 98.0 F 64 18 155/51 99 08/12/17 07:27 08/12/17 07:27 08/12/17 07:27 08/12/17 07:27 08/12/17 07:27 General appearance: Present: cooperative, mild distress, A&O X 3, answers questions appropriately Exam: GEN: NAD CVS: RRR. S1, S2, No m/r/g RESP: CTAB ABD: Soft, NT, ND, +BS EXT: No edema. 2+ DP. No rashes NEURO: Quadriplegic
[2017-08-12] MEDS: Insulin LISPRO 300 UNITS/3 ML VIAL SQ SCH ×3 (09:20→09:22)
[2017-08-12] MEDS: Aspirin Enteric Coated 81 MG Tablet PO SCH (09:21)
[2017-08-12] MEDS: Isosorbide MONOnitrate (24 HR) 60 MG TAB.ER.24H PO SCH (09:21)
[2017-08-12] MEDS: Gabapentin 100 MG CAPSULE PO SCH (09:21)
[2017-08-12] MEDS: Insulin DETEMIR 100 UNIT/ML X5UNITS SQ SCH (09:23)
--- NOTE | 2017-08-12 10:44 | Physician Discharge Referral ---
- Diagnosis (1) NSTEMI (non-ST elevated myocardial infarction) Priority: Primary Status: Acute (2) Acute CHF Priority: Primary Status: Acute (3) Pneumonia Priority: Primary Status: Acute (4) Long QT interval Priority: Primary Status: Acute (5) COPD (chronic obstructive pulmonary disease) Priority: Secondary Status: Acute (6) Diabetes mellitus Priority: Secondary Status: Acute (7) Tracheitis Priority: Primary Status: Acute (8) Tracheostomy in place Priority: Secondary Status: Acute - Respiratory Orders Smoking Cessation: Smoking cessation has been advised. For more information, call the [place] Tobacco Quit Line at 6-721-EQZJ-NOW. - Services Needed Following services are medically necessary services: Home Health Aide - Transfer Medications Prescriptions: Amoxicillin/Clavulanate [Augmentin] 875 mg PO BID #10 tablet Aspirin Enteric Coated [Aspirin EC] 81 mg PO DAILY #30 tablet. Furosemide [Lasix] 20 mg PO DAILY PRN #30 tablet PRN Reason: Edema Home Medications: Atorvastatin [Lipitor] 40 mg PO HS 03/22/16 [History] Clopidogrel [Plavix] 75 mg PO DAILY 03/22/16 [History] Isosorbide MONOnitrate (24 HR) [Imdur] 60 mg PO BID 03/22/16 [History] Metoprolol [Lopressor] 100 mg PO HS 03/22/16 [History] Guaifenesin [Mucinex] 600 mg PO BID PRN #60 tab.er.12h 05/20/17 [Rx] Lisinopril [Zestril] 10 mg PO DAILY #30 tablet 05/20/17 [Rx] Gabapentin [Neurontin] 100 mg PO TID 08/06/17 [History] HydrOXYzine 10 mg PO HS 08/06/17 [History] Metoprolol Tartrate [Lopressor] 50 mg PO DAILY 08/06/17 [History] Subcutaneous Insulin Pump [T:Slim] 1 each MC DAILY 08/06/17 [History] rOPINIRole [Requip] 3 mg PO HS 08/06/17 [History] Amoxicillin/Clavulanate [Augmentin] 875 mg PO BID #10 tablet 08/12/17 [Rx] Aspirin Enteric Coated [Aspirin EC] 81 mg PO DAILY #30 tablet. 08/12/17 [Rx] Furosemide [Lasix] 20 mg PO DAILY PRN #30 tablet 08/12/17 [Rx] Allergies/Adverse Reactions: 3 Allergy/AdvReac Type Severity Reaction Status Date / Time cephalexin [From Keflex] Allergy Rash Verified 08/09/16 12:19 latex Allergy Rash Verified 08/09/16 12:19 morphine Allergy Confusion Verified 08/09/16 12:19 ibuprofen AdvReac Confusion Verified 08/09/16 12:19 metal Allergy Rash Uncoded 03/22/16 15:13 Certification: Further, I certify that my clinical findings support that this patient is homebound (i.e. absences from home require considerable and taxing effort and are for medical reasons or mandaeism services or infrequently or short duration when for other reasons) because: Homebound Reason: Patient requires assistance of a person or device to safely leave home Attestation: My signature below is to certify that this patient is under my care and that I, or nurse practitioner, or a physician's medical practice assistant working with me, has a face-to -face encounter with this patient.
== END 2017-08-12 13:06 | disposition home or self-care (01) | DRG 246 ==
LOC: 2NNU 14:53
PROVIDERS: ADMIT Internal Medicine; ATTEND Internal Medicine

== ENCOUNTER 2017-08-19 01:23 | Inpatient (IN) ==
[2017-08-19] MEDS ORDERED: *HR* Metoprolol 5 MG/5 ML VIAL IVP ONE ×2 (03:33→03:35)
[2017-08-19] MEDS ORDERED: Naloxone 0.4 MG/ML INJ IVP PRN (03:45)
--- NOTE | 2017-08-19 03:58 | Internal Med History&Physical ---
Date of Encounter: 08/19/17 Time of Encounter: 03:52 Assessment and Plan (1) Acute respiratory failure with hypoxia and hypercapnia Current visit: No Status: Acute could be 2/2 acute on chronic systolic CHF. Trial of lasix IV, I&Os will also check NC-CT chest to r/o infiltrates check RVP tele, pulse ox close monitoring check RVP (2) Acute CHF Current visit: No Status: Acute trial of IV lasix wean oxygen as able investigate alternate etiology Qualifiers: Heart failure type: combined systolic and diastolic Qualified Code(s): I50.9 - Heart failure, unspecified (3) Elevated troponin I measurement Current visit: No Status: Acute EKG suspicious for demand ischemia. Will add beta bess to bring tachycardia rate down continue cardiac med trend cardiology to follow (4) CAD (coronary artery disease) Current visit: No Status: Acute multi-vessel disease medical management Qualifiers: Coronary Disease-Associated Artery/Lesion type: unspecified vessel or lesion type [place] vs. transplanted heart: [place] heart Associated angina: angina presence unspecified Qualified Code(s): I25.10 - Atherosclerotic heart disease of [place] coronary artery without angina pectoris (5) Diabetes mellitus Current visit: No Status: Acute continue insulin pump check AC/HS glucose for insulin monitoring Qualifiers: Diabetes mellitus type: other specified (including NGUYEN) Diabetes mellitus complication status: with unspecified complications Diabetes mellitus technical support director insulin use: with technical support director use Qualified Code(s): E13.8 - Other specified diabetes mellitus with unspecified complications; Z79.4 - assisted ( current) use of insulin; Z79.4 - radio disc jockey (current) use of insulin; Z79.4 - radio disc jockey (current) use of insulin; Z79.4 - radio disc jockey (current) use of insulin Internal Medicine - H&P: HPI Chief complaint: SOB, left side of lung pain History of present illness: Ms. Valero is a 72 year old female PMH chronic respiratory failure 2/2 tracheal stenosis with prior prolonged ETT and is s/p tracheostomy baseline 5 L NC, CAD s /p CABG 1997, NSTEMI 05/2017, and most recently [facility] with multi-vessel disease s /p ANASTASIYA to proximal LAD approx 1 week ago who was discharged for an admission for CHF and had also received empiric augmentin therapy for PNA. She represents for acute on chronic worsening of SOB associated with left flank discomfort. She has been on home approx 6 days and is on prn lasix 20mg QD when her weight is > 189 lb. She has taken appprox 3 days of lasix since returning home. She has been feeling lousy in the last few days and had received empiric macrobid from her PCP for empiric UTI therapy ??. She has also completed 5 days worth of augmentin on discharge. This evening, she developed SOB that has been worse and had to increase her oxygen to 7 L (from 5 L baseline). Her HR was noted to be in in 130s which prompted ED visit. EKG personally reviewed with rate 142, T wave depression along lateral leads XR/XR chest 1V portable IMPRESSION: Cardiomegaly with diffuse pulmonary edema and small to moderate layering bilateral pleural effusions in keeping with congestive heart failure. Overall, findings are not appreciably changed since 07/29/2017. Past Med Surg Social Fam HX - Past Medical History Medical history: CHF, coronary artery disease, diabetes, hyperlipidemia, hypertension, other Psychiatric history: anxiety - Past Surgical History Surgical History: angioplasty/stent, cholecystectomy, coronary bypass (CABG), hysterectomy, orthopedic, other, other - Social History Smoking Status: Former smoker Smokeless Tobacco Status: No Alcohol use: rarely Drug use: none - Family History Mother Family Member Ethnicity: Non- Living Status: Age at : 72 Hx Family Cardiac Disorders: Yes Hx Family Endocrine Disorder: Yes Internal Medicine - H&P: Meds Atorvastatin [Lipitor] 40 mg PO HS 03/22/16 [History] Clopidogrel [Plavix] 75 mg PO DAILY 03/22/16 [History] Isosorbide MONOnitrate (24 HR) [Imdur] 60 mg PO BID 03/22/16 [History] Metoprolol [Lopressor] 100 mg PO HS 03/22/16 [History] Guaifenesin [Mucinex] 600 mg PO BID PRN #60 tab.er.12h 05/20/17 [Rx] Lisinopril [Zestril] 10 mg PO DAILY #30 tablet 05/20/17 [Rx] Gabapentin [Neurontin] 100 mg PO TID 08/06/17 [History] HydrOXYzine 10 mg PO HS 08/06/17 [History] Metoprolol Tartrate [Lopressor] 50 mg PO DAILY 08/06/17 [History] Subcutaneous Insulin Pump [T:Slim] 1 each MC DAILY 08/06/17 [History] rOPINIRole [Requip] 3 mg PO HS 08/06/17 [History] Amoxicillin/Clavulanate [Augmentin] 875 mg PO BID #10 tablet 08/12/17 [Rx] Aspirin Enteric Coated [Aspirin EC] 81 mg PO DAILY #30 tablet. 08/12/17 [Rx] Furosemide [Lasix] 20 mg PO DAILY PRN #30 tablet 08/12/17 [Rx] 3 Allergy/AdvReac Type Severity Reaction Status Date / Time cephalexin [From Keflex] Allergy Rash Verified 08/09/16 12:19 latex Allergy Rash Verified 08/09/16 12:19 morphine Allergy Confusion Verified 08/09/16 12:19 ibuprofen AdvReac Confusion Verified 08/09/16 12:19 metal Allergy Rash Uncoded 03/22/16 15:13 All Systems PM: A 10-system review of systems was performed and is negative for pertinent findings except as documented above in the HPI. Review of systems: ROS 14 point review of systems reviewed as best as possible given presentation. Pertinent positive or negative as per HPI or otherwise reviewed as negative - Constitutional Vitals: Temp Pulse Resp BP Pulse Ox 98.8 F 104 30 153/54 100 08/19/17 03:00 08/19/17 03:00 08/19/17 03:00 08/19/17 03:00 08/19/17 03:00 Exam: General - AAO x 3 Psych - Appropriate affect/speech. No agitation Eyes - HELENA. Eye lids intact. No scleral icterus Neuro - No gross peripheral or central neuro deficits on inspection Heart - Sinus. RRR. S1 and S2 present. No added HS/murmurs appreciated. No elevated JVD appreciated. Lung - Trach with CHAITANYA. Adequate air entry b/l, Diffuse crackles bibasally. No wheezes appreciated GI - Soft, non-tender. No hepatosplenomegaly/ascites. BS+ - No CVA/suprapubic tenderness or palpable bladder distension Skin - Intact. No rash/petechiae/ecchymosis. Warm extremities. Trace b/l LE edema
[2017-08-19] MEDS: Furosemide 40 MG/4 ML VIAL IVP SCH ×2 (04:51→17:09)
[2017-08-19] MEDS ORDERED: *HR* Enoxaparin 30 MG/0.3 ML SYRINGE SQ SCH (06:00)
[2017-08-19 07:49] LABS: Basophils % 0.2 %; Eosinophils % 0.2 %; Hematocrit 32.8 % (35.3-44.9); Hemoglobin 10.6 g/dL (11.5-15.4); Immature Granulocytes % 0.6 % (0-4); Lymphocytes % 4.4 %; Mean Corpuscular HGB Conc 32.3 g/dL (31.6-35.5); Mean Corpuscular Hemoglobin 30.5 pg (28.0-33.3); Mean Corpuscular Volume 94.5 fL (83.0-100.0); Mean Platelet Volume 12.6 fL (9.4-12.4); Monocytes % 4.6 %; Neutrophils # 19.8 K/mcL (1.6-8.9); Red Blood Count 3.47 M/mcL (3.82-4.97); Red Cell Distribution Width 14.1 % (11.5-14.5)
[2017-08-19] MEDS ORDERED: Nitrofurantoin (BID) 100 MG CAPSULE PO SCH (08:00)
[2017-08-19 08:09] LABS: BUN/Creatinine Ratio 29 (6-26); Blood Urea Nitrogen 30 mg/dL (8-23); Calcium 9.3 mg/dL (8.6-10.3); Carbon Dioxide 25 mEq/L (23-29); Chloride 108 mEq/L (98-107); Glucose 148 mg/dL (70-105); Magnesium 1.8 mg/dL (1.6-2.6); Osmolality,Calculated 307 (280-300); Potassium 4.9 mEq/L (3.5-5.1); Sodium 144 mEq/L (136-145); eGFR For African Americans > 60 (> 60); eGFR For Non-African Americans 53 (> 60)
[2017-08-19 08:39] LABS: Platelet Count 152 K/mcL (140-400)
[2017-08-19] MEDS ORDERED: (Subcutaneous Insulin Pump [T:Slim] 1 EACH) MC SCH (09:00)
[2017-08-19] MEDS ORDERED: Furosemide 40 MG/4 ML VIAL IVP SCH (09:00)
[2017-08-19] MEDS: Gabapentin 100 MG CAPSULE PO SCH ×3 (09:05→21:33)
[2017-08-19] MEDS: Isosorbide MONOnitrate (24 HR) 60 MG TAB.ER.24H PO SCH ×2 (09:05→21:34)
[2017-08-19] MEDS: Aspirin Enteric Coated 81 MG Tablet PO SCH (09:05)
[2017-08-19] MEDS: Levalbuterol Neb 0.63 MG/3 ML IH SCH ×2 (11:06→21:03)
[2017-08-19 12:01] LABS: Adenovirus Not Detected (Not Detect); Bordetella Pertussis Not Detected (Not Detect); Chlamydophila pneumoniae Not Detected (Not Detect); Coronavirus 229E Not Detected (Not Detect); Coronavirus HKU1 Not Detected (Not Detect); Coronavirus NL63 Not Detected (Not Detect); Coronavirus OC43 Not Detected (Not Detect); Human Metapneumovirus Not Detected (Not Detect); Human Rhinovirus/Enterovirus Not Detected (Not Detect); Influenza A Subtype 2009 H1 Not Detected (Not Detect); Influenza A Untypeable Not Detected (Not Detect); Influenza B Not Detected (Not Detect); Mycoplasma pneumoniae Not Detected (Not Detect); Parainfluenza Virus 1 Not Detected (Not Detect); Parainfluenza Virus 2 Not Detected (Not Detect); Parainfluenza Virus 3 Not Detected (Not Detect); Parainfluenza Virus 4 Not Detected (Not Detect); Respiratory Syncytial Virus Not Detected (Not Detect)
[2017-08-19] MEDS ORDERED: Ondansetron 4 MG/2 ML VIAL IVP PRN (12:56)
[2017-08-19] MEDS: Vancomycin 1,500 MG in D5% in Water 250 ML IVPB SCH (14:12)
[2017-08-19] MEDS: Subcutaneous Insulin Pump [T:Slim] 1 EACH MC SCH (15:49)
--- NOTE | 2017-08-19 16:55 | Event Note ---
Date of Encounter: 08/19/17 Time of Encounter: 08:50 72-year-old female with history of chronic respiratory failure status post tracheostomy due to tracheal stenosis, COPD, CAD status post CABG, recent stents , chronic kidney disease, admitted with worsening shortness of breath. Patient was recently discharged from our hospital after being treated for pneumonia and non-ST elevation AL and receiving drug-eluting stent. Seen and examined at bedside. Reports improving shortness of breath, continues to have intermittent cough and increased tracheal secretions. Chest-S1, S2 heard, regular rate and rhythm. Lungs with bilateral coarse breath sounds and bibasal crackles. Trach collar in place Noted to have low-grade fever of 100.3 Labs reviewed-worsening leukocytosis at 22, serum troponin 0.8, elevated BNP, serum creatinine 1.02 Acute on chronic hypoxic respiratory failure-reviewed chest x-ray independently , looks almost similar to her recent chest x-ray with bilateral fluffy pulmonary opacities, suggestive of pulmonary edema. Continue IV Lasix, fluid restriction, supplemental oxygen. Follow-up noncontrast CT chest to rule out other etiology. D-dimer noted to be elevated, however patient is being treated for a recent infection and received recent coronary stent placement. Suspected acute exacerbation of congestive heart failure- echocardiogram from about 2 weeks ago showed 45-50% ejection fraction, mild global left ventricular systolic dysfunction, severe diastolic dysfunction with restrictive physiology. Continue IV Lasix, fluid restriction, urine output monitoring, telemetry. Cycle cardiac enzymes. We will consult cardiology if no improvement. Suspected bilateral pneumonia-initial clinical suspicion was low, however patient is noted to have low-grade fever with worsening leukocytosis with neutrophil predominance. We will send stat blood cultures, tracheal aspirate culture. Start broad-spectrum antibiotics with IV vancomycin and Zosyn. Patient almost completed a course of Augmentin that she was sent home with. Respiratory infection panel negative.
[2017-08-19] MEDS: Metoprolol 100 MG TABLET PO SCH (21:33)
[2017-08-20 05:19] LABS: Basophils % 0.3 %; Eosinophils # 0.5 K/mcL (0.0-0.6); Eosinophils % 4.8 %; Immature Granulocytes % 0.4 % (0-4); Lymphocytes # 1.4 K/mcL (0.6-4.6); Lymphocytes % 15.3 %; Mean Corpuscular Hemoglobin 30.7 pg (28.0-33.3); Mean Corpuscular Volume 95.8 fL (83.0-100.0); Mean Platelet Volume 11.9 fL (9.4-12.4); Monocytes # 0.6 K/mcL (0.0-1.3); Monocytes % 6.4 %; Neutrophils # 6.8 K/mcL (1.6-8.9); Platelet Count 164 K/mcL (140-400); Red Blood Count 2.61 M/mcL (3.82-4.97); Red Cell Distribution Width 14.1 % (11.5-14.5); Segmented Neutrophils % 72.8 %
[2017-08-20 05:46] LABS: Calcium 8.1 mg/dL (8.6-10.3); Magnesium 1.8 mg/dL (1.6-2.6)
[2017-08-20] MEDS ORDERED: *HR* Enoxaparin 40 MG/0.4 ML SYRINGE SQ SCH (06:00)
[2017-08-20] MEDS: Aspirin Enteric Coated 81 MG Tablet PO SCH (09:54)
[2017-08-20] MEDS: Gabapentin 100 MG CAPSULE PO SCH ×3 (09:54→21:50)
[2017-08-20] MEDS: Furosemide 40 MG/4 ML VIAL IVP SCH (09:55)
[2017-08-20] MEDS: Subcutaneous Insulin Pump [T:Slim] 1 EACH MC SCH (09:55)
[2017-08-20] MEDS: Isosorbide MONOnitrate (24 HR) 60 MG TAB.ER.24H PO SCH ×2 (09:55→21:50)
[2017-08-20] MEDS: Levalbuterol Neb 0.63 MG/3 ML IH SCH ×2 (10:50→21:26)
[2017-08-20 12:16] LABS: Protein/Creatinine Ratio,Urine 0.23 mg/mg (0.00-0.20)
[2017-08-20] MEDS: Vancomycin 1,500 MG in D5% in Water 250 ML IVPB SCH (13:42)
--- NOTE | 2017-08-20 15:11 | Internal Med Progress Note ---
Date of Encounter: 08/20/17 Time of Encounter: 09:45 - Assessment and plan (1) Acute kidney injury Current Visit: Yes Status: Acute Assessment and plan: Likely due to use of IV Lasix. Hold diuretics, FLORENCIO inhibitor for now, continue to monitor serum creatinine and urine output closely. Puentes catheterization for appropriate urine output monitoring. Nephrology consulted, will follow-up recommendations. Check urine protein creatinine ratio, uric acid levels. Avoid nephrotoxic agents. (2) Acute on chronic respiratory failure Current Visit: Yes Status: Acute Assessment and plan: Patient is on home oxygen due to underlying COPD. Oxygen requirements at 10 L/ m via tracheostomy collar. Being treated for acute CHF and possible pneumonia. Qualifiers: Respiratory failure complication: hypoxia and hypercapnia Qualified Code(s) : J96.21 - Acute and chronic respiratory failure with hypoxia; J96.22 - Acute and chronic respiratory failure with hypercapnia; J96.22 - Acute and chronic respiratory failure with hypercapnia; J96.22 - Acute and chronic respiratory failure with hypercapnia (3) Elevated troponin Current Visit: Yes Status: Acute Assessment and plan: Noted to have slight troponin leak 0.2-->0.8; could be related to demand ischemia from acute CHF and hypoxemia. Continue to trend troponins, telemetry monitoring. Cardiology consulted. patient recently had non-ST elevation [place], around 10 days ago and received drug- eluting stent with troponins as high as 21. (4) Acute CHF Current Visit: Yes Status: Acute Assessment and plan: Echocardiogram from 10 days ago shows mildly reduced ejection fraction 45-50%, mild global left ventricular systolic dysfunction, severe diastolic dysfunction with restrictive physiology. Patient has been on IV Lasix since yesterday, noted to have around 800 mL urine output. We will continue to monitor without diuretics at this time due to worsening renal failure, as she is not in respiratory distress, oxygen requirements have not changed. We will consider changing to Bumex. Continue beta bess, telemetry, supplemental oxygen. We will follow up cardiology recommendations. Qualifiers: Heart failure type: combined systolic and diastolic Qualified Code(s): I50.9 - Heart failure, unspecified (5) Chronic kidney disease Current Visit: Yes Status: Chronic Assessment and plan: Patient unaware of chronic kidney disease but previous labs showed GFR in low 50s. Outpatient nephrology follow-up. Qualifiers: Chronic kidney disease stage: stage 3 (moderate) Qualified Code(s): N18.3 - Chronic kidney disease, stage 3 (moderate) (6) CAD (coronary artery disease) Current Visit: Yes Status: Chronic Assessment and plan: Continue aspirin, Plavix, statin, beta bess, Imdur. FLORENCIO inhibitor on hold due to renal dysfunction. Qualifiers: Coronary Disease-Associated Artery/Lesion type: [place] artery [place] vs. transplanted heart: [place] heart Associated angina: without angina Qualified Code(s): I25.10 - Atherosclerotic heart disease of [place] coronary artery without angina pectoris (7) COPD (chronic obstructive pulmonary disease) Current Visit: Yes Status: Chronic Assessment and plan: Not in acute exacerbation. Continue when necessary bronchodilators and supplemental oxygen. Qualifiers: COPD type: unspecified COPD Qualified Code(s): J44.9 - Chronic obstructive pulmonary disease, unspecified (8) Diabetes mellitus Current Visit: Yes Status: Chronic Assessment and plan: Blood sugars noted to be well controlled. Continue Accu-Chek blood glucose monitoring with sliding scale insulin as needed. Diabetic diet. Qualifiers: Diabetes mellitus type: type 2 Diabetes mellitus complication status: with unspecified complications Diabetes mellitus [facility] insulin use: with [facility] use Qualified Code(s): E11.8 - Type 2 diabetes mellitus with unspecified complications; Z79.4 - nursing home (current) use of insulin; Z79.4 - nursing home ( current) use of insulin; Z79.4 - extermination inspector (current) use of insulin; Z79.4 - extermination inspector (current) use of insulin (9) Pneumonia Current Visit: Yes Status: Suspected Assessment and plan: CT chest reviewed-showed moderate bilateral pleural effusions with significant opacities and interstitial edema, underlying by basilar pneumonia cannot be excluded. Patient had low-grade fever yesterday but no further fever spikes since. Improving leukocytosis today. Follow-up blood and tracheal aspirate cultures. Continue broad-spectrum IV antibiotics-vancomycin and Zosyn. Supportive care and supplemental oxygen. Qualifiers: Pneumonia type: due to unspecified organism Laterality: unspecified laterality Lung location: unspecified part of lung Qualified Code(s): J18.9 - Pneumonia, unspecified organism (10) Tracheostomy in place Current Visit: Yes Status: Chronic - Subjective Interval history: Appears slightly weak but reports feeling well. No shortness of breath, cough, chest pain. No nausea, vomiting, diarrhea. Noted to have less than usual urine output since yesterday, despite IV Lasix. - Constitutional Vitals: Temp Pulse Resp BP Pulse Ox 98.2 F 68 18 122/59 100 08/20/17 11:54 08/20/17 11:54 08/20/17 11:54 08/20/17 11:54 08/20/17 11:54 General appearance: Present: A&O X 3, obese, answers questions appropriately - Respiratory Respiratory exam: Present: CTAB (Coarse breath sounds bilaterally, faint bibasal crackles). Absent: accessory muscle use, rales, rhonchi, wheezes - Cardiovascular Cardiovascular exam: Present: RRR, +S1, +S2. Absent: diastolic murmur, gallop, rubs, systolic murmur - GI/Abdominal GI/Abdominal exam: Present: normal bowel sounds, soft (Obese), no peritoneal signs. Absent: distended, tenderness - Extremities Exam Extremities exam: Present: full ROM, warm, radial pulses palpable and symmetrical. Absent: calf tenderness, cyanotic, pedal edema - Neurological Exam Neurological exam: Present: CN II-XII intact, oriented X3, no focal deficits. Absent: pronater drift, facial droop, speech deficit Internal Medicine: Result - Labs CBC & Chem 7: 08/20/17 04:36 08/20/17 04:36 Labs: Short CBC 08/20/17 Range/Units 04:36 WBC 9.4 D (4.3-11.1) K/mcL Hgb 8.0 L D (11.5-15.4) g/dL Hct 25.0 L (35.3-44.9) % Plt Count 164 (140-400) K/mcL Neutrophils # 6.8 (1.6-8.9) K/mcL BMP 08/20/17 04:36 Sodium 141 Potassium 4.0 Chloride 105 Carbon Dioxide 31 H BUN 41 H Creatinine 1.74 H Glucose 164 H Calcium 8.1 L - Impressions Impressions Chest CT 08/19/17 09:00 IMPRESSION: 1. No significant change in appearance of moderate sized bilateral pleural effusions and bilateral lower lobe airspace consolidation, felt to represent passive atelectasis. However, underlying pneumonia or aspiration are also diagnostic considerations. 2. Slight interval improvement in appearance of bilateral upper lobe ground-glass airspace opacity, likely representing resolving pulmonary edema and/or atelectasis. D/ / 08/19/2017 18:18:51 Edwin Beauchamp MD / clara Interpreting Provider: Edwin Beauchamp MD Consult Discharge Plan - Plan Referrals: Tera Mcintosh MD [Primary Care Provider] -
[2017-08-20] MEDS ORDERED: *HR* Heparin 5,000 UNIT/ML VIAL IVP ONE (16:32)
[2017-08-20] MEDS ORDERED: *HR* Heparin 5,000 UNIT/ML VIAL IVP PRN ×2 (16:32)
[2017-08-20] MEDS ORDERED: Heparin 25,000 UNIT/500 ML D5W 25,000 UNIT/500 ML BAG IVC SCH (16:45)
[2017-08-20 17:27] LABS: Hemoglobin 8.4 g/dL (11.5-15.4); Mean Corpuscular HGB Conc 31.1 g/dL (31.6-35.5); Mean Corpuscular Volume 96.4 fL (83.0-100.0); Mean Platelet Volume 11.3 fL (9.4-12.4); Platelet Count 164 K/mcL (140-400); Red Cell Distribution Width 13.8 % (11.5-14.5)
[2017-08-20 17:34] LABS: INR 1.2; Prothrombin Time 12.9 Seconds (9.4-12.1)
[2017-08-20 17:37] LABS: Activated Partial Thrombo Time 28.4 Seconds (26.0-36.0)
[2017-08-20] MEDS: Metoprolol 100 MG TABLET PO SCH (21:50)
[2017-08-21 01:15] LABS: Basophils % 0.4 %; Eosinophils # 0.7 K/mcL (0.0-0.6); Eosinophils % 9.1 %; Hematocrit 24.2 % (35.3-44.9); Hemoglobin 7.6 g/dL (11.5-15.4); Immature Granulocytes % 0.3 % (0-4); Lymphocytes # 1.5 K/mcL (0.6-4.6); Lymphocytes % 20.2 %; Mean Corpuscular HGB Conc 31.4 g/dL (31.6-35.5); Mean Corpuscular Hemoglobin 30.4 pg (28.0-33.3); Mean Corpuscular Volume 96.8 fL (83.0-100.0); Mean Platelet Volume 12.2 fL (9.4-12.4); Monocytes # 0.6 K/mcL (0.0-1.3); Monocytes % 8.2 %; Neutrophils # 4.6 K/mcL (1.6-8.9); Platelet Count 169 K/mcL (140-400); Red Cell Distribution Width 13.8 % (11.5-14.5); Segmented Neutrophils % 61.8 %
[2017-08-21 01:29] LABS: Calcium 8.2 mg/dL (8.6-10.3); Magnesium 1.8 mg/dL (1.6-2.6); Potassium 3.9 mEq/L (3.5-5.1)
[2017-08-21] MEDS ORDERED: Aminoglycoside Consult 1 EACH MC ONE (08:09)
[2017-08-21] MEDS: Levalbuterol Neb 0.63 MG/3 ML IH SCH ×2 (08:35→22:16)
[2017-08-21] MEDS: Aspirin Enteric Coated 81 MG Tablet PO SCH (09:33)
[2017-08-21] MEDS: Subcutaneous Insulin Pump [T:Slim] 1 EACH MC SCH (09:33)
[2017-08-21] MEDS: Isosorbide MONOnitrate (24 HR) 60 MG TAB.ER.24H PO SCH (09:33)
[2017-08-21] MEDS: Gabapentin 100 MG CAPSULE PO SCH ×3 (09:33→21:26)
--- NOTE | 2017-08-21 11:10 | Nephrology Consult Note ---
Date of Encounter: 08/21/17 Time of Encounter: 10:30 Assessment and Plan (1) Acute kidney injury Current Visit: Yes Status: Acute SILVIO most likely in setting of acute on chronic respiratory failure, decreased oral intake along with GI losses and continued diuretic use. Creat peaked 1.74, today 1.26. Documented urine output 2500 cc. Would stop Vanco for less nephrotoxic Atb coverage. If doing LHC tomorrow, will need to be started on IV hydration and Mucomyst. Will continue to monitor, I&O's. History of Present Illness - Reason for Consult Consult date: 08/21/17 Acute Kidney Injury - History of Present Illness Ms. Valero is a 72 year old female who presented to [facility] on Aug 19 .Admitted for acute on chronic respiratory failure, CHF and possible pneumonia. S/P LHC on Aug 09 in setting of NSTEMI with stent placement an dpneumonia. Creat following LHC 1.36. Normal renal fct prior to and afterward until this current hospital stay. Has chronic trach>O2 collar. Other PMH-COPD, DM II, HTN. Ms. Valero states not feeling well on Monday with increasing SOB, decreased oral intake with episode of vomiting and diarrhea on Monday. States she continued taking her Furosemide. Lasix and Lisinopril on hold. CT chest reviewed-showed moderate bilateral pleural effusions with significant opacities and interstitial edema, underlying by basilar pneumonia cannot be excluded. Started on Vanco and Zosyn. WBC 22, trop 4.44, creat peaked at 1.74 from 1.02. Renal fct improving today, creat 1.26. Echo shows mildly reduced ejection fraction 45- 50%, mild global left ventricular systolic dysfunction, severe diastolic dysfunction with restrictive physiology. This morning Ms. Valero is sitting up in chair, staes feeling much better and no longer having CLAU. She admits diabetes and hypertension for 20 years, under good control. Denies proteinuria, hematuria renal stones. Admits UTI about twice a year. Denies recent or past NSAID use. Past Med Surg Social Fam HX - Past Medical History Medical history: CHF, coronary artery disease, diabetes, hyperlipidemia, hypertension, other Psychiatric history: anxiety - Past Surgical History Surgical History: angioplasty/stent, cholecystectomy, coronary bypass (CABG), hysterectomy, orthopedic, other, other - Social History Smoking Status: Former smoker Smokeless Tobacco Status: No Alcohol use: rarely Drug use: none - Family History Mother Family Member Ethnicity: Non- Living Status: Age at : 72 Hx Family Cardiac Disorders: Yes Hx Family Endocrine Disorder: Yes Medications and Allergies Atorvastatin [Lipitor] 40 mg PO HS 03/22/16 [History] Clopidogrel [Plavix] 75 mg PO DAILY 03/22/16 [History] Isosorbide MONOnitrate (24 HR) [Imdur] 60 mg PO BID 03/22/16 [History] Gabapentin [Neurontin] 100 mg PO TID 08/06/17 [History] HydrOXYzine 10 mg PO HS 08/06/17 [History] Metoprolol Tartrate [Lopressor] 50 mg PO BID 08/06/17 [History] Subcutaneous Insulin Pump [T:Slim] 1 each MC DAILY 08/06/17 [History] rOPINIRole [Requip] 3 mg PO HS 08/06/17 [History] Aspirin Enteric Coated [Aspirin EC] 81 mg PO DAILY #30 tablet. 08/12/17 [Rx] Furosemide [Lasix] 20 mg PO DAILY PRN #30 tablet 08/12/17 [Rx] Lisinopril [Zestril] 20 mg PO DAILY 08/19/17 [History] 3 Allergy/AdvReac Type Severity Reaction Status Date / Time cephalexin [From Keflex] Allergy Rash Verified 08/09/16 12:19 latex Allergy Rash Verified 08/09/16 12:19 morphine Allergy Confusion Verified 08/09/16 12:19 ibuprofen AdvReac Confusion Verified 08/09/16 12:19 metal Allergy Rash Uncoded 03/22/16 15:13 Review of Systems All Systems: reviewed and no additional remarkable complaints except as stated Exam - Vital Signs Vital signs: Initial Vital Signs Temp Pulse Resp BP Pulse Ox 98.8 F 104 30 153/54 100 08/19/17 03:00 08/19/17 03:00 08/19/17 03:00 08/19/17 03:00 08/19/17 03:00 Vital Signs - Last 8 Hours Temp Pulse Resp BP Pulse Ox 08/21/17 09:44 94 08/21/17 08:37 16 94 08/21/17 06:34 98.1 F 71 16 141/47 100 08/21/17 03:39 97.6 F 62 16 111/42 98 Intake and Output 08/20/17 08/21/17 08/21/17 23:59 07:59 15:59 Intake Total 250 / 250 264 / 264 531 / 531 Output Total 1100 / 1100 300 / 300 500 / 500 Balance -850 / -850 -36 / -36 Intake: IV Fluids 100 / 100 264 / 264 171 / 171 Heparin 25,000 UNIT/500 ML D5W 164 / 164 171 / 171 25,000 unit In 500 ml @ 20 mls/ hr IVC .Q24H YAS Rx#:[id number] Zosyn 3.375 GM In 0.9 % Sodium 100 / 100 100 / 100 Chloride 100 ML @ 25 mls/hr IVPB Q8H YAS Rx#:[id number] Oral 150 / 150 360 / 360 Output: Urine 1100 / 1100 300 / 300 500 / 500 Other: Meal APPLE Breakfast Percent of Meal Consumed 75% Stool Size Large Stool Consistency soft Stool Color Brown # Voids 1 Weight 86.9 kg Blood Glucose* 211 88 Patient Weight 08/21/17 23:59 Weight 86.9 kg - General Appearance General appearance: well-developed, well-nourished, appears started age EENT: mucous membranes moist Neck: no JVD Respiratory: clear Cardiology: no edema, regular rate, regular rhythm Gastrointestinal: normoactive bowel sounds, no tenderness Integumentary: warm and dry Neurologic: alert and oriented x3 Results - Lab Results 08/21/17 00:47 08/21/17 00:47 Most recent lab results Calcium 8.2 mg/dL (8.6-10.3) L 08/21/17 00:47 Magnesium 1.8 mg/dL (1.6-2.6) 08/21/17 00:47 Urine Creatinine 146 mg/dL 08/20/17 11:45 Urine Total Protein 34 mg/dL 08/20/17 11:45 Consult Discharge Plan - Plan Referrals: Tera Mcintosh MD [Primary Care Provider] -
--- NOTE | 2017-08-21 11:29 | Cardiology Consult Note ---
<Ludin Brown - Last Filed: 08/21/17 11:29> Date of Encounter: 08/21/17 Time of Encounter: 09:45 Assessment and Plan (1) Pneumonia Current Visit: Yes Status: Suspected Per Cardiology: Recently treated for pneumonia. Currently on antibiotics. Management per primary service. Qualifiers: Pneumonia type: due to unspecified organism Laterality: unspecified laterality Lung location: unspecified part of lung Qualified Code(s): J18.9 - Pneumonia, unspecified organism (2) Acute on chronic respiratory failure Current Visit: Yes Status: Acute Per Cardiology: History of tracheal stenosis with tracheostomy just and 13 in setting of gallbladder surgery. Has trach. Management per primary service. Qualifiers: Respiratory failure complication: hypoxia and hypercapnia Qualified Code(s) : J96.21 - Acute and chronic respiratory failure with hypoxia; J96.22 - Acute and chronic respiratory failure with hypercapnia; J96.22 - Acute and chronic respiratory failure with hypercapnia; J96.22 - Acute and chronic respiratory failure with hypercapnia (3) Acute blood loss anemia Current Visit: Yes Status: Acute Per Cardiology: H&H downward trending with acute stool positive. On aspirin, Plavix, and heparin drip. Continue aspirin and Plavix since patient had recent drug-eluting stent to proximal LAD 80% lesion July 2017. Will discuss with Dr. Beltran discontinuation of heparin drip. (4) Acute kidney injury Current Visit: Yes Status: Acute Per Cardiology: Presented with SILVIO. Will DC ACEI. IV Lasix on hold. Net I&O - 1395ml. (5) Diastolic dysfunction Current Visit: Yes Status: Chronic Per Cardiology: Again last echo showed EF 45-50 with severe diastolic dysfunction with restrictive physiology, normal RV structure and function, mild MR, mild TR, mild NH, mild pulmonary hypertension. IV Lasix on hold. Clinically improved and appears euvolemic on exam. (6) Elevated troponin Current Visit: Yes Status: Acute Per Cardiology: Recent hospital stay with peak troponin 21.75. Troponin downward trended to 0.20 and now peak at 4.4 and now trended down to 3.10. Early chest pain-free. Catheterization from July 2017 showed drug-eluting stent to proximal LAD 80% lesion. Had remaining OM 2 90% lesion and 100% proximal RCA lesion with chronic occlusion and collaterals left to right. Patient presented with acute kidney injury and acute blood loss anemia with occult stool positive. Patient will need to continue aspirin and Plavix due to recent stenting. We'll discontinue IV heparin drip for now. Most recent echo showed EF 45-50% with severe diastolic dysfunction and restrictive physiology. We'll check a limited echo. Titrate long-acting nitrates. Will discuss with Dr. Beltran potential repeat ischemic eval, however with acute bleeding and acute kidney injury may proceed with medical management. Had cardiac rehab consult previously completed recently. (7) CAD (coronary artery disease) Current Visit: Yes Status: Chronic Per Cardiology: Known history of CAD with CABG 3 in 1997 at [facility]. Recent catheterization as above. On aspirin, Plavix, statin, beta bess, long-acting nitrate. We'll hold FLORENCIO inhibitor for now due to SILVIO. Qualifiers: Coronary Disease-Associated Artery/Lesion type: [place] artery [place] vs. transplanted heart: [place] heart Associated angina: without angina Qualified Code(s): I25.10 - Atherosclerotic heart disease of [place] coronary artery without angina pectoris Discussion w patient/family: The assessment and plan as outlined above was discussed with the patient and/or family members who expressed understanding and agreement. All questions were answered. Thank you for involving us in the care of your patient. Please call with any questions. History of Present Illness Consult date: 08/21/17 Requesting physician: Mireya Celestin Consult reason: Elevated trop, hx CAD Chief complaint: Fatigue, Nausea History of present illness: Ms. Valero is a 72 year old female with relevant past medical history of CAD with CABG, hypertension, DM 2, MATT on CPAP, tracheal stenosis with history of tracheostomy in 2012, [place] with recent stenting. I saw patient last week for the the first time for hospital follow-up and recommended patient go to ER or generalized "not feeling well". Cardiology consult today for elevated troponins. Patient reports after office visit she did go home, however went to [facility] ER the following day due to worsening overall fatigue, nausea, vomiting, diarrhea. She denied any chest pain. Has not used any nitroglycerin pills. She currently reports overall symptoms have improved over the weekend during hospital stay after receiving antibiotics. She denies any palpitations, dizziness. Denies any active bleeding or blood loss. Denies any concerns for right groin site from her recent catheterization. Past Med Surg Social Fam HX - Past Medical History Source: patient, old records reviewed Medical history: CHF, coronary artery disease, diabetes, hyperlipidemia, hypertension, other Psychiatric history: anxiety - Past Surgical History Surgical History: angioplasty/stent, cholecystectomy, coronary bypass (CABG), hysterectomy, orthopedic, other, other - Social History Smoking Status: Former smoker Smokeless Tobacco Status: No Alcohol use: rarely Drug use: none - Family History Mother Family Member Ethnicity: Non- Living Status: Age at : 72 Hx Family Cardiac Disorders: Yes Hx Family Endocrine Disorder: Yes Medications and Allergies Atorvastatin [Lipitor] 40 mg PO HS 03/22/16 [History] Clopidogrel [Plavix] 75 mg PO DAILY 03/22/16 [History] Isosorbide MONOnitrate (24 HR) [Imdur] 60 mg PO BID 03/22/16 [History] Gabapentin [Neurontin] 100 mg PO TID 08/06/17 [History] HydrOXYzine 10 mg PO HS 08/06/17 [History] Metoprolol Tartrate [Lopressor] 50 mg PO BID 08/06/17 [History] Subcutaneous Insulin Pump [T:Slim] 1 each MC DAILY 08/06/17 [History] rOPINIRole [Requip] 3 mg PO HS 08/06/17 [History] Aspirin Enteric Coated [Aspirin EC] 81 mg PO DAILY #30 tablet. 08/12/17 [Rx] Furosemide [Lasix] 20 mg PO DAILY PRN #30 tablet 08/12/17 [Rx] Lisinopril [Zestril] 20 mg PO DAILY 08/19/17 [History] 3 Allergy/AdvReac Type Severity Reaction Status Date / Time cephalexin [From Keflex] Allergy Rash Verified 08/09/16 12:19 latex Allergy Rash Verified 08/09/16 12:19 morphine Allergy Confusion Verified 08/09/16 12:19 ibuprofen AdvReac Confusion Verified 08/09/16 12:19 metal Allergy Rash Uncoded 03/22/16 15:13 All Systems Review: A 10-system review of systems was performed and is negative for pertinent findings except as documented above in the HPI. - Constitutional Constitutional: chills, fatigue, weakness - Cardiovascular Cardiovascular: as per HPI, dyspnea at rest, dyspnea on exertion - Respiratory Respiratory: cough, other (Brownish colored sputum) - Gastrointestinal Gastrointestinal: nausea Physical Examination Vital Signs, Last 4 Hours Temp Pulse Resp BP Pulse Ox 08/21/17 11:21 98.3 F 60 16 121/66 100 08/21/17 09:44 94 08/21/17 08:37 16 94 General: Conversant, No Apparent Distress HEENT: Atraumatic, Normocephaly, Mucus Membranes Moist Neck: No JVD, Normal carotid pulses Cardiac: Reg Rate and Rhythm, Normal S1 and S2, No Murmur Lungs: Normal Breath Sounds, No Wheeze, Rales, Rhonchi Neuro: Alert and responsive, No focal deficits noted Abdomen: Soft, Non-Tender Skin: No rashes noted on visualized skin Musculoskeletal: No Chest Wall Tenderness Extremities: No Clubbing, No Cyanosis, No Edema, Normal Pulses Results 08/21/17 00:47 08/21/17 00:47 Lab Results 08/20/17 08/20/17 08/20/17 15:44 17:21 17:21 WBC 7.6 Hgb 8.4 L Hct 27.0 L Plt Count 164 INR 1.2 APTT 28.4 Sodium Potassium Chloride Carbon Dioxide BUN Creatinine Glucose Calcium Magnesium Troponin I 4.44 H* Laboratory Tests 08/07/17 08/18/17 08/18/17 04:18 09:50 23:20 Hgb Hct INR Creatinine Est GFR (Non-Af Amer) Troponin I 21.75 H* 0.20 H* 0.80 H* Stool Occult Blood 08/19/17 08/19/17 08/20/17 06:51 06:51 04:36 Hgb 10.6 L Hct 32.8 L INR Creatinine 1.02 1.74 H Est GFR (Non-Af Amer) 53 L 29 L Troponin I Stool Occult Blood 08/20/17 08/20/17 08/21/17 15:44 17:21 00:47 Hgb 7.6 L Hct 24.2 L INR 1.2 Creatinine Est GFR (Non-Af Amer) Troponin I 4.44 H* Stool Occult Blood 08/21/17 08/21/17 08/21/17 00:47 00:47 04:54 Hgb Hct INR Creatinine 1.26 H Est GFR (Non-Af Amer) 42 L Troponin I 3.89 H* 3.10 H* Stool Occult Blood 08/21/17 10:25 Hgb Hct INR Creatinine Est GFR (Non-Af Amer) Troponin I Stool Occult Blood Positive A ITS Impressions Chest CT 08/19/17 09:00 IMPRESSION: 1. No significant change in appearance of moderate sized bilateral pleural effusions and bilateral lower lobe airspace consolidation, felt to represent passive atelectasis. However, underlying pneumonia or aspiration are also diagnostic considerations. 2. Slight interval improvement in appearance of bilateral upper lobe ground-glass airspace opacity, likely representing resolving pulmonary edema and/or atelectasis. D/ / 08/19/2017 18:18:51 Edwin Beauchamp MD / [facility] Interpreting Provider: Edwin Beauchamp MD Intake & Output 08/18/17 08/19/17 08/20/17 08/21/17 23:59 23:59 23:59 23:59 Intake Total 710 / 710 700 / 700 795 / 795 Output Total 300 / 300 2500 / 2500 800 / 800 Balance 410 / 410 -1800 / -1800 -5 / -5 Weight 88.4 kg 86.908 kg 86.9 kg Active Medications Aspirin (Aspirin Ec) 81 mg PO DAILY YAS Stop: 02/18/18 09:01 Last Admin: 08/21/17 09:33 Dose: 81 mg Atorvastatin Calcium (Lipitor) 40 mg PO HS YAS Stop: 02/18/18 21:01 Last Admin: 08/20/17 21:50 Dose: 40 mg Clopidogrel Bisulfate (Plavix) 75 mg PO DAILY YAS Stop: 02/18/18 09:01 Last Admin: 08/21/17 09:33 Dose: 75 mg Furosemide (Lasix) 40 mg IVP BIDDIURETIC YAS Stop: 02/18/18 04:32 Last Admin: 08/20/17 09:55 Dose: Not Given Gabapentin (Neurontin) 100 mg PO TID YAS Stop: 02/18/18 09:01 Last Admin: 08/21/17 09:33 Dose: 100 mg Guaifenesin (Mucinex) 600 mg PO BID PRN PRN Reason: Congestion Stop: 02/18/18 03:44 Heparin Sodium (Porcine) (Heparin) 4,000 unit IVP Q6HR PRN PRN Reason: SEE COMMENTS Stop: 02/19/18 16:33 Heparin Sodium (Porcine) (Heparin) 2,000 unit IVP Q6H PRN PRN Reason: SEE COMMENTS Stop: 02/19/18 16:33 Last Admin: 08/21/17 01:53 Dose: 2,000 unit Hydroxyzine HCl (Hydroxyzine) 10 mg PO HS [facility] Stop: 02/18/18 21:01 Last Admin: 08/20/17 21:50 Dose: 10 mg Piperacillin Sod/Tazobactam (Sod 3.375 gm/ Sodium Chloride) 100 mls @ 25 mls/ hr IVPB Q8H YAS Stop: 02/18/18 13:01 Last Admin: 08/21/17 05:03 Dose: 25 mls/hr Vancomycin HCl 1,500 mg/ (Dextrose) 250 mls @ 167 mls/hr IVPB Q24H YAS PRN Reason: Protocol Stop: 02/18/18 13:01 Last Admin: 08/20/17 13:42 Dose: 167 mls/hr Heparin Sodium/Dextrose (Heparin 25,000 Unit/500 Ml D5w) 25,000 unit in 500 mls @ 20 mls/hr IVC .Q24H YAS PRN Reason: Protocol Stop: 02/19/18 16:46 Last Titration: 08/21/17 09:36 Dose: 23 mls/hr, 23 mls/hr Isosorbide Mononitrate (Imdur) 60 mg PO BID [facility] Stop: 02/18/18 09:01 Last Admin: 08/21/17 09:33 Dose: 60 mg Levalbuterol HCl (Xopenex) 0.63 mg IH [id number] [facility] Stop: 02/18/18 10:01 Last Admin: 08/21/17 08:35 Dose: 0.63 mg Lisinopril (Zestril) 10 mg PO DAILY YAS PRN Reason: Protocol Stop: 02/18/18 09:01 Last Admin: 08/20/17 09:55 Dose: 10 mg Metoprolol Tartrate (Lopressor) 100 mg PO HS [facility] Stop: 02/18/18 21:01 Last Admin: 08/20/17 21:50 Dose: 100 mg Metoprolol Tartrate (Lopressor) 50 mg PO DAILY [facility] Stop: 02/18/18 09:01 Last Admin: 08/21/17 09:33 Dose: 50 mg Naloxone HCl (Narcan) 0.4 mg IVP Q2MIN PRN PRN Reason: SEE COMMENTS Stop: 02/18/18 03:46 Ondansetron HCl (Zofran) 4 mg IVP Q6HR PRN; Protocol PRN Reason: Nausea And Vomiting Stop: 02/18/18 12:57 Pharmacy Profile Note (Patient Taking Own Medication) 1 each MC DAILY YAS Stop: 02/18/18 09:01 Last Admin: 08/21/17 09:33 Dose: Not Given Ropinirole HCl (Requip) 3 mg PO HS YAS Stop: 02/18/18 21:01 Last Admin: 08/20/17 21:50 Dose: 3 mg - Imaging and Cardiology Chest Xray: report reviewed Echo: report reviewed Cardiac cath: report reviewed - EKG Interpretation EKG results cardiology: personally reviewed, other (Telemetry review with average heart rate 64 the past 12 hours, currently sinus rhythm to sinus bradycardia in the 50s to 60s) Consult Discharge Plan - Plan Referrals: Tera Mcintosh MD [Primary Care Provider] - <Cindi Beltran - Last Filed: 08/21/17 17:47> Date of Encounter: 08/21/17 - Attending Attestation I examined this patient and my medical decision-making was reviewed with the EXTENSION SERVICE SPECIALIST IN CHARGE. I agree with the documented findings, disposition and treatment plan as described. Ms. Valero originally presented to the hospital for not feeling well. Discovered to have PNA - on treatment with Abx. Incidentally discovered are elevated troponins rising to 4.4. No acute ECG findings. Also discovered to have drop in Hgb and stool occult positive for blood. Given presence of acute blood loss anemia, recommend conservative management. Ideally recommend continuing asa/plavix given recent PCI. Would only stop if absolutely warranted. Agree with stopping heparin at this time. Patient is chest pain free. Awaiting echo. Assessment and Plan Discussion w patient/family: The assessment and plan as outlined above was discussed with the patient and/or family members who expressed understanding and agreement. All questions were answered. Thank you for involving us in the care of your patient. Please call with any questions. History of Present Illness History of present illness: Ms. Valero is a 72 year old female All Systems Review: A 10-system review of systems was performed and is negative for pertinent findings except as documented above in the HPI. Physical Examination Vital Signs, Last 4 Hours Temp Pulse Resp BP Pulse Ox 08/21/17 16:38 98.3 F 66 16 137/62 100 Results 08/21/17 00:47 08/21/17 00:47 Lab Results 08/21/17 08/21/17 08/21/17 00:47 00:47 00:47 WBC 7.4 Hgb 7.6 L Hct 24.2 L Plt Count 169 APTT 51.4 H D Sodium 140 Potassium 3.9 Chloride 105 Carbon Dioxide 32 H BUN 34 H Creatinine 1.26 H Glucose 118 H Calcium 8.2 L Magnesium 1.8 Troponin I 08/21/17 08/21/17 08/21/17 00:47 04:54 08:17 WBC Hgb Hct Plt Count APTT 68.3 H Sodium Potassium Chloride Carbon Dioxide BUN Creatinine Glucose Calcium Magnesium Troponin I 3.89 H* 3.10 H* 08/21/17 11:19 WBC Hgb Hct Plt Count APTT Sodium Potassium Chloride Carbon Dioxide BUN Creatinine Glucose Calcium Magnesium Troponin I 2.82 H*
[2017-08-21] MEDS: Vancomycin 1,500 MG in D5% in Water 250 ML IVPB SCH (16:56)
--- NOTE | 2017-08-21 17:35 | Internal Med Progress Note ---
Date of Encounter: 08/21/17 Time of Encounter: 09:20 - Assessment and plan (1) Acute kidney injury Current Visit: Yes Status: Acute Assessment and plan: Likely due to use of IV Lasix. Continue to hold diuretics, FLORENCIO inhibitor. Nephrology consult appreciated. continue to monitor serum creatinine and urine output closely. Noted to have appropriate urine output up to 2.5 L in 24 hours. Minimally elevated urine protein creatinine ratio, at 0.23. Avoid nephrotoxic agents. (2) Acute on chronic respiratory failure Current Visit: Yes Status: Acute Assessment and plan: Patient is on home oxygen due to underlying COPD. Oxygen requirements at 6 L/m via tracheostomy collar. Being treated for acute CHF and possible pneumonia. Qualifiers: Respiratory failure complication: hypoxia and hypercapnia Qualified Code(s) : J96.21 - Acute and chronic respiratory failure with hypoxia; J96.22 - Acute and chronic respiratory failure with hypercapnia; J96.22 - Acute and chronic respiratory failure with hypercapnia; J96.22 - Acute and chronic respiratory failure with hypercapnia (3) Elevated troponin Current Visit: Yes Status: Acute Assessment and plan: Possible non-ST elevation OR. Patient's Troponin went up to 4.44, from 0.8; started on medical management with IV Heparin drip, continued on ASA, Plavix, statin, beta bess; Serial troponins currently trending down. Continue telemetry monitoring. Cardiology consult appreciated-discontinued IV heparin drip due to anemia, occult blood positive stool. Continue to follow. patient recently had non-ST elevation OR, around 10 days ago and received drug- eluting stent with troponins as high as 21. (4) Acute CHF Current Visit: Yes Status: Acute Assessment and plan: Echocardiogram from 10 days ago shows mildly reduced ejection fraction 45-50%, mild global left ventricular systolic dysfunction, severe diastolic dysfunction with restrictive physiology. Limited echo To be repeated per cardiology. IV diuresis has been on hold due to acute kidney injury. Noted to have appropriate urine output. Improving oxygen requirements. Continue beta bess , telemetry, supplemental oxygen. Qualifiers: Heart failure type: combined systolic and diastolic Qualified Code(s): I50.9 - Heart failure, unspecified (5) Chronic kidney disease Current Visit: Yes Status: Chronic Qualifiers: Chronic kidney disease stage: stage 3 (moderate) Qualified Code(s): N18.3 - Chronic kidney disease, stage 3 (moderate) (6) CAD (coronary artery disease) Current Visit: Yes Status: Chronic Assessment and plan: Continue aspirin, Plavix, statin, beta bess, Imdur. FLORENCIO inhibitor on hold due to renal dysfunction. Qualifiers: Coronary Disease-Associated Artery/Lesion type: bypass graft [place] vs. transplanted heart: [place] heart Associated angina: without angina Qualified Code(s): I25.810 - Atherosclerosis of coronary artery bypass graft(s) without angina pectoris (7) COPD (chronic obstructive pulmonary disease) Current Visit: Yes Status: Chronic Assessment and plan: Not in acute exacerbation. Continue when necessary bronchodilators and supplemental oxygen. Qualifiers: COPD type: unspecified COPD Qualified Code(s): J44.9 - Chronic obstructive pulmonary disease, unspecified (8) Diabetes mellitus Current Visit: Yes Status: Chronic Assessment and plan: Blood sugars noted to be well controlled. Continue Accu-Chek blood glucose monitoring with sliding scale insulin as needed. Diabetic diet. Qualifiers: Diabetes mellitus type: type 2 Diabetes mellitus complication status: with unspecified complications Diabetes mellitus oysterman insulin use: with correction use Qualified Code(s): E11.8 - Type 2 diabetes mellitus with unspecified complications; Z79.4 - jail (current) use of insulin; Z79.4 - jail ( current) use of insulin; Z79.4 - terminal worker (current) use of insulin; Z79.4 - terminal worker (current) use of insulin (9) Pneumonia Current Visit: Yes Status: Suspected Assessment and plan: CT chest reviewed-showed moderate bilateral pleural effusions with significant opacities and interstitial edema, underlying by basilar pneumonia cannot be excluded. Patient had low-grade fever yesterday but no further fever spikes since. Improved leukocytosis. 2 sets of peripheral blood cultures are negative. Tracheal secretions culture grows normal upper respiratory dwight. Discontinue vancomycin and continue IV Zosyn to complete a 7 day course. Supportive care and supplemental oxygen. Qualifiers: Pneumonia type: due to unspecified organism Laterality: unspecified laterality Lung location: unspecified part of lung Qualified Code(s): J18.9 - Pneumonia, unspecified organism (10) Tracheostomy in place Current Visit: Yes Status: Chronic - Subjective Interval history: Patient reports feeling better today. No chest pain, shortness of breath, improving cough. No bowel movements yet, cannot report melena or hematochezia. No nausea, vomiting, hematemesis. - Constitutional Vitals: Temp Pulse Resp BP Pulse Ox 98.3 F 66 16 137/62 100 08/21/17 16:38 08/21/17 16:38 08/21/17 16:38 08/21/17 16:38 08/21/17 16:38 General appearance: Present: A&O X 3, obese, answers questions appropriately - Respiratory Respiratory exam: Present: CTAB (Coarse breath sounds bilaterally, scattered rhonchi). Absent: accessory muscle use, rales, rhonchi, wheezes - Cardiovascular Cardiovascular exam: Present: RRR, +S1, +S2. Absent: diastolic murmur, gallop, rubs, systolic murmur - GI/Abdominal GI/Abdominal exam: Present: normal bowel sounds, soft (Obese), no peritoneal signs. Absent: distended, tenderness - Extremities Exam Extremities exam: Present: pedal edema (Trace dependent), warm, radial pulses palpable and symmetrical. Absent: calf tenderness, cyanotic - Neurological Exam Neurological exam: Present: CN II-XII intact, oriented X3, no focal deficits. Absent: pronater drift, facial droop, speech deficit Internal Medicine: Result - Labs CBC & Chem 7: 08/21/17 00:47 08/21/17 00:47 Labs: Short CBC 08/20/17 08/21/17 Range/Units 17:21 00:47 WBC 7.6 7.4 (4.3-11.1) K/mcL Hgb 8.4 L 7.6 L (11.5-15.4) g/dL Hct 27.0 L 24.2 L (35.3-44.9) % Plt Count 164 169 (140-400) K/mcL Neutrophils # 4.6 (1.6-8.9) K/mcL BMP 08/21/17 00:47 Sodium 140 Potassium 3.9 Chloride 105 Carbon Dioxide 32 H BUN 34 H Creatinine 1.26 H Glucose 118 H Calcium 8.2 L Cardiac Enzymes 08/21/17 08/21/17 08/21/17 Range/Units 00:47 04:54 11:19 Troponin I 3.89 H* 3.10 H* 2.82 H* (< 0.04) ng/mL - ABG Interpretation ABG results: PT/INR, D-dimer PT 12.9 Seconds (9.4-12.1) H 08/20/17 17:21 Consult Discharge Plan - Plan Referrals: Tera Mcintosh MD [Primary Care Provider] -
[2017-08-21] MEDS: Metoprolol 100 MG TABLET PO SCH (21:26)
[2017-08-22 05:37] LABS: Basophils % 0.6 %; Eosinophils # 0.7 K/mcL (0.0-0.6); Eosinophils % 9.4 %; Hematocrit 26.1 % (35.3-44.9); Hemoglobin 8.1 g/dL (11.5-15.4); Immature Granulocytes % 0.1 % (0-4); Lymphocytes # 1.5 K/mcL (0.6-4.6); Lymphocytes % 22.2 %; Mean Corpuscular Volume 96.7 fL (83.0-100.0); Mean Platelet Volume 11.4 fL (9.4-12.4); Monocytes # 0.7 K/mcL (0.0-1.3); Monocytes % 9.4 %; Platelet Count 183 K/mcL (140-400); Red Cell Distribution Width 13.7 % (11.5-14.5); Segmented Neutrophils % 58.3 %
[2017-08-22 06:09] LABS: BUN/Creatinine Ratio 24 (6-26); Blood Urea Nitrogen 22 mg/dL (8-23); Calcium 8.5 mg/dL (8.6-10.3); Carbon Dioxide 30 mEq/L (23-29); Chloride 108 mEq/L (98-107); Glucose 60 mg/dL (70-105); Magnesium 1.9 mg/dL (1.6-2.6); Osmolality,Calculated 297 (280-300); Potassium 3.9 mEq/L (3.5-5.1); Sodium 143 mEq/L (136-145); eGFR For African Americans > 60 (> 60); eGFR For Non-African Americans 59 (> 60)
--- NOTE | 2017-08-22 08:03 | Cardiology Progress Note ---
Date of Encounter: 08/22/17 Time of Encounter: 08:00 Assessment and Plan (1) Pneumonia Current Visit: Yes Status: Suspected Per Cardiology: Recently treated for pneumonia. Currently on antibiotics. Management per primary service. Qualifiers: Pneumonia type: due to unspecified organism Laterality: unspecified laterality Lung location: unspecified part of lung Qualified Code(s): J18.9 - Pneumonia, unspecified organism (2) Acute on chronic respiratory failure Current Visit: Yes Status: Acute Per Cardiology: History of tracheal stenosis with tracheostomy 2012 in setting of gallbladder surgery. Has trach. Management per primary service. Qualifiers: Respiratory failure complication: hypoxia and hypercapnia Qualified Code(s) : J96.21 - Acute and chronic respiratory failure with hypoxia; J96.22 - Acute and chronic respiratory failure with hypercapnia; J96.22 - Acute and chronic respiratory failure with hypercapnia; J96.22 - Acute and chronic respiratory failure with hypercapnia (3) Acute blood loss anemia Current Visit: Yes Status: Acute Per Cardiology: Occult stool positive. H&H slightly improved today. Off heparin drip. Continue aspirin and Plavix since patient had recent drug-eluting stent to proximal LAD 80% lesion July 2017. (4) Acute kidney injury Current Visit: Yes Status: Acute Per Cardiology: Presented with SILVIO. Off FLORENCIO inhibitor. Kidney function improved. Nephrology following. (5) Diastolic dysfunction Current Visit: Yes Status: Chronic Per Cardiology: Echo 07/2017 EF 45-50 with severe diastolic dysfunction with restrictive physiology, normal RV structure and function, mild MR, mild TR, mild [place], mild pulmonary hypertension. IV Lasix on hold. Net I&O -1765ml. Clinically improved and appears euvolemic on exam. (6) Elevated troponin Current Visit: Yes Status: Acute Per Cardiology: Recent hospital stay with peak troponin 21.75. Troponin downward trended to 0.20 and now peaked at 4.4. Chest pain-free. Catheterization from July 2017 showed drug-eluting stent to proximal LAD 80% lesion. Had remaining OM 2 90% lesion and 100% proximal RCA lesion with chronic occlusion and collaterals left to right. Current EF remains unchanged at 45-50%. Patient and agreeable to continue with medical management. No further testing warranted. Cardiology will sign off, reconsult as needed, will follow-up in outpatient setting. All questions answered. Stressed with Dr. Beltran. (7) CAD (coronary artery disease) Current Visit: Yes Status: Chronic Per Cardiology: Known history of CAD with CABG 3 in 1997 at [facility]. Recent catheterization as above. On aspirin, Plavix, statin, beta bess, long-acting nitrate. Off FLORENCIO inhibitor for now due to SILVIO. Qualifiers: Coronary Disease-Associated Artery/Lesion type: bypass graft [place] vs. transplanted heart: [place] heart Associated angina: without angina Qualified Code(s): I25.810 - Atherosclerosis of coronary artery bypass graft(s) without angina pectoris Discussion w patient/family: The assessment and plan as outlined above was discussed with the patient and/or family members who expressed understanding and agreement. All questions were answered. Thank you for involving us in the care of your patient. Please call with any questions. Subjective Principal diagnosis: NSTEMI Interval history: Patient denies any chest pain. Denies any active bleeding or blood loss. Reports had one episode of nausea yesterday evening. Objective Vital Signs, Last 4 Hours Temp Pulse Resp BP Pulse Ox 08/22/17 07:40 100 08/22/17 06:49 98.0 F 60 17 145/71 100 08/22/17 04:39 97.9 F 66 17 128/66 98 General: Conversant, No Apparent Distress Cardiac: Reg Rate and Rhythm, Normal S1 and S2, No Murmur Lungs: Normal Breath Sounds, No Wheeze, Rales, Rhonchi Neuro: Alert and responsive, No focal deficits noted Musculoskeletal: Other (Up OOB to chair) Results 08/22/17 05:20 08/22/17 05:20 Lab Results Laboratory Tests 08/18/17 08/18/17 08/20/17 09:50 23:20 15:44 Hgb Hct Creatinine Est GFR (Non-Af Amer) Troponin I 0.20 H* 0.80 H* 4.44 H* Stool Occult Blood 08/21/17 08/21/17 08/21/17 00:47 04:54 10:25 Hgb Hct Creatinine Est GFR (Non-Af Amer) Troponin I 3.89 H* 3.10 H* Stool Occult Blood Positive A 08/21/17 08/22/17 08/22/17 11:19 05:20 05:20 Hgb 8.1 L Hct 26.1 L Creatinine 0.93 Est GFR (Non-Af Amer) 59 L Troponin I 2.82 H* Stool Occult Blood Active Medications Aspirin (Aspirin Ec) 81 mg PO DAILY YAS Stop: 02/18/18 09:01 Last Admin: 08/21/17 09:33 Dose: 81 mg Atorvastatin Calcium (Lipitor) 40 mg PO HS YAS Stop: 02/18/18 21:01 Last Admin: 08/21/17 21:26 Dose: 40 mg Clopidogrel Bisulfate (Plavix) 75 mg PO DAILY YAS Stop: 02/18/18 09:01 Last Admin: 08/21/17 09:33 Dose: 75 mg Furosemide (Lasix) 40 mg IVP BIDDIURETIC YAS Stop: 02/18/18 04:32 Last Admin: 08/20/17 09:55 Dose: Not Given Gabapentin (Neurontin) 100 mg PO TID YAS Stop: 02/18/18 09:01 Last Admin: 08/21/17 21:26 Dose: 100 mg Guaifenesin (Mucinex) 600 mg PO BID PRN PRN Reason: Congestion Stop: 02/18/18 03:44 Hydroxyzine HCl (Hydroxyzine) 10 mg PO HS YAS Stop: 02/18/18 21:01 Last Admin: 08/21/17 21:26 Dose: 10 mg Piperacillin Sod/Tazobactam (Sod 3.375 gm/ Sodium Chloride) 100 mls @ 25 mls/ hr IVPB Q8H YAS Stop: 02/18/18 13:01 Last Admin: 08/22/17 05:00 Dose: 25 mls/hr Isosorbide Mononitrate (Imdur) 180 mg PO DAILY [facility] Stop: 02/21/18 09:01 Levalbuterol HCl (Xopenex) 0.63 mg IH [id number] YAS Stop: 02/18/18 10:01 Last Admin: 08/21/17 22:16 Dose: 0.63 mg Metoprolol Tartrate (Lopressor) 100 mg PO HS [facility] Stop: 02/18/18 21:01 Last Admin: 08/21/17 21:26 Dose: 100 mg Metoprolol Tartrate (Lopressor) 50 mg PO DAILY YAS Stop: 02/18/18 09:01 Last Admin: 08/21/17 09:33 Dose: 50 mg Naloxone HCl (Narcan) 0.4 mg IVP Q2MIN PRN PRN Reason: SEE COMMENTS Stop: 02/18/18 03:46 Ondansetron HCl (Zofran) 4 mg IVP Q6HR PRN; Protocol PRN Reason: Nausea And Vomiting Stop: 02/18/18 12:57 Last Admin: 08/21/17 18:54 Dose: 4 mg Pharmacy Profile Note (Patient Taking Own Medication) 1 each [facility] DAILY YAS Stop: 02/18/18 09:01 Last Admin: 08/21/17 09:33 Dose: Not Given Ropinirole HCl (Requip) 3 mg PO HS YAS Stop: 02/18/18 21:01 Last Admin: 08/21/17 21:26 Dose: 3 mg - Imaging and Cardiology Echo: report reviewed - EKG Interpretation EKG results cardiology: other (Telemetry review with average heart rate passed 12 hour 66, currently sinus rhythm in the 60s, no evidence noted) Consult Discharge Plan - Plan Referrals: Tera Mcintosh MD [Primary Care Provider] -
--- NOTE | 2017-08-22 09:54 | Nephrology Progress Note ---
Date of Encounter: 08/22/17 Time of Encounter: 09:45 - Assessment and Plan (1) Acute kidney injury Current Visit: Yes Status: Acute SILVIO most likely in setting of acute on chronic respiratory failure, decreased oral intake along with GI losses and continued diuretic use. Renal fct back to normal, creat 0.93. Documented urine output 1200 cc. Noted cardiology plan to medical manage. Will sign off, call again if needed. Subjective Principal diagnosis: NSTEMI Interval history: Sitting up in chair, states feeling better. Denies chest pain. Objective - Vital Signs Vital signs: Vital Signs Temp Pulse Resp BP Pulse Ox 08/22/17 07:40 100 08/22/17 06:49 98.0 F 60 17 145/71 100 08/22/17 04:39 97.9 F 66 17 128/66 98 08/22/17 00:08 98 F 73 17 137/70 96 08/21/17 22:16 17 100 08/21/17 21:10 98.6 F 70 16 146/66 99 08/21/17 16:38 98.3 F 66 16 137/62 100 08/21/17 11:21 98.3 F 60 16 121/66 100 Intake and Output 08/21/17 08/22/17 08/22/17 23:59 07:59 15:59 Intake Total 100 / 100 220 / 220 120 / 120 Output Total 400 / 400 750 / 750 Balance -300 / -300 -530 / -530 120 / 120 Intake: IV Fluids 100 / 100 100 / 100 Zosyn 3.375 GM In 0.9 % Sodium 100 / 100 100 / 100 Chloride 100 ML @ 25 mls/hr IVPB Q8H [facility] Rx#:[id number] Oral 120 / 120 120 / 120 Output: Urine 400 / 400 750 / 750 Other: Meal Breakfast Percent of Meal Consumed 25% Weight 86.9 kg Blood Glucose* 200 67 Patient Weight 08/22/17 23:59 Weight 86.9 kg - General Appearance General appearance: Present: well-developed, well-nourished, appears started age EENT: Present: mucous membranes moist Neck: Present: no JVD Additional Comments: harsh B/L Cardiology: Present: no edema, regular rate, regular rhythm Gastrointestinal: Present: normoactive bowel sounds, no tenderness Integumentary: Present: warm and dry Neurologic: Present: alert and oriented x3 - Lab 08/22/17 05:20 08/22/17 05:20 Most recent lab results Calcium 8.5 mg/dL (8.6-10.3) L 08/22/17 05:20 Magnesium 1.9 mg/dL (1.6-2.6) 08/22/17 05:20 Urine Creatinine 146 mg/dL 08/20/17 11:45 Urine Total Protein 34 mg/dL 08/20/17 11:45 Consult Discharge Plan - Plan Referrals: Tera Mcintosh MD [Primary Care Provider] -
[2017-08-22] MEDS: Isosorbide MONOnitrate (24 HR) 60 MG TAB.ER.24H PO SCH (10:17)
[2017-08-22] MEDS: Aspirin Enteric Coated 81 MG Tablet PO SCH (10:17)
[2017-08-22] MEDS: Gabapentin 100 MG CAPSULE PO SCH ×3 (10:17→19:58)
[2017-08-22] MEDS: Subcutaneous Insulin Pump [T:Slim] 1 EACH MC SCH (10:17)
[2017-08-22] MEDS: Levalbuterol Neb 0.63 MG/3 ML IH SCH ×2 (10:41→21:07)
--- NOTE | 2017-08-22 12:24 | Internal Med Progress Note ---
Date of Encounter: 08/22/17 Time of Encounter: 12:21 - Subjective Interval history: Patient seen and examined at bedside. Resting in bed and reports of feeling week. States she is not able to ambulate too well and is scared of falling Noted to be requiring higher doses of oxygen than her baseline. will restart home dose of lasix Will obtain PT evaluation Assessment and plan (1) Acute kidney injury Current Visit: Yes Status: Acute Assessment and plan: Likely secondary to diuresis renal function back to baseline noted to have good urine output will restart lasix PO at a lower dose (Home dose of 20mg PO qd) will closely monitor renal function (2) Acute on chronic respiratory failure Current Visit: Yes Status: Acute Assessment and plan: Patient is on home oxygen due to underlying COPD. Oxygen requirements at 8 L/m via tracheostomy collar. Being treated for acute CHF and possible pneumonia. Overall clinically improving Qualifiers: Respiratory failure complication: hypoxia and hypercapnia Qualified Code(s) : J96.21 - Acute and chronic respiratory failure with hypoxia; J96.22 - Acute and chronic respiratory failure with hypercapnia; J96.22 - Acute and chronic respiratory failure with hypercapnia; J96.22 - Acute and chronic respiratory failure with hypercapnia (3) Elevated troponin Current Visit: Yes Status: Acute Assessment and plan: Cardiology evaluation appreciated Medical management recommended continue ASA, Plavix, BB, statin (4) Acute CHF Current Visit: Yes Status: Acute Assessment and plan: Restart home dose of lasix as pt is not able to tolerate aggressive diuresis given renal function noted to be requiring higher oxygen dose compared to home oxygen will continue to closely monitor Qualifiers: Heart failure type: combined systolic and diastolic Qualified Code(s): I50.9 - Heart failure, unspecified (5) Chronic kidney disease Current Visit: Yes Status: Chronic Qualifiers: Chronic kidney disease stage: stage 3 (moderate) Qualified Code(s): N18.3 - Chronic kidney disease, stage 3 (moderate) (6) CAD (coronary artery disease) Current Visit: Yes Status: Chronic Assessment and plan: Continue aspirin, Plavix, statin, beta bess, Imdur. will restart home dose of Felix-inh since renal function improved Qualifiers: Coronary Disease-Associated Artery/Lesion type: bypass graft [place] vs. transplanted heart: [place] heart Associated angina: without angina Qualified Code(s): I25.810 - Atherosclerosis of coronary artery bypass graft(s) without angina pectoris (7) COPD (chronic obstructive pulmonary disease) Current Visit: Yes Status: Chronic Assessment and plan: Not in acute exacerbation. Continue when necessary bronchodilators and supplemental oxygen. Qualifiers: COPD type: unspecified COPD Qualified Code(s): J44.9 - Chronic obstructive pulmonary disease, unspecified (8) Diabetes mellitus Current Visit: Yes Status: Chronic Assessment and plan: BG within acceptable range continue sliding scale insulin algorithm monitor FS and BG ADA diet Qualifiers: Diabetes mellitus type: type 2 Diabetes mellitus complication status: with unspecified complications Diabetes mellitus roasterman insulin use: with roasterman use Qualified Code(s): E11.8 - Type 2 diabetes mellitus with unspecified complications; Z79.4 - ferry terminal agent (current) use of insulin; Z79.4 - senior living ( current) use of insulin; Z79.4 - senior living (current) use of insulin; Z79.4 - senior living (current) use of insulin (9) Pneumonia Current Visit: Yes Status: Suspected Assessment and plan: CT chest reviewed-showed moderate bilateral pleural effusions with significant opacities and interstitial edema, underlying by basilar pneumonia cannot be excluded. Clinically improving will continue IV abx (Zosyn day 10/14) Supportive care and supplemental oxygen. Qualifiers: Pneumonia type: due to unspecified organism Laterality: unspecified laterality Lung location: unspecified part of lung Qualified Code(s): J18.9 - Pneumonia, unspecified organism (10) Tracheostomy in place Current Visit: Yes Status: Chronic (11) DVT prophylaxis: SCD - Constitutional Vitals: Temp Pulse Resp BP Pulse Ox 97.7 F 62 16 131/50 95 08/22/17 11:12 08/22/17 11:12 08/22/17 11:12 08/22/17 11:12 08/22/17 11:12 General appearance: Present: A&O X 3, no acute distress, obese, answers questions appropriately - Head Head exam: Present: atraumatic, normocephalic - Neck Additional comments: trach collar in place - Respiratory Respiratory exam: Present: decreased breath sounds. Absent: respiratory distress, wheezes - Cardiovascular Cardiovascular exam: Present: RRR, +S1, +S2. Absent: diastolic murmur, gallop, rubs, systolic murmur - GI/Abdominal GI/Abdominal exam: Present: normal bowel sounds, soft, no peritoneal signs. Absent: distended, tenderness - Extremities Exam Extremities exam: Present: pedal edema (trace pedal edema), warm, radial pulses palpable and symmetrical. Absent: calf tenderness - Neurological Exam Neurological exam: Present: alert, oriented X3 Internal Medicine: Result - Labs CBC & Chem 7: 08/22/17 05:20 08/22/17 05:20 Labs: Short CBC 08/22/17 Range/Units 05:20 WBC 6.9 (4.3-11.1) K/mcL Hgb 8.1 L (11.5-15.4) g/dL Hct 26.1 L (35.3-44.9) % Plt Count 183 (140-400) K/mcL Neutrophils # 4.0 (1.6-8.9) K/mcL BMP 08/22/17 05:20 Sodium 143 Potassium 3.9 Chloride 108 H Carbon Dioxide 30 H BUN 22 Creatinine 0.93 Glucose 60 L Calcium 8.5 L - ABG Interpretation ABG results: PT/INR, D-dimer PT 12.9 Seconds (9.4-12.1) H 08/20/17 17:21 - Impressions Impressions Echocardiogram Limited Views 08/21/17 11:47 Impressions: LVEF 45-50%. Mild segmental left ventricular systolic dysfunction. Atypical septal motion consistent with post-operative status. Left Ventricular Wall Motion: Rest Echo Findings The basal inferior and basal inferior septal mar were akinetic. All other wall segments showed normal motion. Findings: Study Quality * Technically adequate exam. ECG Findings * Normal sinus rhythm. Left Ventricle * LVEF 45-50%. * Normal LV chamber size. * Mild segmental left ventricular systolic dysfunction. * Atypical septal motion consistent with post-operative status. Right Ventricle * Normal right ventricular structure and function. Consult Discharge Plan - Plan Referrals: Tera Mcintosh MD [Primary Care Provider] -
[2017-08-22] MEDS: Furosemide 20 MG TABLET PO SCH (12:54)
[2017-08-22] MEDS ORDERED: D5% in Water 1,000 ML IVC PRN (15:51)
[2017-08-22] MEDS ORDERED: *HR* Dextrose 50 % in Water (Syg) 50 ML SYRINGE IVP PRN (15:51)
[2017-08-22] MEDS ORDERED: Dextrose Gel 15 GM/37.5 ML TUBE PO PRN ×2 (15:51)
[2017-08-22] MEDS: *HR* Heparin 5,000 UNIT/ML VIAL SQ SCH (17:22)
[2017-08-23 04:14] LABS: Basophils % 0.5 %; Eosinophils # 0.6 K/mcL (0.0-0.6); Eosinophils % 9.8 %; Hematocrit 24.8 % (35.3-44.9); Hemoglobin 7.7 g/dL (11.5-15.4); Immature Granulocytes % 0.3 % (0-4); Lymphocytes # 1.4 K/mcL (0.6-4.6); Lymphocytes % 24.4 %; Mean Corpuscular Hemoglobin 30.2 pg (28.0-33.3); Mean Corpuscular Volume 97.3 fL (83.0-100.0); Mean Platelet Volume 11.2 fL (9.4-12.4); Monocytes # 0.5 K/mcL (0.0-1.3); Monocytes % 8.4 %; Neutrophils # 3.3 K/mcL (1.6-8.9); Platelet Count 180 K/mcL (140-400); Red Blood Count 2.55 M/mcL (3.82-4.97); Red Cell Distribution Width 13.7 % (11.5-14.5); Segmented Neutrophils % 56.6 %
[2017-08-23 04:42] LABS: BUN/Creatinine Ratio 17 (6-26); Blood Urea Nitrogen 16 mg/dL (8-23); Calcium 8.9 mg/dL (8.6-10.3); Carbon Dioxide 32 mEq/L (23-29); Chloride 106 mEq/L (98-107); Glucose 105 mg/dL (70-105); Osmolality,Calculated 296 (280-300); Phosphorous 3.7 mg/dL (2.7-4.5); Potassium 3.9 mEq/L (3.5-5.1); Sodium 142 mEq/L (136-145); eGFR For African Americans > 60 (> 60); eGFR For Non-African Americans 59 (> 60)
[2017-08-23] MEDS: *HR* Heparin 5,000 UNIT/ML VIAL SQ SCH (05:14)
[2017-08-23] MEDS ORDERED: Furosemide 20 MG TABLET PO SCH (09:00)
[2017-08-23] MEDS: Gabapentin 100 MG CAPSULE PO SCH ×3 (09:10→21:29)
[2017-08-23] MEDS: Isosorbide MONOnitrate (24 HR) 60 MG TAB.ER.24H PO SCH (09:10)
[2017-08-23] MEDS: Lisinopril 20 MG TABLET PO SCH (09:10)
[2017-08-23] MEDS: Aspirin Enteric Coated 81 MG Tablet PO SCH (09:10)
[2017-08-23] MEDS: Subcutaneous Insulin Pump [T:Slim] 1 EACH MC SCH ×2 (09:11→11:25)
[2017-08-23] MEDS: Furosemide 20 MG TABLET PO SCH (09:11)
[2017-08-23] MEDS: Levalbuterol Neb 0.63 MG/3 ML IH SCH ×2 (10:43→21:55)
--- NOTE | 2017-08-23 14:17 | Internal Med Progress Note ---
Date of Encounter: 08/23/17 Time of Encounter: 14:14 - Assessment and plan (1) Acute blood loss anemia Current Visit: Yes Status: Acute Assessment and plan: Acute blood lows anemia likely secondary to GI bleed, unknown source The patient was initially reluctant to being evaluated by the GI service, now agreeable to possibly have an EGD versus colonoscopy Not actively bleeding Stop subcutaneous heparin, start omeprazole, may switch to Protonix if needed Consider stopping aspirin and Plavix Monitor CBC, consider transfusion (2) Acute on chronic respiratory failure Current Visit: Yes Status: Acute Assessment and plan: Acute on chronic hypoxic respiratory failure secondary to acute COPD exacerbation due to possible healthcare associated pneumonia present upon admission and systolic CHF exacerbation Continue Zosyn day 5 Patient is on home oxygen due to underlying COPD. Continue Lasix Ejection fraction of 45-50% tracheostomy collar. Qualifiers: Respiratory failure complication: hypoxia and hypercapnia Qualified Code(s) : J96.21 - Acute and chronic respiratory failure with hypoxia; J96.22 - Acute and chronic respiratory failure with hypercapnia; J96.22 - Acute and chronic respiratory failure with hypercapnia; J96.22 - Acute and chronic respiratory failure with hypercapnia (3) Elevated troponin Current Visit: Yes Status: Acute Assessment and plan: Possible non-ST elevation CT. Patient's Troponin went up to 4.44, from 0.8; She is not on IV Heparin drip anymore, continued on ASA, Plavix, statin, beta bess; Cardiology consulted occult blood positive stool. patient recently had non-ST elevation CT, status post drug-eluting stent in the proximal LAD (4) CAD (coronary artery disease) Current Visit: Yes Status: Chronic Assessment and plan: Continue aspirin, Plavix, statin, beta bess, Imdur. Qualifiers: Coronary Disease-Associated Artery/Lesion type: bypass graft [place] vs. transplanted heart: [place] heart Associated angina: without angina Qualified Code(s): I25.810 - Atherosclerosis of coronary artery bypass graft(s) without angina pectoris (5) Chronic kidney disease Current Visit: Yes Status: Chronic Assessment and plan: Acute on chronic renal failure, history of chronic kidney disease of stage III Improved. Outpatient nephrology follow-up. Qualifiers: Chronic kidney disease stage: stage 3 (moderate) Qualified Code(s): N18.3 - Chronic kidney disease, stage 3 (moderate) (6) Diabetes mellitus Current Visit: Yes Status: Chronic Assessment and plan: Continue Accu-Chek blood glucose monitoring with sliding scale insulin as needed. Diabetic diet. Qualifiers: Diabetes mellitus type: type 2 Diabetes mellitus complication status: with unspecified complications Diabetes mellitus terminologist insulin use: with snf use Qualified Code(s): E11.8 - Type 2 diabetes mellitus with unspecified complications; Z79.4 - longterm (current) use of insulin; Z79.4 - computer terminal operator ( current) use of insulin; Z79.4 - longterm (current) use of insulin; Z79.4 - computer terminal operator (current) use of insulin (7) Diastolic dysfunction Current Visit: Yes Status: Chronic (8) Tracheostomy in place Current Visit: Yes Status: Chronic (9) Pneumonia Current Visit: Yes Status: Suspected Assessment and plan: CT chest reviewed-showed moderate bilateral pleural effusions with significant opacities and interstitial edema, underlying by basilar pneumonia cannot be excluded. Discontinued vancomycin and continue IV Zosyn Qualifiers: Pneumonia type: due to unspecified organism Laterality: unspecified laterality Lung location: unspecified part of lung Qualified Code(s): J18.9 - Pneumonia, unspecified organism - Subjective Interval history: The patient is a still feeling short of breath, coughing constantly, secretions have improved from tracheostomy. Denies any abdominal pain, no active bleeding. Accepted to be seen by the GI service. Denies any fevers, no chest pain - Constitutional Vitals: Temp Pulse Resp BP Pulse Ox 97.7 F 65 16 152/60 97 08/23/17 10:00 08/23/17 10:00 08/23/17 10:44 08/23/17 10:00 08/23/17 10:44 General appearance: Present: A&O X 3, no acute distress, obese, answers questions appropriately - Head Head exam: Present: atraumatic, normocephalic Additional comments: Tracheostomy in place - Eye Eye exam: Present: PERRL, conjuntiva pink, sclera anicteric Pupils: Present: PERRL - Neck Neck exam general surgery: Present: supple, trachea midline. Absent: lymphadenopathy - Respiratory Respiratory exam: Present: decreased breath sounds, CTAB. Absent: accessory muscle use, rales, rhonchi, wheezes - Cardiovascular Cardiovascular exam: Present: RRR, +S1, +S2. Absent: diastolic murmur, gallop, rubs, systolic murmur - GI/Abdominal GI/Abdominal exam: Present: distended, normal bowel sounds, soft, no peritoneal signs. Absent: tenderness - Extremities Exam Extremities exam: Present: warm, radial pulses palpable and symmetrical. Absent : calf tenderness, cyanotic, pedal edema - Neurological Exam Neurological exam: Present: CN II-XII intact, oriented X3, no focal deficits. Absent: pronater drift, facial droop, speech deficit - Skin Skin exam: Present: dry, intact Internal Medicine: Result - Labs CBC & Chem 7: 08/23/17 04:00 08/23/17 04:00 Labs: Short CBC 08/23/17 Range/Units 04:00 WBC 5.8 (4.3-11.1) K/mcL Hgb 7.7 L (11.5-15.4) g/dL Hct 24.8 L (35.3-44.9) % Plt Count 180 (140-400) K/mcL Neutrophils # 3.3 (1.6-8.9) K/mcL BMP 08/23/17 04:00 Sodium 142 Potassium 3.9 Chloride 106 Carbon Dioxide 32 H BUN 16 Creatinine 0.93 Glucose 105 Calcium 8.9 - ABG Interpretation ABG results: PT/INR, D-dimer PT 12.9 Seconds (9.4-12.1) H 08/20/17 17:21 Consult Discharge Plan - Plan Referrals: Tera Mcintosh MD [Primary Care Provider] - 08/29/17 11:00 am (Please follow up as schedule..)
[2017-08-23] MEDS: MethylPREDNISolone 40 MG/ML VIAL IVP SCH ×2 (16:02→23:50)
[2017-08-24 05:06] LABS: Hematocrit 27.2 % (35.3-44.9); Hemoglobin 8.3 g/dL (11.5-15.4); Mean Corpuscular HGB Conc 30.5 g/dL (31.6-35.5); Mean Corpuscular Hemoglobin 29.4 pg (28.0-33.3); Mean Corpuscular Volume 96.5 fL (83.0-100.0); Mean Platelet Volume 11.3 fL (9.4-12.4); Platelet Count 202 K/mcL (140-400); Red Blood Count 2.82 M/mcL (3.82-4.97); Red Cell Distribution Width 13.5 % (11.5-14.5)
[2017-08-24 05:36] LABS: BUN/Creatinine Ratio 17 (6-26); Blood Urea Nitrogen 15 mg/dL (8-23); Calcium 8.9 mg/dL (8.6-10.3); Carbon Dioxide 31 mEq/L (23-29); Chloride 106 mEq/L (98-107); Glucose 202 mg/dL (70-105); Osmolality,Calculated 301 (280-300); Potassium 4.2 mEq/L (3.5-5.1); Sodium 142 mEq/L (136-145); eGFR For African Americans > 60 (> 60); eGFR For Non-African Americans > 60 (> 60)
[2017-08-24] MEDS: MethylPREDNISolone 40 MG/ML VIAL IVP SCH ×2 (09:24→21:53)
[2017-08-24] MEDS: Furosemide 20 MG TABLET PO SCH (09:24)
[2017-08-24] MEDS: Isosorbide MONOnitrate (24 HR) 60 MG TAB.ER.24H PO SCH (09:24)
[2017-08-24] MEDS: Aspirin Enteric Coated 81 MG Tablet PO SCH (09:24)
[2017-08-24] MEDS: Gabapentin 100 MG CAPSULE PO SCH ×3 (09:24→21:52)
[2017-08-24] MEDS: Subcutaneous Insulin Pump [T:Slim] 1 EACH MC SCH (09:25)
[2017-08-24] MEDS: Lisinopril 20 MG TABLET PO SCH (09:25)
--- NOTE | 2017-08-24 09:25 | Internal Med Progress Note ---
Date of Encounter: 08/24/17 Time of Encounter: 09:25 - Assessment and plan (1) Acute blood loss anemia Current Visit: Yes Status: Acute Assessment and plan: Acute blood lows anemia likely secondary to GI bleed, unknown source The patient was initially reluctant to being evaluated by the GI service, now agreeable to possibly have an EGD versus colonoscopy Hb has dropped down 7-8 from a baseline of 12 back in May 2017 Positive hemoccult Not actively bleeding Stopped subcutaneous heparin, start Protonix IV NPO for possible EGD GI consult Consider stopping aspirin and Plavix Monitor CBC, consider transfusion (2) Acute on chronic respiratory failure Current Visit: Yes Status: Acute Assessment and plan: Acute on chronic hypoxic respiratory failure secondary to acute COPD exacerbation due to possible healthcare associated pneumonia present upon admission and systolic CHF exacerbation Continue Zosyn day 6 Patient is on home oxygen due to underlying COPD. Continue Lasix Ejection fraction of 45-50% tracheostomy collar. Qualifiers: Respiratory failure complication: hypoxia and hypercapnia Qualified Code(s) : J96.21 - Acute and chronic respiratory failure with hypoxia; J96.22 - Acute and chronic respiratory failure with hypercapnia; J96.22 - Acute and chronic respiratory failure with hypercapnia; J96.22 - Acute and chronic respiratory failure with hypercapnia (3) Elevated troponin Current Visit: Yes Status: Acute Assessment and plan: Possible non-ST elevation [place]. Patient's Troponin went up to 4.44, from 0.8; She is not on IV Heparin drip anymore, continued on ASA, Plavix, statin, beta bess; Cardiology consulted occult blood positive stool. patient recently had non-ST elevation [place], status post drug-eluting stent in the proximal LAD (4) CAD (coronary artery disease) Current Visit: Yes Status: Chronic Assessment and plan: Continue aspirin, Plavix, statin, beta bess, Imdur. Qualifiers: Coronary Disease-Associated Artery/Lesion type: bypass graft [place] vs. transplanted heart: [place] heart Associated angina: without angina Qualified Code(s): I25.810 - Atherosclerosis of coronary artery bypass graft(s) without angina pectoris (5) Chronic kidney disease Current Visit: Yes Status: Chronic Assessment and plan: Acute on chronic renal failure, history of chronic kidney disease of stage III Improved. Outpatient nephrology follow-up. Qualifiers: Chronic kidney disease stage: stage 3 (moderate) Qualified Code(s): N18.3 - Chronic kidney disease, stage 3 (moderate) (6) Diabetes mellitus Current Visit: Yes Status: Chronic Assessment and plan: Continue Accu-Chek blood glucose monitoring with sliding scale insulin as needed. Diabetic diet. Qualifiers: Diabetes mellitus type: type 2 Diabetes mellitus complication status: with unspecified complications Diabetes mellitus buttermaker continuous churn insulin use: with buttermaker continuous churn use Qualified Code(s): E11.8 - Type 2 diabetes mellitus with unspecified complications; Z79.4 - [place] (current) use of insulin; Z79.4 - ferry terminal agent ( current) use of insulin; Z79.4 - ferry terminal agent (current) use of insulin; Z79.4 - half-way (current) use of insulin (7) Diastolic dysfunction Current Visit: Yes Status: Chronic (8) Tracheostomy in place Current Visit: Yes Status: Chronic (9) Pneumonia Current Visit: Yes Status: Suspected Assessment and plan: CT chest reviewed-showed moderate bilateral pleural effusions with significant opacities and interstitial edema, underlying by basilar pneumonia cannot be excluded. Discontinued vancomycin and continue IV Zosyn Qualifiers: Pneumonia type: due to unspecified organism Laterality: unspecified laterality Lung location: unspecified part of lung Qualified Code(s): J18.9 - Pneumonia, unspecified organism - Subjective Interval history: The patient is feeling less short of breath, coughing, secretions have improved from tracheostomy. Denies any abdominal pain, no active bleeding. Accepted to be seen by the GI service. Denies any fevers, no chest pain - Constitutional Vitals: Temp Pulse Resp BP Pulse Ox 98.1 F 63 16 126/44 99 08/24/17 06:49 08/24/17 06:49 08/24/17 06:49 08/24/17 06:49 08/24/17 06:49 General appearance: Present: A&O X 3, no acute distress, obese, answers questions appropriately Exam: - Head Head exam: Present: atraumatic, normocephalic Additional comments: Tracheostomy in place - Eye Eye exam: Present: PERRL, conjuntiva pink, sclera anicteric Pupils: Present: PERRL - Neck Neck exam general surgery: Present: supple, trachea midline. Absent: lymphadenopathy - Respiratory Respiratory exam: Present: decreased breath sounds, CTAB. Absent: accessory muscle use, rales, rhonchi, wheezes - Cardiovascular Cardiovascular exam: Present: RRR, +S1, +S2. Absent: diastolic murmur, gallop, rubs, systolic murmur - GI/Abdominal GI/Abdominal exam: Present: distended, normal bowel sounds, soft, no peritoneal signs. Absent: tenderness - Extremities Exam Extremities exam: Present: warm, radial pulses palpable and symmetrical. Absent : calf tenderness, cyanotic, pedal edema - Neurological Exam Neurological exam: Present: CN II-XII intact, oriented X3, no focal deficits. Absent: pronater drift, facial droop, speech deficit - Skin Skin exam: Present: dry, intact Internal Medicine: Result - Labs CBC & Chem 7: 08/24/17 04:45 08/24/17 04:45 Labs: Short CBC 08/24/17 Range/Units 04:45 WBC 6.9 (4.3-11.1) K/mcL Hgb 8.3 L (11.5-15.4) g/dL Hct 27.2 L (35.3-44.9) % Plt Count 202 (140-400) K/mcL [facility] 08/24/17 04:45 Sodium 142 Potassium 4.2 Chloride 106 Carbon Dioxide 31 H BUN 15 Creatinine 0.87 Glucose 202 H Calcium 8.9 - ABG Interpretation ABG results: PT/INR, D-dimer PT 12.9 Seconds (9.4-12.1) H 08/20/17 17:21 - VTE Documentation of Mechanical Device: Intermittent pneumatic compression device Consult Discharge Plan - Plan Referrals: Tera Mcintosh MD [Primary Care Provider] - 08/29/17 11:00 am (Please follow up as schedule..)
[2017-08-24] MEDS: Pantoprazole 40 MG VIAL IVP SCH ×2 (09:43→17:58)
[2017-08-24] MEDS: Levalbuterol Neb 0.63 MG/3 ML IH SCH ×2 (10:42→22:51)
--- NOTE | 2017-08-24 13:33 | Gastroenterology Consult Note ---
<Viridiana Knight - Last Filed: 08/24/17 13:41> Date of Encounter: 08/24/17 Time of Encounter: 11:00 - Assessment and plan (1) Anemia Current Visit: Yes Status: Acute Assessment and plan: 72 year old female who presents with increased SOA. She was found to be anemic with a hgb 8.3. She denies any active bleeding, black or tarry stools. She is on ASA and plavix for recent ANASTASIYA placement. She refused EGD wants to wait til tomorrow after she talks it over with her . Will keep pt on clear liquids and plan on EGD and colonoscopy tomorrow. Qualifiers: Anemia type: unspecified type Qualified Code(s): D64.9 - Anemia, unspecified - Time Spent With Patient Total time spent is greater than 50% in coordination of care (as documented) at patient's floor/unit and/or counseling patient: GI History of Present Illness - Data of Consult Patient: new to practice Consult date: 08/24/17 Requesting Physician: Wilmer Freeman - Consult Narrative Reason for consult: anemia History of present illness: Ms. 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 She has been on ASA/plavix.. She represents for acute on chronic worsening of SOB associated with left flank discomfort. She developed SOB that has been worse and had to increase her oxygen to 7 L (from 5 L baseline). Her HR was noted to be in in 130s which prompted ED visit. She was found to have a Hgb 8.3. She denies active bleeding. She denies nausea, vomiting. She had abdominal pain a few days ago but is resolved. She denies bloody or tarry stools. She denies NSAID use. Colonoscopy: denies EGD: denies NSAIDS/ASA:asa Anticoagulants: plavix Past Med Surg Social Fam HX - Past Medical History Medical history: CHF, coronary artery disease, diabetes, hyperlipidemia, hypertension, other Psychiatric history: anxiety - Past Surgical History Surgical History: angioplasty/stent, cholecystectomy, coronary bypass (CABG), hysterectomy, orthopedic, other, other - Social History Smoking Status: Former smoker Smokeless Tobacco Status: No Alcohol use: rarely Drug use: none - Family History Mother Family Member Ethnicity: Non- Living Status: Age at : 72 Hx Family Cardiac Disorders: Yes Hx Family Endocrine Disorder: Yes - Gastrointestinal Additional Comments: GI: as per [facility]: denies fever or chills EYES: denies yellow discoloration ENT: denies pain or swallowing or difficulty swallowing CARDIO: see HPI RESP: chronic Shortness of breath with exertion, on trach collar at home : denies change in color of urine NEURO: denies any weakness HEME: Denies any bruising MS: chronic back and joint pain. DERM: denies rash or itching PSYCH: history of anxiety and depression - Constitutional Vitals: Temp Pulse Resp BP Pulse Ox 97.6 F 57 14 114/52 99 08/24/17 11:51 08/24/17 11:51 08/24/17 11:51 08/24/17 11:51 08/24/17 11:51 Exam: CONSTITUTIONAL:~alert, no acute distress.~HEAD:~normocephalic.~EYES:~no jaundice.~NECK:~no obvious swelling, tracheostomy in place with nor redness or drainage noted, connected to trach collar.~HEART:~regular rate and rhythm, no murmurs.~LUNGS:~bilateral fair air entry.~ABDOMEN:~non distended, soft, non tender, no masses palpable, no organomegaly.~RECTAL EXAM:~Deferred.~EXTREMITIES: ~no clubbing, cyanosis or edema.~SKIN:~no stigmata of chronic liver disease.~ NEUROLOGIC:~no obvious focal defect.~~~~ Results - Labs CBC & Chem 7: 08/24/17 04:45 08/24/17 04:45 Labs: Last Result Calcium 8.9 mg/dL (8.6-10.3) 08/24/17 04:45 Troponin I 2.82 ng/mL (< 0.04) H* 08/21/17 11:19 Stool Occult Blood Positive (Negative) A 08/21/17 10:25 Entire Visit Hgb 8.3 g/dL (11.5-15.4) L 08/24/17 04:45 Hct 27.2 % (35.3-44.9) L 08/24/17 04:45 PT 12.9 Seconds (9.4-12.1) H 08/20/17 17:21 - ABG ABG results: PT/INR, D-dimer PT 12.9 Seconds (9.4-12.1) H 08/20/17 17:21 Consult Discharge Plan - Plan Referrals: Tera Mcintosh MD [Primary Care Provider] - 08/29/17 11:00 am (Please follow up as schedule..) <Dax Barney - Last Filed: 08/24/17 21:08> Date of Encounter: 08/24/17 Time of Encounter: 17:00 - Time Spent With Patient Total time spent is greater than 50% in coordination of care (as documented) at patient's floor/unit and/or counseling patient: GI History of Present Illness - Data of Consult Requesting Physician: Wilmer Freeman - Consult Narrative History of present illness: Ms. Valero is a 72 year old female - Constitutional Vitals: Temp Pulse Resp BP Pulse Ox 97.8 F 65 18 139/54 100 08/24/17 19:44 08/24/17 19:44 08/24/17 19:44 08/24/17 19:44 08/24/17 19:44 Results - Labs CBC & Chem 7: 08/24/17 04:45 08/24/17 04:45 Labs: Last Result Calcium 8.9 mg/dL (8.6-10.3) 08/24/17 04:45 Troponin I 2.82 ng/mL (< 0.04) H* 08/21/17 11:19 Stool Occult Blood Positive (Negative) A 08/21/17 10:25 Entire Visit Hgb 8.3 g/dL (11.5-15.4) L 08/24/17 04:45 Hct 27.2 % (35.3-44.9) L 08/24/17 04:45 PT 12.9 Seconds (9.4-12.1) H 08/20/17 17:21 - ABG ABG results: PT/INR, D-dimer PT 12.9 Seconds (9.4-12.1) H 08/20/17 17:21 - Attending Attestation I examined this patient and my medical decision-making was reviewed with the BANJO REPAIRER. I agree with the documented findings, disposition and treatment plan as described except to the extent set forth below. Pt with anemia, will [facility] for EGD/colon in am
[2017-08-24] MEDS ORDERED: SODIUM CHLORIDE/NAHCO3/KCL/PEG 4,000 ML SOLN.RECON PO ONE (13:46)
[2017-08-25] MEDS: Pantoprazole 40 MG VIAL IVP SCH ×2 (06:03→17:14)
--- NOTE | 2017-08-25 08:45 | Internal Med Progress Note ---
Date of Encounter: 08/25/17 Time of Encounter: 08:43 - Assessment and plan (1) Acute blood loss anemia Current Visit: Yes Status: Acute Assessment and plan: Acute blood lows anemia likely secondary to GI bleed, unknown source The patient was initially reluctant to being evaluated by the GI service, now agreeable to possibly have an EGD versus colonoscopy Hb has dropped down 7-8 from a baseline of 12 back in May 2017 Positive hemoccult Not actively bleeding Stopped subcutaneous heparin, start Protonix IV NPO for possible EGD and colon anoscopy GI consult Consider stopping aspirin and Plavix if active bleeding is evidence Monitor CBC, consider transfusion (2) Acute on chronic respiratory failure Current Visit: Yes Status: Acute Assessment and plan: Acute on chronic hypoxic respiratory failure secondary to acute COPD exacerbation due to possible healthcare associated pneumonia present upon admission and systolic CHF exacerbation Continue Zosyn day 7 Patient is on home oxygen due to underlying COPD. Continue Lasix Culture grew normal dwight of the upper respiratory tract Ejection fraction of 45-50% tracheostomy collar. Qualifiers: Respiratory failure complication: hypoxia and hypercapnia Qualified Code(s) : J96.21 - Acute and chronic respiratory failure with hypoxia; J96.22 - Acute and chronic respiratory failure with hypercapnia; J96.22 - Acute and chronic respiratory failure with hypercapnia; J96.22 - Acute and chronic respiratory failure with hypercapnia (3) Elevated troponin Current Visit: Yes Status: Acute Assessment and plan: Possible non-ST elevation [place]. Patient's Troponin went up to 4.44, from 0.8; She is not on IV Heparin drip anymore, continued on ASA, Plavix, statin, beta bess; Cardiology consulted occult blood positive stool. patient recently had non-ST elevation [place], status post drug-eluting stent in the proximal LAD (4) CAD (coronary artery disease) Current Visit: Yes Status: Chronic Assessment and plan: Continue aspirin, Plavix, statin, beta bess, Imdur. Qualifiers: Coronary Disease-Associated Artery/Lesion type: bypass graft [place] vs. transplanted heart: [place] heart Associated angina: without angina Qualified Code(s): I25.810 - Atherosclerosis of coronary artery bypass graft(s) without angina pectoris (5) Chronic kidney disease Current Visit: Yes Status: Chronic Assessment and plan: Acute on chronic renal failure, history of chronic kidney disease of stage III Improved. Outpatient nephrology follow-up. Qualifiers: Chronic kidney disease stage: stage 3 (moderate) Qualified Code(s): N18.3 - Chronic kidney disease, stage 3 (moderate) (6) Diabetes mellitus Current Visit: Yes Status: Chronic Assessment and plan: Continue Accu-Chek blood glucose monitoring with sliding scale insulin as needed. Diabetic diet. Qualifiers: Diabetes mellitus type: type 2 Diabetes mellitus complication status: with unspecified complications Diabetes mellitus intermodal customer service insulin use: with intermodal customer service use Qualified Code(s): E11.8 - Type 2 diabetes mellitus with unspecified complications; Z79.4 - [facility] (current) use of insulin; Z79.4 - [facility] ( current) use of insulin; Z79.4 - [facility] (current) use of insulin; Z79.4 - [facility] (current) use of insulin (7) Diastolic dysfunction Current Visit: Yes Status: Chronic (8) Tracheostomy in place Current Visit: Yes Status: Chronic (9) Pneumonia Current Visit: Yes Status: Suspected Assessment and plan: CT chest reviewed-showed moderate bilateral pleural effusions with significant opacities and interstitial edema, underlying by basilar pneumonia cannot be excluded. Discontinued vancomycin and continue IV Zosyn Qualifiers: Pneumonia type: due to unspecified organism Laterality: unspecified laterality Lung location: unspecified part of lung Qualified Code(s): J18.9 - Pneumonia, unspecified organism - Subjective Interval history: Stable, no new complaints less short of breath, coughing, secretions have improved from tracheostomy. Denies any abdominal pain, no active bleeding. Accepted to be seen by the GI service. Denies any fevers, no chest pain - Constitutional Vitals: Temp Pulse Resp BP Pulse Ox 98.1 F 62 18 143/72 100 08/25/17 07:55 08/25/17 07:55 08/25/17 07:55 08/25/17 07:55 08/25/17 07:55 General appearance: Present: A&O X 3, no acute distress, obese, answers questions appropriately Exam: - Head Head exam: Present: atraumatic, normocephalic Additional comments: Tracheostomy in place - Eye Eye exam: Present: PERRL, conjuntiva pink, sclera anicteric Pupils: Present: PERRL - Neck Neck exam general surgery: Present: supple, trachea midline. Absent: lymphadenopathy - Respiratory Respiratory exam: Present: decreased breath sounds, CTAB. Absent: accessory muscle use, rales, rhonchi, wheezes - Cardiovascular Cardiovascular exam: Present: RRR, +S1, +S2. Absent: diastolic murmur, gallop, rubs, systolic murmur - GI/Abdominal GI/Abdominal exam: Present: distended, normal bowel sounds, soft, no peritoneal signs. Absent: tenderness - Extremities Exam Extremities exam: Present: warm, radial pulses palpable and symmetrical. Absent : calf tenderness, cyanotic, pedal edema - Neurological Exam Neurological exam: Present: CN II-XII intact, oriented X3, no focal deficits. Absent: pronater drift, facial droop, speech deficit - Skin Skin exam: Present: dry, intact Internal Medicine: Result - Labs CBC & Chem 7: 08/24/17 04:45 08/24/17 04:45 - ABG Interpretation ABG results: PT/INR, D-dimer PT 12.9 Seconds (9.4-12.1) H 08/20/17 17:21 - VTE Documentation of Mechanical Device: Intermittent pneumatic compression device Consult Discharge Plan - Plan Referrals: Tera Mcintosh MD [Primary Care Provider] - 08/29/17 11:00 am (Please follow up as schedule..)
--- NOTE | 2017-08-25 08:50 | Anesthesia Evaluation PreOp ---
Date of Encounter: 08/25/17 Time of Encounter: 08:50 - Past History Planned Operation: EGD/Colon Cardiac History: IA, CHF (Diastolic dysfx maintained on Lasix), HTN (maintained on Metoprolol, Imdur), Hyperlipidemia (maintained on Atorvastatin), Cardiac Surgery (CABG x 3v 1997 @ [facility]), Cardiac Stent (NEW ANASTASIYA for NSTEMI placed 08/09/2017 with new admission 08/19/2017 with repeat NSTEMI and repeat elevated Troponins that have since trended back down to WNL. Maintained on ASA, Plavix last doses 08/24/2017 @ 0925), Other (Acute blood loss anemia) Pulmonary History: COPD, Other (Acute on Chronic respiratory failure, COPD exacerbation/recent pneumonia. Hx of Trach - currently on 5L/min per Trach mask. 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 and Trach was placed as a preventative measure prior to Gallbladder surgery.) Other Medical History: Diabetes Type II (maintained on Insulin pump) Anesthesia History: No Prior Anesthetic Complications, Past Anesthesia ([place], Trach, CABG x 3v) Alcohol Use: rarely Drug use: none Medications and Allergies Atorvastatin [Lipitor] 40 mg PO HS 03/22/16 [History] Clopidogrel [Plavix] 75 mg PO DAILY 03/22/16 [History] Isosorbide MONOnitrate (24 HR) [Imdur] 60 mg PO BID 03/22/16 [History] Gabapentin [Neurontin] 100 mg PO TID 08/06/17 [History] HydrOXYzine 10 mg PO HS 08/06/17 [History] Metoprolol Tartrate [Lopressor] 50 mg PO BID 08/06/17 [History] Subcutaneous Insulin Pump [T:Slim] 1 each MC DAILY 08/06/17 [History] rOPINIRole [Requip] 3 mg PO HS 08/06/17 [History] Aspirin Enteric Coated [Aspirin EC] 81 mg PO DAILY #30 tablet. 08/12/17 [Rx] Furosemide [Lasix] 20 mg PO DAILY PRN #30 tablet 08/12/17 [Rx] Lisinopril [Zestril] 20 mg PO DAILY 08/19/17 [History] 3 Allergy/AdvReac Type Severity Reaction Status Date / Time cephalexin [From Keflex] Allergy Rash Verified 08/09/16 12:19 latex Allergy Rash Verified 08/09/16 12:19 morphine Allergy Confusion Verified 08/09/16 12:19 ibuprofen AdvReac Confusion Verified 08/09/16 12:19 metal Allergy Rash Uncoded 03/22/16 15:13 - Meds/Allergy Pre-op Review Medications Reviewed: Yes Allergies Reviewed: Yes Beta Blockers on Current Med List: Yes Anesthesia Results - Labs 08/24/17 04:45 08/24/17 04:45 Laboratory Results WBC 6.9 K/mcL (4.3-11.1) 08/24/17 04:45 RBC 2.82 M/mcL (3.82-4.97) L 08/24/17 04:45 Hgb 8.3 g/dL (11.5-15.4) L 08/24/17 04:45 Hct 27.2 % (35.3-44.9) L 08/24/17 04:45 MCV 96.5 fL (83.0-100.0) 08/24/17 04:45 MCH 29.4 pg (28.0-33.3) 08/24/17 04:45 MCHC 30.5 g/dL (31.6-35.5) L 08/24/17 04:45 RDW 13.5 % (11.5-14.5) 08/24/17 04:45 Plt Count 202 K/mcL (140-400) 08/24/17 04:45 MPV 11.3 fL (9.4-12.4) 08/24/17 04:45 Immature Gran % 0.3 % (0-4) 08/23/17 04:00 Seg Neutrophils % 56.6 % 08/23/17 04:00 Lymphocytes % 24.4 % 08/23/17 04:00 Monocytes % 8.4 % 08/23/17 04:00 Eosinophils % 9.8 % 08/23/17 04:00 Basophils % 0.5 % 08/23/17 04:00 Neutrophils # 3.3 K/mcL (1.6-8.9) 08/23/17 04:00 Lymphocytes # 1.4 K/mcL (0.6-4.6) 08/23/17 04:00 Monocytes # 0.5 K/mcL (0.0-1.3) 08/23/17 04:00 Eosinophils # 0.6 K/mcL (0.0-0.6) 08/23/17 04:00 Basophils # 0.0 K/mcL (0.0-0.2) 08/23/17 04:00 PT 12.9 Seconds (9.4-12.1) H 08/20/17 17:21 INR 1.2 08/20/17 17:21 APTT 68.3 Seconds (26.0-36.0) H 08/21/17 08:17 Sodium 142 mEq/L (136-145) 08/24/17 04:45 Potassium 4.2 mEq/L (3.5-5.1) 08/24/17 04:45 Chloride 106 mEq/L (98-107) 08/24/17 04:45 Carbon Dioxide 31 mEq/L (23-29) H 08/24/17 04:45 BUN 15 mg/dL (8-23) 08/24/17 04:45 Creatinine 0.87 mg/dL (0.60-1.20) 08/24/17 04:45 Est GFR ( Amer) > 60 (> 60) 08/24/17 04:45 Est GFR (Non-Af Amer) > 60 (> 60) 08/24/17 04:45 BUN/Creatinine Ratio 17 (6-26) 08/24/17 04:45 Glucose 202 mg/dL (70-105) H 08/24/17 04:45 POC Glucose 267 (58-89) H 08/24/17 16:23 Calculated Osmolality 301 (280-300) H 08/24/17 04:45 Calcium 8.9 mg/dL (8.6-10.3) 08/24/17 04:45 Phosphorus 3.7 mg/dL (2.7-4.5) 08/23/17 04:00 Magnesium 2.0 mg/dL (1.6-2.6) 08/23/17 04:00 Troponin I 2.82 ng/mL (< 0.04) H* 08/21/17 11:19 Urine Creatinine 146 mg/dL 08/20/17 11:45 Protein/Creatinin Ratio 0.23 mg/mg (0.00-0.20) H 08/20/17 11:45 Ur Uric Acid 43 mg/dL 08/20/17 11:45 Urine Total Protein 34 mg/dL 08/20/17 11:45 Stool Occult Blood Positive (Negative) A 08/21/17 10:25 Vancomycin Trough 13.5 mcg/mL (10-20) 08/21/17 12:39 Chlamy pneumoniae PCR Not Detected (Not Detect) 08/19/17 10:42 Adenovirus (PCR) Not Detected (Not Detect) 08/19/17 10:42 B. pertussis DNA (PCR) Not Detected (Not Detect) 08/19/17 10:42 B.parapertussis DNA PCR Not Detected (Not Detect) 08/19/17 10:42 Coronavirus OC43 (PCR) Not Detected (Not Detect) 08/19/17 10:42 Coronavirus HKU1 (PCR) Not Detected (Not Detect) 08/19/17 10:42 Coronavirus 229E (PCR) Not Detected (Not Detect) 08/19/17 10:42 Coronavirus NL63 (PCR) Not Detected (Not Detect) 08/19/17 10:42 Human Metapneumovir PCR Not Detected (Not Detect) 08/19/17 10:42 Influenza A (H1) PCR Not Detected (Not Detect) 08/19/17 10:42 Influ A (H1N1/09) PCR Not Detected (Not Detect) 08/19/17 10:42 Influenza A (H3) PCR Not Detected (Not Detect) 08/19/17 10:42 Influenza A Untype (PCR) Not Detected (Not Detect) 08/19/17 10:42 Influenza Type B (PCR) Not Detected (Not Detect) 08/19/17 10:42 M.pneumoniae DNA (PCR) Not Detected (Not Detect) 08/19/17 10:42 Parainfluenza 1 (PCR) Not Detected (Not Detect) 08/19/17 10:42 Parainfluenza 2 (PCR) Not Detected (Not Detect) 08/19/17 10:42 Parainfluenza 3 (PCR) Not Detected (Not Detect) 08/19/17 10:42 Parainfluenza 4 (PCR) Not Detected (Not Detect) 08/19/17 10:42 RSV (PCR) Not Detected (Not Detect) 08/19/17 10:42 Entero/Rhino (PCR) Not Detected (Not Detect) 08/19/17 10:[address] 08/19/17 09:00 IMPRESSION: 1. No significant change in appearance of moderate sized bilateral pleural effusions and bilateral lower lobe airspace consolidation, felt to represent passive atelectasis. However, underlying pneumonia or aspiration are also diagnostic considerations. 2. Slight interval improvement in appearance of bilateral upper lobe ground-glass airspace opacity, likely representing resolving pulmonary edema and/or atelectasis. D/ / 08/19/2017 18:18:51 Edwin Beauchamp MD / [facility] Interpreting Provider: Edwin Beauchamp MD Echocardiogram Limited Views 08/21/17 11:47 Impressions: LVEF 45-50%. Mild segmental left ventricular systolic dysfunction. Atypical septal motion consistent with post-operative status. Left Ventricular Wall Motion: Rest Echo Findings The basal inferior and basal inferior septal mar were akinetic. All other wall segments showed normal motion. Findings: Study Quality * Technically adequate exam. ECG Findings * Normal sinus rhythm. Left Ventricle * LVEF 45-50%. * Normal LV chamber size. * Mild segmental left ventricular systolic dysfunction. * Atypical septal motion consistent with post-operative status. Right Ventricle * Normal right ventricular structure and function. - Imaging EKG: image reviewed Anesthesia Exam O2 Sat Weight 89.2 kg Weight 87.99 kg O2 Sat by Pulse Oximetry 100 O2 Sat by Pulse Oximetry 97 O2 Sat by Pulse Oximetry 100 O2 Sat by Pulse Oximetry 99 O2 Sat by Pulse Oximetry 100 O2 Sat by Pulse Oximetry 100 O2 Sat by Pulse Oximetry 99 O2 Sat by Pulse Oximetry 99 Vital Signs Temp Pulse Resp BP Pulse Ox 98.8 F 104 30 153/54 100 08/19/17 03:00 08/19/17 03:00 08/19/17 03:00 08/19/17 03:00 08/19/17 03:00 Height: 5'1" Weight: 196# BMI = 36 NPO (# of Hours): MNOc - HEENT Pupil (Motor): Pupils equal, EOMI Mallampati: Trach (uncuffed TRACH) Teeth: Normal Oral Opening: Greater than 3 - DIRECTOR OF GOVERNMENT SALES LOC: Oriented DIRECTOR OF GOVERNMENT SALES Motor: Normal RUE, Normal LUE, Normal RLE, Normal LLE, Normal Face DIRECTOR OF GOVERNMENT SALES Sensory: Normal: RUE, LUE, RLE, LLE, Face - Cardiac Rhythm: Regular Murmur: None - Pulmonary Breath Sounds: bilateral Clear Respiratory Effort: Symmetrical Anesthesia Assess/Plan ASA Score: 4 (COPD, Trach, CAD s/p NEW ANASTASIYA, DM) Modified [place] Scale for Level of Consciousness: Cooperative, oriented, and tranquil Anesthetic Plan: MAC Monitoring Plan: Standard Monitors Recovery Plan: Other Anes Supervising Prov Stmt: PT seen/evaluated, R&B Discussed, questions answered and consent obtained. Femi Melton MD
[2017-08-25] MEDS ORDERED: *HR* Etomidate 40 MG/20 ML VIAL IVP ONE (09:08)
[2017-08-25] MEDS ORDERED: *HR* Propofol 200 MG/20 ML VIAL IVP ONE (09:10)
[2017-08-25] MEDS: Isosorbide MONOnitrate (24 HR) 60 MG TAB.ER.24H PO SCH (10:41)
[2017-08-25] MEDS: Aspirin Enteric Coated 81 MG Tablet PO SCH (10:43)
[2017-08-25] MEDS: Lisinopril 20 MG TABLET PO SCH (10:43)
[2017-08-25] MEDS: MethylPREDNISolone 40 MG/ML VIAL IVP SCH ×2 (10:43→21:07)
[2017-08-25] MEDS: Gabapentin 100 MG CAPSULE PO SCH ×3 (10:43→21:06)
[2017-08-25] MEDS: Furosemide 20 MG TABLET PO SCH (10:44)
[2017-08-25] MEDS: Levalbuterol Neb 0.63 MG/3 ML IH SCH ×2 (11:05→22:28)
[2017-08-25] MEDS: Subcutaneous Insulin Pump [T:Slim] 1 EACH MC SCH (11:12)
[2017-08-25] MEDS ORDERED: Insulin LISPRO 300 UNITS/3 ML VIAL SQ ONE (21:00)
[2017-08-26 04:14] LABS: Hematocrit 26.7 % (35.3-44.9); Hemoglobin 8.2 g/dL (11.5-15.4); Mean Corpuscular HGB Conc 30.7 g/dL (31.6-35.5); Mean Corpuscular Hemoglobin 29.6 pg (28.0-33.3); Mean Corpuscular Volume 96.4 fL (83.0-100.0); Mean Platelet Volume 11.1 fL (9.4-12.4); Platelet Count 204 K/mcL (140-400); Red Blood Count 2.77 M/mcL (3.82-4.97); Red Cell Distribution Width 14.6 % (11.5-14.5)
[2017-08-26 05:10] LABS: BUN/Creatinine Ratio 18 (6-26); Blood Urea Nitrogen 18 mg/dL (8-23); Calcium 8.7 mg/dL (8.6-10.3); Carbon Dioxide 29 mEq/L (23-29); Chloride 108 mEq/L (98-107); Glucose 182 mg/dL (70-105); Osmolality,Calculated 305 (280-300); Potassium 4.3 mEq/L (3.5-5.1); Sodium 144 mEq/L (136-145); eGFR For African Americans > 60 (> 60); eGFR For Non-African Americans 54 (> 60)
[2017-08-26] MEDS: Pantoprazole 40 MG VIAL IVP SCH (06:17)
[2017-08-26] MEDS ORDERED: Insulin LISPRO 300 UNITS/3 ML VIAL SQ ONE ×2 (08:17→12:40)
[2017-08-26] MEDS: Isosorbide MONOnitrate (24 HR) 60 MG TAB.ER.24H PO SCH (08:47)
[2017-08-26] MEDS: Lisinopril 20 MG TABLET PO SCH ×2 (08:49→13:38)
[2017-08-26] MEDS: MethylPREDNISolone 40 MG/ML VIAL IVP SCH (08:50)
[2017-08-26] MEDS: Furosemide 20 MG TABLET PO SCH (08:50)
[2017-08-26] MEDS: Aspirin Enteric Coated 81 MG Tablet PO SCH (08:50)
[2017-08-26] MEDS: Gabapentin 100 MG CAPSULE PO SCH ×3 (08:50→20:44)
[2017-08-26] MEDS: Subcutaneous Insulin Pump [T:Slim] 1 EACH MC SCH (08:52)
--- NOTE | 2017-08-26 09:37 | Internal Med Progress Note ---
Date of Encounter: 08/26/17 Time of Encounter: 09:35 - Assessment and plan (1) Acute blood loss anemia Current Visit: Yes Status: Acute Assessment and plan: Acute blood lows anemia likely secondary to GI bleed, unknown source The patient was initially reluctant to being evaluated by the GI service, agreed to have an EGD and colonoscopy EGD showed only chronic gastritis, no active source of bleeding. Hb has dropped down 7-8 from a baseline of 12 back in May 2017 Positive hemoccult Stop Protonix, start omeprazole GI consulted Consider stopping aspirin and Plavix if active bleeding is evidence Monitor CBC, consider transfusion (2) Acute on chronic respiratory failure Current Visit: Yes Status: Acute Assessment and plan: Acute on chronic hypoxic respiratory failure secondary to acute COPD exacerbation due to possible healthcare associated pneumonia present upon admission and systolic CHF exacerbation Stop Solu-Medrol and start prednisone Completed 7 days of Zosyn Patient is on home oxygen due to underlying COPD. Continue Lasix Culture grew normal dwight of the upper respiratory tract Ejection fraction of 45-50% tracheostomy collar. Qualifiers: Respiratory failure complication: hypoxia and hypercapnia Qualified Code(s) : J96.21 - Acute and chronic respiratory failure with hypoxia; J96.22 - Acute and chronic respiratory failure with hypercapnia; J96.22 - Acute and chronic respiratory failure with hypercapnia; J96.22 - Acute and chronic respiratory failure with hypercapnia (3) Elevated troponin Current Visit: Yes Status: Acute Assessment and plan: Possible non-ST elevation [place]. Patient's Troponin went up to 4.44, from 0.8; She is not on IV Heparin drip anymore, continued on ASA, Plavix, statin, beta bess; Cardiology consulted occult blood positive stool. patient recently had non-ST elevation [place], status post drug-eluting stent in the proximal LAD (4) CAD (coronary artery disease) Current Visit: Yes Status: Chronic Assessment and plan: Continue aspirin, Plavix, statin, beta bess, Imdur. Qualifiers: Coronary Disease-Associated Artery/Lesion type: bypass graft [place] vs. transplanted heart: [place] heart Associated angina: without angina Qualified Code(s): I25.810 - Atherosclerosis of coronary artery bypass graft(s) without angina pectoris (5) Chronic kidney disease Current Visit: Yes Status: Chronic Assessment and plan: Acute on chronic renal failure, history of chronic kidney disease of stage III Improved. Outpatient nephrology follow-up. Qualifiers: Chronic kidney disease stage: stage 3 (moderate) Qualified Code(s): N18.3 - Chronic kidney disease, stage 3 (moderate) (6) Diabetes mellitus Current Visit: Yes Status: Chronic Assessment and plan: Continue Accu-Chek blood glucose monitoring with sliding scale insulin as needed. Diabetic diet. 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: with residential use Qualified Code(s): E11.8 - Type 2 diabetes mellitus with unspecified complications; Z79.4 - correction (current) use of insulin; Z79.4 - correction ( current) use of insulin; Z79.4 - termite control service representative (current) use of insulin; Z79.4 - termite control service representative (current) use of insulin (7) Diastolic dysfunction Current Visit: Yes Status: Chronic (8) Tracheostomy in place Current Visit: Yes Status: Chronic (9) Pneumonia Current Visit: Yes Status: Suspected Assessment and plan: CT chest reviewed-showed moderate bilateral pleural effusions with significant opacities and interstitial edema, underlying by basilar pneumonia cannot be excluded. Discontinued vancomycin and completed doses of IV Zosyn Qualifiers: Pneumonia type: due to unspecified organism Laterality: unspecified laterality Lung location: unspecified part of lung Qualified Code(s): J18.9 - Pneumonia, unspecified organism - Subjective Interval history: No new complaints, less short of breath, coughing less, secretions have improved from tracheostomy. Denies any abdominal pain, no active bleeding. Accepted to be seen by the GI service. Denies any fevers, no chest pain - Constitutional Vitals: Temp Pulse Resp BP Pulse Ox 97.9 F 61 18 164/56 98 08/26/17 06:42 08/26/17 06:42 08/26/17 06:42 08/26/17 06:42 08/26/17 06:42 General appearance: Present: A&O X 3, no acute distress, obese, answers questions appropriately Exam: - Head Head exam: Present: atraumatic, normocephalic Additional comments: Tracheostomy in place - Eye Eye exam: Present: PERRL, conjuntiva pink, sclera anicteric Pupils: Present: PERRL - Neck Neck exam general surgery: Present: supple, trachea midline. Absent: lymphadenopathy - Respiratory Respiratory exam: Present: decreased breath sounds, CTAB. Absent: accessory muscle use, rales, rhonchi, wheezes - Cardiovascular Cardiovascular exam: Present: RRR, +S1, +S2. Absent: diastolic murmur, gallop, rubs, systolic murmur - GI/Abdominal GI/Abdominal exam: Present: distended, normal bowel sounds, soft, no peritoneal signs. Absent: tenderness - Extremities Exam Extremities exam: Present: warm, radial pulses palpable and symmetrical. Absent : calf tenderness, cyanotic, pedal edema - Neurological Exam Neurological exam: Present: CN II-XII intact, oriented X3, no focal deficits. Absent: pronater drift, facial droop, speech deficit - Skin Skin exam: Present: dry, intact Internal Medicine: Result - Labs CBC & Chem 7: 08/26/17 04:00 08/26/17 04:00 Labs: Short CBC 08/26/17 Range/Units 04:00 WBC 9.3 (4.3-11.1) K/mcL Hgb 8.2 L (11.5-15.4) g/dL Hct 26.7 L (35.3-44.9) % Plt Count 204 (140-400) K/mcL BMP 08/26/17 04:00 Sodium 144 Potassium 4.3 Chloride 108 H Carbon Dioxide 29 BUN 18 Creatinine 1.01 Glucose 182 H Calcium 8.7 - ABG Interpretation ABG results: PT/INR, D-dimer PT 12.9 Seconds (9.4-12.1) H 08/20/17 17:21 - VTE Documentation of Mechanical Device: Intermittent pneumatic compression device Consult Discharge Plan - Plan Referrals: Tera Mcintosh MD [Primary Care Provider] - 08/29/17 11:00 am (Please follow up as schedule..)
[2017-08-26] MEDS: Levalbuterol Neb 0.63 MG/3 ML IH SCH ×2 (10:39→19:48)
[2017-08-26] MEDS ORDERED: Lisinopril 20 MG TABLET PO SCH (12:40)
[2017-08-26] MEDS: amLODIPine 5 MG TABLET PO SCH (17:49)
--- NOTE | 2017-08-27 08:48 | Internal Med Progress Note ---
Date of Encounter: 08/27/17 Time of Encounter: 08:46 - Assessment and plan (1) Acute blood loss anemia Current Visit: Yes Status: Acute Assessment and plan: Acute blood lows anemia likely secondary to GI bleed, unknown source The patient was initially reluctant to being evaluated by the GI service, agreed to have an EGD and colonoscopy EGD showed only chronic gastritis, no active source of bleeding. Hb has dropped down 7-8 from a baseline of 12 back in May 2017 Positive hemoccult Stopped Protonix, continue omeprazole GI consulted Consider stopping aspirin and Plavix if active bleeding is evidence Monitor CBC, consider transfusion (2) Acute on chronic respiratory failure Current Visit: Yes Status: Acute Assessment and plan: Acute on chronic hypoxic respiratory failure secondary to acute COPD exacerbation due to possible healthcare associated pneumonia present upon admission and systolic CHF exacerbation Stopped Solu-Medrol, continue prednisone Completed 7 days of Zosyn Patient is on home oxygen due to underlying COPD. Continue Lasix Culture grew normal dwight of the upper respiratory tract Ejection fraction of 45-50% tracheostomy collar. Qualifiers: Respiratory failure complication: hypoxia and hypercapnia Qualified Code(s) : J96.21 - Acute and chronic respiratory failure with hypoxia; J96.22 - Acute and chronic respiratory failure with hypercapnia; J96.22 - Acute and chronic respiratory failure with hypercapnia; J96.22 - Acute and chronic respiratory failure with hypercapnia (3) Elevated troponin Current Visit: Yes Status: Acute Assessment and plan: Possible non-ST elevation [place]. Patient's Troponin went up to 4.44, from 0.8; She is not on IV Heparin drip anymore, continued on ASA, Plavix, statin, beta bess; Cardiology consulted occult blood positive stool. patient recently had non-ST elevation [place], status post drug-eluting stent in the proximal LAD (4) CAD (coronary artery disease) Current Visit: Yes Status: Chronic Assessment and plan: Continue aspirin, Plavix, statin, beta bess, Imdur. Qualifiers: Coronary Disease-Associated Artery/Lesion type: bypass graft [place] vs. transplanted heart: [place] heart Associated angina: without angina Qualified Code(s): I25.810 - Atherosclerosis of coronary artery bypass graft(s) without angina pectoris (5) Chronic kidney disease Current Visit: Yes Status: Chronic Assessment and plan: Acute on chronic renal failure, history of chronic kidney disease of stage III Improved. Outpatient nephrology follow-up. Qualifiers: Chronic kidney disease stage: stage 3 (moderate) Qualified Code(s): N18.3 - Chronic kidney disease, stage 3 (moderate) (6) Diabetes mellitus Current Visit: Yes Status: Chronic Assessment and plan: Continue Accu-Chek blood glucose monitoring with sliding scale insulin as needed. Diabetic diet. 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 insulin use: with correction use Qualified Code(s): E11.8 - Type 2 diabetes mellitus with unspecified complications; Z79.4 - alf (current) use of insulin; Z79.4 - long term care pharmacist ( current) use of insulin; Z79.4 - long term care pharmacist (current) use of insulin; Z79.4 - alf (current) use of insulin (7) Diastolic dysfunction Current Visit: Yes Status: Chronic (8) Tracheostomy in place Current Visit: Yes Status: Chronic (9) Pneumonia Current Visit: Yes Status: Suspected Assessment and plan: CT chest reviewed-showed moderate bilateral pleural effusions with significant opacities and interstitial edema, underlying by basilar pneumonia cannot be excluded. Discontinued vancomycin and completed doses of IV Zosyn Qualifiers: Pneumonia type: due to unspecified organism Laterality: unspecified laterality Lung location: unspecified part of lung Qualified Code(s): J18.9 - Pneumonia, unspecified organism - Subjective Interval history: Feeling less short of breath, coughing less, secretions from tracheostomy have improved. Denies any abdominal pain, no active bleeding. Accepted to be seen by the GI service. Denies any fevers, no chest pain - Constitutional Vitals: Temp Pulse Resp BP Pulse Ox 97.8 F 58 17 153/62 98 08/27/17 07:05 08/27/17 07:05 08/27/17 07:05 08/27/17 07:05 08/27/17 07:05 General appearance: Present: A&O X 3, no acute distress, obese, answers questions appropriately Exam: - Head Head exam: Present: atraumatic, normocephalic Additional comments: Tracheostomy in place - Eye Eye exam: Present: PERRL, conjuntiva pink, sclera anicteric Pupils: Present: PERRL - Neck Neck exam general surgery: Present: supple, trachea midline. Absent: lymphadenopathy - Respiratory Respiratory exam: Present: decreased breath sounds, CTAB. Absent: accessory muscle use, rales, rhonchi, wheezes - Cardiovascular Cardiovascular exam: Present: RRR, +S1, +S2. Absent: diastolic murmur, gallop, rubs, systolic murmur - GI/Abdominal GI/Abdominal exam: Present: distended, normal bowel sounds, soft, no peritoneal signs. Absent: tenderness - Extremities Exam Extremities exam: Present: warm, radial pulses palpable and symmetrical. Absent : calf tenderness, cyanotic, pedal edema - Neurological Exam Neurological exam: Present: CN II-XII intact, oriented X3, no focal deficits. Absent: pronater drift, facial droop, speech deficit - Skin Skin exam: Present: dry, intact Internal Medicine: Result - Labs CBC & Chem 7: 08/26/17 04:00 08/26/17 04:00 - ABG Interpretation ABG results: PT/INR, D-dimer PT 12.9 Seconds (9.4-12.1) H 08/20/17 17:21 - VTE Documentation of Mechanical Device: Intermittent pneumatic compression device Consult Discharge Plan - Plan Referrals: Tera Mcintosh MD [Primary Care Provider] - 08/29/17 11:00 am (Please follow up as schedule..)
[2017-08-27] MEDS: Furosemide 20 MG TABLET PO SCH (10:47)
[2017-08-27] MEDS: Isosorbide MONOnitrate (24 HR) 60 MG TAB.ER.24H PO SCH (10:47)
[2017-08-27] MEDS: Lisinopril 20 MG TABLET PO SCH (10:47)
[2017-08-27] MEDS: predniSONE 20 MG TABLET PO SCH (10:48)
[2017-08-27] MEDS: amLODIPine 5 MG TABLET PO SCH (10:48)
[2017-08-27] MEDS: Gabapentin 100 MG CAPSULE PO SCH ×3 (10:48→21:33)
[2017-08-27] MEDS: Subcutaneous Insulin Pump [T:Slim] 1 EACH MC SCH (10:48)
[2017-08-27] MEDS: Aspirin Enteric Coated 81 MG Tablet PO SCH (10:48)
[2017-08-27] MEDS: Levalbuterol Neb 0.63 MG/3 ML IH SCH ×2 (10:56→21:37)
--- NOTE | 2017-08-27 10:59 | Electrocardiograph Report ---
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
[2017-08-28 07:02] VITALS: BP 155/64
--- NOTE | 2017-08-28 08:25 | Discharge Summary ---
Date of Encounter: 08/28/17 Time of Encounter: 08:17 - Discharge Diagnosis (1) Acute on chronic respiratory failure Priority: Primary Status: Acute Comments: Acute on chronic hypoxic respiratory failure secondary to acute COPD exacerbation due to possible healthcare associated pneumonia present upon admission and systolic CHF exacerbation Qualifiers: Respiratory failure complication: hypoxia and hypercapnia Qualified Code(s) : J96.21 - Acute and chronic respiratory failure with hypoxia; J96.22 - Acute and chronic respiratory failure with hypercapnia; J96.22 - Acute and chronic respiratory failure with hypercapnia; J96.22 - Acute and chronic respiratory failure with hypercapnia (2) Acute blood loss anemia Priority: Primary Status: Acute Comments: Acute blood lows anemia likely secondary to GI bleed, no source found (3) Elevated troponin Priority: Secondary Status: Acute (4) CAD (coronary artery disease) Priority: Secondary Status: Chronic Qualifiers: Coronary Disease-Associated Artery/Lesion type: bypass graft [place] vs. transplanted heart: [place] heart Associated angina: without angina Qualified Code(s): I25.810 - Atherosclerosis of coronary artery bypass graft(s) without angina pectoris (5) Chronic kidney disease Priority: Secondary Status: Chronic Qualifiers: Chronic kidney disease stage: stage 3 (moderate) Qualified Code(s): N18.3 - Chronic kidney disease, stage 3 (moderate) (6) Diabetes mellitus Priority: Secondary Status: Chronic Qualifiers: Diabetes mellitus type: type 2 Diabetes mellitus complication status: with unspecified complications Diabetes mellitus usp insulin use: with usp use Qualified Code(s): E11.8 - Type 2 diabetes mellitus with unspecified complications; Z79.4 - prison (current) use of insulin; Z79.4 - prison ( current) use of insulin; 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; Z79.4 - prison (current) use of insulin (7) Diastolic dysfunction Priority: Secondary Status: Chronic (8) Tracheostomy in place Priority: Secondary Status: Chronic (9) Pneumonia Priority: Primary Status: Suspected Qualifiers: Pneumonia type: due to unspecified organism Laterality: unspecified laterality Lung location: unspecified part of lung Qualified Code(s): J18.9 - Pneumonia, unspecified organism - Discharge Medications Prescriptions: predniSONE [PredniSONE] 40 mg PO DAILY 20 Days tablet Home Medications: Atorvastatin [Lipitor] 40 mg PO HS 03/22/16 [History] Clopidogrel [Plavix] 75 mg PO DAILY 03/22/16 [History] Isosorbide MONOnitrate (24 HR) [Imdur] 60 mg PO BID 03/22/16 [History] Gabapentin [Neurontin] 100 mg PO TID 08/06/17 [History] HydrOXYzine 10 mg PO HS 08/06/17 [History] Metoprolol Tartrate [Lopressor] 50 mg PO BID 08/06/17 [History] Subcutaneous Insulin Pump [T:Slim] 1 each MC DAILY 08/06/17 [History] rOPINIRole [Requip] 3 mg PO HS 08/06/17 [History] Aspirin Enteric Coated [Aspirin EC] 81 mg PO DAILY #30 tablet. 08/12/17 [Rx] Furosemide [Lasix] 20 mg PO DAILY PRN #30 tablet 08/12/17 [Rx] Levalbuterol Neb [Xopenex Neb] 0.63 mg IH [id number] vial.neb 08/28/17 [Rx] Lisinopril [Zestril] 40 mg PO DAILY #0 08/28/17 [Rx] Omeprazole [PriLOSEC] 40 mg PO DAILY@0630 capsule. 08/28/17 [Rx] amLODIPine [Norvasc] 10 mg PO DAILY #0 tablet 08/28/17 [Rx] predniSONE [PredniSONE] 40 mg PO DAILY 20 Days tablet 08/28/17 [Rx] Allergies/Adverse Reactions: 3 Allergy/AdvReac Type Severity Reaction Status Date / Time cephalexin [From Keflex] Allergy Rash Verified 08/09/16 12:19 latex Allergy Rash Verified 08/09/16 12:19 morphine Allergy Confusion Verified 08/09/16 12:19 Hydralazine AdvReac Mild Flushing Verified 08/26/17 12:55 ibuprofen AdvReac Confusion Verified 08/09/16 12:19 metal Allergy Rash Uncoded 03/22/16 15:13 Procedures/tests Complete & Pending: Procedures Performed prior 72 hours Category Date Time Status ECG 12 lead ECG [ECG] Routine Y 08/25/17 11:08 Completed Date of admission: 08/19/17 03:45 Primary care physician: Tera Mcintosh MD Consults: 08/20/17 10:24 Consult to Nephrology [CONS] Routine Consulting Provider: [facility] TOMMY Reason for Consult: SILVIO on CKD Call Completed: Yes 08/20/17 11:06 Consult to Cardiology [CONS] Routine Comment: Consulting Provider: Cardiology Katie Reason for Consult: Acute CHF, recent ANASTASIYA, not responding to IV Lasix, developed SILVIO Call Completed: Yes 08/20/17 18:49 Consult to Invasive Line Access Team [CONS] Routine Reason for Consult: Powerglide insertion Line Type: EPIV 08/22/17 12:20 Consult to Physical Therapy [CONS] Stat Comment: Evaluate, develop and implement POC Reason for Consult: evaluation for disposition 08/23/17 14:10 Consult to Gastroenterology [CONS] Routine Consulting Provider: Gastroenterology Katie Reason for Consult: acute blood loss Call Completed: Yes 08/26/17 09:38 Consult to Occupational Therapy [CONS] Routine Comment: Evaluate, develop and implement POC Reason for Consult: eval Consult to Physical Therapy [CONS] Routine Comment: Evaluate, develop and implement POC Reason for Consult: eval - Patient Status Disposition: Transfer SNF Condition: Fair Overall status at discharge: patient is progressing back to baseline - Discharge Instructions Follow Up With: Tera Mcintosh MD [Primary Care Provider] - 08/29/17 11:00 am (Please follow up as schedule..) Additional Instructions: Continue omeprazole. Follow up with the GI service within the next week, might need capsule study. Increase lisinopril up to 40 mg daily, continue amlodipine 10 mg daily. Prednisone taper as follows: 40 mg daily for 5 days, 30 mg for 5 days, 20 mg for 5 days and 10 mg for 5 days - Diet and Activity Activity: increase activity as tolerated Diet: diabetic diet Hospital course: Ms. 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 She represented for acute on chronic worsening of SOB associated with left flank discomfort. She was on prn lasix 20mg QD when her weight is > 189 lb. She has took approx 3 days of lasix since returning home. She was feeling lousy in the last few days and had received empiric macrobid from her PCP for empiric UTI therapy ??. She also completed 5 days worth of augmentin on discharge. Developed SOB that has been worse and had to increase her oxygen to 7 L (from 5 L baseline). Her HR was noted to be in in 130s which prompted ED visit. Patient's Troponin went up to 4.44, from 0.8, was evaluated by the cardiology team and was recommended to continue medical therapy alone. Heparin drip was discontinued The patient was initially reluctant to being evaluated by the GI service, agreed to have an EGD and colonoscopy EGD showed only chronic gastritis, no active source of bleeding. No source of bleeding on the colonoscopy either. CT chest reviewed-showed moderate bilateral pleural effusions with significant opacities and interstitial edema, underlying by basilar pneumonia cannot be excluded. Completed 7 days of Zosyn, vancomycin was discontinued. Trach Culture grew normal dwight of the upper respiratory tract Ejection fraction of 45-50% Hb dropped down 7-8 from a baseline of 12 back in May 2017, Had a Positive hemoccult. Continue omeprazole. - Time Spent with Patient Total time spent providing and/or coordinating discharge services: Greater than 30 minutes (40 min) - Constitutional Vitals: Temp Pulse Resp BP Pulse Ox 97.4 F L 54 16 155/64 97 08/28/17 07:01 08/28/17 07:01 08/28/17 07:01 08/28/17 07:01 08/28/17 07:01 General appearance: Present: A&O X 3, no acute distress, obese, answers questions appropriately Exam: Head Head exam: Present: atraumatic, normocephalic Additional comments: Tracheostomy in place - Eye Eye exam: Present: PERRL, conjuntiva pink, sclera anicteric Pupils: Present: PERRL - Neck Neck exam general surgery: Present: supple, trachea midline. Absent: lymphadenopathy - Respiratory Respiratory exam: Present: decreased breath sounds, CTAB. Absent: accessory muscle use, rales, rhonchi, wheezes - Cardiovascular Cardiovascular exam: Present: RRR, +S1, +S2. Absent: diastolic murmur, gallop, rubs, systolic murmur - GI/Abdominal GI/Abdominal exam: Present: distended, normal bowel sounds, soft, no peritoneal signs. Absent: tenderness - Extremities Exam Extremities exam: Present: warm, radial pulses palpable and symmetrical. Absent : calf tenderness, cyanotic, pedal edema - Neurological Exam Neurological exam: Present: CN II-XII intact, oriented X3, no focal deficits. Absent: pronater drift, facial droop, speech deficit - Skin Skin exam: Present: dry, intact - VTE Documentation of Mechanical Device: Intermittent pneumatic compression device
--- NOTE | 2017-08-28 08:36 | Physician Discharge Referral ---
ExtendedCare Referral Info Provider in Charge after Transfer: PCP Institutional Level of Care: Skilled - Diagnosis (1) Acute on chronic respiratory failure Status: Acute (2) Acute blood loss anemia Status: Acute (3) Elevated troponin Status: Acute (4) CAD (coronary artery disease) Status: Chronic (5) Chronic kidney disease Status: Chronic (6) Diabetes mellitus Status: Chronic (7) Diastolic dysfunction Status: Chronic (8) Tracheostomy in place Status: Chronic (9) Pneumonia Status: Suspected - Transfer Medications Prescriptions: predniSONE [PredniSONE] 40 mg PO DAILY 20 Days tablet Home Medications: Atorvastatin [Lipitor] 40 mg PO HS 03/22/16 [History] Clopidogrel [Plavix] 75 mg PO DAILY 03/22/16 [History] Isosorbide MONOnitrate (24 HR) [Imdur] 60 mg PO BID 03/22/16 [History] Gabapentin [Neurontin] 100 mg PO TID 08/06/17 [History] HydrOXYzine 10 mg PO HS 08/06/17 [History] Metoprolol Tartrate [Lopressor] 50 mg PO BID 08/06/17 [History] Subcutaneous Insulin Pump [T:Slim] 1 each MC DAILY 08/06/17 [History] rOPINIRole [Requip] 3 mg PO HS 08/06/17 [History] Aspirin Enteric Coated [Aspirin EC] 81 mg PO DAILY #30 tablet. 08/12/17 [Rx] Furosemide [Lasix] 20 mg PO DAILY PRN #30 tablet 08/12/17 [Rx] Levalbuterol Neb [Xopenex Neb] 0.63 mg IH [id number] vial.kat 08/28/17 [Rx] Lisinopril [Zestril] 40 mg PO DAILY #0 08/28/17 [Rx] Omeprazole [PriLOSEC] 40 mg PO DAILY@0630 capsule. 08/28/17 [Rx] amLODIPine [Norvasc] 10 mg PO DAILY #0 tablet 08/28/17 [Rx] predniSONE [PredniSONE] 40 mg PO DAILY 20 Days tablet 08/28/17 [Rx] Allergies/Adverse Reactions: 3 Allergy/AdvReac Type Severity Reaction Status Date / Time cephalexin [From Keflex] Allergy Rash Verified 08/09/16 12:19 latex Allergy Rash Verified 08/09/16 12:19 morphine Allergy Confusion Verified 08/09/16 12:19 Hydralazine AdvReac Mild Flushing Verified 08/26/17 12:55 ibuprofen AdvReac Confusion Verified 08/09/16 12:19 metal Allergy Rash Uncoded 03/22/16 15:13 - Respiratory Orders Smoking Cessation: Smoking cessation has been advised. For more information, call the [place] Tobacco Quit Line at 1-319-OCLV-NOW. - Advance Directives Code Status: Full Code - Rehabiliation Orders Other: Continue omeprazole. Follow up with the GI service within the next week, might need capsule study. Increase lisinopril up to 40 mg daily, continue amlodipine 10 mg daily. Prednisone taper as follows: 40 mg daily for 5 days, 30 mg for 5 days, 20 mg for 5 days and 10 mg for 5 days The patient uses her own insulin pump - Diet Orders No Added Salt (JEANNE) CERTIFICATION: I certify that the transfer of the above named patient to an Extended Care Facility is necessary for the continuing treatment of the diagnosis listed. The above information is true and accurate reflection of patient's current condition. Confidential - Redisclosure prohibited without a patient's written consent.
[2017-08-28] MEDS: Furosemide 20 MG TABLET PO SCH (09:16)
[2017-08-28] MEDS: amLODIPine 5 MG TABLET PO SCH (09:16)
[2017-08-28] MEDS: Lisinopril 20 MG TABLET PO SCH (09:17)
[2017-08-28] MEDS: Isosorbide MONOnitrate (24 HR) 60 MG TAB.ER.24H PO SCH (09:17)
[2017-08-28] MEDS: Gabapentin 100 MG CAPSULE PO SCH (09:18)
[2017-08-28] MEDS: predniSONE 20 MG TABLET PO SCH (09:18)
[2017-08-28] MEDS: Subcutaneous Insulin Pump [T:Slim] 1 EACH MC SCH (09:19)
[2017-08-28] MEDS: Aspirin Enteric Coated 81 MG Tablet PO SCH (09:20)
[2017-08-28] MEDS ORDERED: Insulin LISPRO 300 UNITS/3 ML VIAL SQ ONE (09:32)
[2017-08-28 10:48] LABS: BUN/Creatinine Ratio 27 (6-26); Blood Urea Nitrogen 24 mg/dL (8-23); Calcium 8.8 mg/dL (8.6-10.3); Carbon Dioxide 32 mEq/L (23-29); Chloride 107 mEq/L (98-107); Glucose 186 mg/dL (70-105); Osmolality,Calculated 305 (280-300); Potassium 3.5 mEq/L (3.5-5.1); Sodium 143 mEq/L (136-145); eGFR For African Americans > 60 (> 60); eGFR For Non-African Americans > 60 (> 60)
[2017-08-28 10:50] LABS: Hematocrit 29.4 % (35.3-44.9); Hemoglobin 9.3 g/dL (11.5-15.4); Mean Corpuscular HGB Conc 31.6 g/dL (31.6-35.5); Mean Corpuscular Hemoglobin 30.5 pg (28.0-33.3); Mean Corpuscular Volume 96.4 fL (83.0-100.0); Mean Platelet Volume 11.1 fL (9.4-12.4); Platelet Count 221 K/mcL (140-400); Red Blood Count 3.05 M/mcL (3.82-4.97); Red Cell Distribution Width 14.7 % (11.5-14.5)
[2017-08-28] MEDS: Levalbuterol Neb 0.63 MG/3 ML IH SCH (11:38)
== END 2017-08-28 14:15 | DRG 291 ==
LOC: 2ANU → SUATTDRO 03:45
PROVIDERS: ADMIT Family Medicine; ATTEND Internal Medicine
PROC: ENDOEBX (2017-08-25 09:00)